=== PATIENT | female | born 1960 | race Caucasian/White ===

== ENCOUNTER 2016-10-08 14:13 | Outpatient (RCR) | payer OTHER ==
--- OUTSIDE RECORDS SUMMARY | 2016-07-23 13:25 | XMS REPORT | Continuity of Care Document ---
Author Author [facility] Organization [facility] Address Unknown Phone Unavailable Care Team Providers Care Product Safety Engineer Name Role Phone Fabienne Ray PCP [phone] Source Comments Some departments are not documenting in the electronic medical record. If you do not see the information that you expected, contact Release of Information in the Health Information Management department at [phone] for further assistance in locating additional records.[facility] Active Allergies and Adverse Reactions Allergen Noted Date Severity Reactions Comments Amoxicillin 03/05/2013 HIVES Sulfa (Sulfonamide 03/05/2013 SEE COMMENTS Swollen lips , numb face Antibiotics) Current Medications Prescription Sig. Disp. Refills Start End Date Status Date warfarin (COUMADIN) 4 mg Take 4 mg by mouth daily. Active tablet busPIRone (BUSPAR) 15 mg Take 15 mg by mouth three Active tablet times daily. METOPROLOL SUCCINATE Take 50 mg by mouth Active (TOPROL XL PO) daily. DOCOSAHEXANOIC ACID/EPA Take 1,200 mg by mouth Active (FISH OIL PO) daily. ergocalciferol (VITAMIN Take 50,000 Units by Active D-2) 50,000 unit capsule mouth every 7 days. cyanocobalamin(DIL) Inject 1,000 mg to Active (VITAMIN B-12) 100 mcg/mL area(s) as directed every 30 days. magnesium oxide (MAG-OX) Take 400 mg by mouth Active 400 mg tablet daily. CALCIUM PO Take 1,000 mg by mouth. Active Zinc 25 mg Tab Take by mouth. Active atorvastatin (LIPITOR) 40 Take 40 mg by mouth Active mg tablet daily. travoprost(+) (TRAVATAN) Insert or Apply 1 Drop to Active 0.004 % ophthalmic left eye as directed at solution bedtime daily. brimonidine(+) (ALPHAGAN) Apply 1 Drop to both Active 0.2 % ophthalmic solution eyes. doxycycline (VIBRAMYCIN) Take 100 mg by mouth Active 100 mg tablet twice daily. omeprazole DR(+) Take 20 mg by mouth Active (PRILOSEC) 20 mg capsule daily. ondansetron (ZOFRAN) 8 mg Take 8 mg by mouth every Active tablet 8 hours as needed. 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 The patient first noticed a mass in her right breast in October 2012 and consulted her REGISTERED NURSING PROFESSOR; at the time, the mass was small and was thought to be FCCs, but she was due for her annual screening mammograms which her physician encouraged her to get. Due to personal conflicts, the patient did not end up going back in for her mammograms until February. Bilateral diagnostic mammograms 02/23/13 showed a dense, poorly defined, 5.1 x 5.2 cm mass in the area of palpable concern in the upper outer right breast. Right breast ultrasound 02/23/13 showed a 3.6 x 3.6 x 3.4 cm mass corresponding to the mammographic finding. Sono-guided biopsy 02/25/13 revealed triple negative, IDC. An addendum to the pathology report noted that additional testing was run on the tumor because the histological appearance of the tumor did not match up with the tumor markers. 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 The patient saw Dr. Nam on 03/05/13 and he asked to have the pathology slides reviewed at . Regardless of the end results (triple negative breast cancer vs a neuroendocrine tumor) neoadjuvant chemotherapy was recommended. Patient was presented at Breast Conference on 03/10/13. 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 Confirmed plan for neoadjuvant therapy with regimen appropriate for small cell. Paper presented suggesting 120 month survival of at least 50%, ie more favorable than non-breast small cell. Consensus was in favor of surgical treatment for primary breast cancer (mastectomy, SLNB, possible ALND) following neoadjuvant therapy.) Genetic testing pending (history very suggestive of BRCA mutation). Bilateral mastectomy if BRCA +, consider even if negative due to FH. RT consult post op. Dr. Jaxon Kelley contacted. Neoadjuvant therapy in progress with last chemotherapy planned on May 10. Informed him of Breast Conference recommendations: Do not advise concurrent chemoradiation. Advised mastectomy/SLNB/possible ALND following chemotherapy with RT consult after surgery. Conference sheet to be faxed to Dr. Kelley at his request. 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 Fib, asymptomatic multinodular goiter, ovarian cysts, hyperlipidemia, diverticulosis, asthma. Family History: Maternal grandfather with breast cancer in his 30's- he had 4 sisters with breast cancer and 1 sister with ovarian cancer, and maternal first cousin with breast cancer at 55. REGISTERED NURSING PROFESSOR History: Menarche 10, , first live at 15, Left oophorectomy at 30 due to ovarian cysts, hysterectomy at age 38 due to abnormal bleeding. age at menopause unknown Medical Oncology: Dr. Nam Referred by: Dr. Loida Leon Social History Tobacco Use Types Packs/Day Years Used Date Never Smoker Alcohol Use Drinks/Week oz/Week Comments No Last Filed Vital Signs Vital Sign Reading Time Taken Blood Pressure 115/81 04/14/2013 9:10 PM CDT Pulse 83 04/14/2013 9:10 PM CDT Temperature 36.8 C (98.2 F) 03/08/2013 1:08 PM CDT Respiratory Rate - - Height 1.778 m (5' 10") 04/14/2013 9:10 PM CDT Weight 106.595 kg (235 lb) 04/14/2013 9:10 PM CDT Body Mass Index 33.72 04/14/2013 9:10 PM CDT Oxygen Saturation 97% 03/08/2013 1:08 PM CDT Plan of Care Health Maintenance Due Date Last Done Comments Physical (Comprehensive) 1965 Exam Pertussis Vaccine 1969 Tetanus Vaccine 1975 Cervical Cancer Screening 1979 Breast Cancer Screening 1998 Colorectal Cancer 2008 Screening Influenza Vaccine 06/20/2016 Results from Last 3 Months Not on file
[2016-07-23 13:56] LABS: BASOPHILS % (AUTO) 0 % (0-10); EOSINOPHILS # (AUTO) 0.2 10^3/uL (0.0-0.3); EOSINOPHILS % (AUTO) 3 % (0-10); LYMPHOCYTES # (AUTO) 1.5 X 10^3 (1.0-4.0); LYMPHOCYTES % (AUTO) 21 % (12-44); MEAN CORPUSCULAR HEMOGLOBIN 31 PG (25-34); MEAN CORPUSCULAR HGB CONC 35 G/DL (32-36); MEAN CORPUSCULAR VOLUME 88 FL (80-99); MEAN PLATELET VOLUME 9.7 FL (7.4-10.4); MONOCYTES # (AUTO) 0.7 X 10^3 (0.0-1.0); MONOCYTES % (AUTO) 9 % (0-12); NEUTROPHILS # (AUTO) 4.7 X 10^3 (1.8-7.8); NEUTROPHILS % (AUTO) 66 % (42-75); PLATELET COUNT 261 10^3/uL (130-400); RED BLOOD COUNT 4.45 10^6/uL (4.35-5.85); RED CELL DISTRIBUTION WIDTH 12.5 % (10.0-14.5); WHITE BLOOD COUNT 7.1 10^3/uL (4.3-11.0)
[2016-07-23 14:31] LABS: ALANINE AMINOTRANSFERASE 20 U/L (0-55); ALBUMIN 3.6 G/DL (3.2-4.5); ANION GAP 9 MMOL/L (5-14); ASPARTATE AMINO TRANSFERASE 17 U/L (5-34); BILIRUBIN,TOTAL 0.4 MG/DL (0.1-1.0); BLOOD UREA NITROGEN 15 MG/DL (7-18); BUN/CREATININE RATIO 18; CALCIUM 8.7 MG/DL (8.5-10.1); CARBON DIOXIDE 22 MMOL/L (21-32); CHLORIDE 107 MMOL/L (98-107); CREATININE SERUM 0.83 MG/DL (0.60-1.30); GFR ESTIMATED > 60; GLUCOSE 94 MG/DL (70-105); LACTATE DEHYDROGENASE 195 U/L (125-220); POTASSIUM 4.1 MMOL/L (3.6-5.0); SODIUM 138 MMOL/L (135-145); TOTAL PROTEIN 6.7 G/DL (6.4-8.2)
[2016-08-01 16:07] LABS: INR 2.6 (0.8-1.4); PROTHROMBIN TIME PATIENT 27.9 SEC (12.2-14.7)
[2016-09-16 11:50] LABS: INR 4.5 (0.8-1.4); PROTHROMBIN TIME PATIENT 43.1 SEC (12.2-14.7)
[~2016-10-08 14:13] MED LIST: ALPR0.5T PO; ATOR40TA PO; BRIM5DRO12 OD; BSP5T PO; BUSP15TA60 PO; CALCIUM PO; CHOL500044 PO; ERGO2000 PO; FAMO20TA5 PO; FISH1CAP15 PO; GABA300C PO; LORA10CA PO; MAGNESIUM PO; METO50TA7 PO; OMEP20TA33 PO; TRAV0.004S OS; VITAMIN B12 IM; WARF4TAB PO; [UNRECOGNIZED DRUG - OTHER] PO
[2016-10-08 15:53] LABS: BASOPHILS % (AUTO) 0 % (0-10); EOSINOPHILS # (AUTO) 0.2 10^3/uL (0.0-0.3); EOSINOPHILS % (AUTO) 3 % (0-10); LYMPHOCYTES % (AUTO) 27 % (12-44); MEAN CORPUSCULAR HEMOGLOBIN 30 PG (25-34); MEAN CORPUSCULAR HGB CONC 34 G/DL (32-36); MEAN CORPUSCULAR VOLUME 89 FL (80-99); MEAN PLATELET VOLUME 9.3 FL (7.4-10.4); MONOCYTES # (AUTO) 0.9 X 10^3 (0.0-1.0); MONOCYTES % (AUTO) 12 % (0-12); NEUTROPHILS # (AUTO) 4.3 X 10^3 (1.8-7.8); NEUTROPHILS % (AUTO) 58 % (42-75); PLATELET COUNT 267 10^3/uL (130-400); RED BLOOD COUNT 4.64 10^6/uL (4.35-5.85); RED CELL DISTRIBUTION WIDTH 12.4 % (10.0-14.5); WHITE BLOOD COUNT 7.4 10^3/uL (4.3-11.0)
[2016-10-08 16:40] LABS: BILIRUBIN,URINE NEGATIVE (NEGATIVE); KETONES,URINE NEGATIVE (NEGATIVE); LEUKOCYTE ESTERASE ,URINE NEGATIVE (NEGATIVE); NITRITE,URINE NEGATIVE (NEGATIVE); PH,URINE 6 (5-9); PROTEIN,URINE NEGATIVE (NEGATIVE); UROBILINOGEN,URINE NORMAL (NORMAL)
[2016-10-08 16:49] LABS: WBC,URINE RARE /HPF
[2016-10-08 16:49] LABS: INR 2.2 (0.8-1.4); PROTHROMBIN TIME PATIENT 24.4 SEC (12.2-14.7)
[2016-10-08 16:56] LABS: ANION GAP 8 MMOL/L (5-14); BLOOD UREA NITROGEN 17 MG/DL (7-18); BUN/CREATININE RATIO 23; CALCIUM 8.9 MG/DL (8.5-10.1); CARBON DIOXIDE 27 MMOL/L (21-32); CHLORIDE 104 MMOL/L (98-107); CREATININE SERUM 0.75 MG/DL (0.60-1.30); GFR ESTIMATED > 60; GLUCOSE 77 MG/DL (70-105); LACTATE DEHYDROGENASE 274 U/L (125-220); POTASSIUM 4.1 MMOL/L (3.6-5.0); SODIUM 139 MMOL/L (135-145)
[2016-11-14] MEDS ORDERED: TRAM50TA2 PO (10:41)
== END 2016-10-21 | disposition home or self-care (01) ==
LOC: ONC 14:13
PROVIDERS: ATTEND Internal Medicine Hematology & Oncology
DX: D68.59 Other primary thrombophilia (principal); Z79.01 Long term (current) use of anticoagulants
CPT/HCPCS: 36415; 36591; 80048; 80053; 81000; 83615; 85025; 85610; 99213

== ENCOUNTER 2016-11-12 05:39 | Outpatient (CLI) | payer OTHER ==
[~2016-11-12] VITALS: Ht 177.8 cm; Wt 104.8 kg
--- OUTSIDE RECORDS SUMMARY | 2016-11-12 05:44 | XMS REPORT | Continuity of Care Document ---
Author Author [facility] Organization [facility] Address Unknown Phone Unavailable Care Team Providers Care Wind Turbine Installer Name Role Phone Fabienne Ray PCP [phone] Source Comments Some departments are not documenting in the electronic medical record. If you do not see the information that you expected, contact Release of Information in the Health Information Management department at [phone] for further assistance in locating additional records.[facility] Active Allergies and Adverse Reactions [...] breast in October 2012 and consulted her ORTHOTIC AIDE; at the time, the mass was small [...] first cousin with breast cancer at 55. ORTHOTIC AIDE History: Menarche 10, , first live at [...]
[2016-11-12 11:55] VITALS: BP 123/69
== END 2016-11-12 12:10 | disposition home or self-care (01) ==
LOC: PREOP 05:39
PROVIDERS: ATTEND Surgery
DX: Z01.818 Encounter for other preprocedural examination (principal); Z11.2 Encounter for screening for other bacterial diseases; C44.722 Squamous cell carcinoma of skin of right lower limb, including hip; Z79.01 Long term (current) use of anticoagulants
CPT/HCPCS: 87081

== ENCOUNTER 2016-11-14 08:25 | Day surgery (SDC) | payer OTHER ==
[~2016-11-14] VITALS: Ht 177.8 cm; Wt 104.8 kg
--- OUTSIDE RECORDS SUMMARY | 2016-11-14 08:28 | XMS REPORT | Continuity of Care Document ---
Author Author [facility] Organization [facility] Address Unknown Phone Unavailable Care Team Providers Care Site Promotion Agent Name Role Phone Fabienne Ray PCP [phone] Source Comments Some departments are not documenting in the electronic medical record. If you do not see the information that you expected, contact Release of Information in the Health Information Management department at [phone] for further assistance in locating additional records.[facility] Active Allergies and Adverse Reactions Allergen Noted [...] breast in October 2012 and consulted her SECRETARY ADMINISTRATIVE ASSISTANT; at the time, the mass was small [...] first cousin with breast cancer at 55. SECRETARY ADMINISTRATIVE ASSISTANT History: Menarche 10, , first live at [...]
--- OUTSIDE RECORDS SUMMARY | 2016-11-14 08:29 | XMS REPORT | Continuity of Care Document ---
Author Author [facility] Organization [facility] Address Unknown Phone Unavailable Care Team Providers Care Plasterer Rough Name Role Phone Fabienne Ray PCP [phone] Source Comments Some departments are not documenting in the electronic medical record. If you do not see the information that you expected, contact Release of Information in the Health Information Management department at [phone] for further assistance in locating additional records.[facility] Active Allergies and Adverse Reactions Allergen [...] breast in October 2012 and consulted her DIRECTOR MEDICAL AFFAIRS; at the time, the mass was small [...] first cousin with breast cancer at 55. DIRECTOR MEDICAL AFFAIRS History: Menarche 10, , first live at [...]
[2016-11-14] MEDS ORDERED: VANCOMYCIN 1 GM ADD-VANTAGE VIAL IV ONE (08:31)
[2016-11-14] MEDS ORDERED: SODIUM CHLORIDE (ADD-VANTAGE) 250 ML ONE (08:31)
[2016-11-14] MEDS ORDERED: LACTATED RINGERS 1,000 ML IV PRN (09:06)
[2016-11-14] MEDS ORDERED: FAMOTIDINE 20MG/2ML IV (PEPCID) ONE (09:08)
[2016-11-14] MEDS ORDERED: ONDANSETRON 4 MG/2 ML (SDV) Z0FRAN ONE ×2 (09:08→09:19)
[2016-11-14 09:09] LABS: INR 1.3 (0.8-1.4); PROTHROMBIN TIME PATIENT 15.9 SEC (12.2-14.7)
[2016-11-14] MEDS ORDERED: ONDANSETRON 4 MG/2 ML (SDV) Z0FRAN IV ONE (09:15)
[2016-11-14] MEDS ORDERED: VANCOMYCIN 1 GM/NS 250 ML IVPB IV ONE ×2 (09:15)
[2016-11-14] MEDS ORDERED: SCOPOLAMINE 1.5 MG (TRANSDERM-SCOP) PATCH TOP ONE (09:15)
[2016-11-14] MEDS ORDERED: FAMOTIDINE 20MG/2ML IV (PEPCID) IV ONE (09:15)
[2016-11-14] MEDS ORDERED: LACTATED RINGERS 1,000 ML IV ONE (09:19)
[2016-11-14] MEDS ORDERED: fentaNYL INJECTION 100 MCG/2 ML AMP ONE (09:19)
[2016-11-14] MEDS ORDERED: proPOfol 200 MG/20 ML (DIPRIVAN) VIAL IV ONE (09:19)
[2016-11-14] MEDS ORDERED: LIDOCAINE PF 2% 10 ML (XYLOCAINE) AMP ONE (09:19)
[2016-11-14] MEDS ORDERED: MIDAZOLAM 2 MG/2 ML (VERSED) VIAL ONE (09:20)
[2016-11-14] MEDS ORDERED: BUP/EPI 0.25% 1:200,000 (MARCAINE) 30 ML VIAL ONE (09:32)
--- NOTE | 2016-11-14 09:55 | Progress Note-Pre Operative ---
Pre-Operative Progress Note H&P Reviewed The H&P was reviewed, patient examined and no changes noted. 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
[2016-11-14 10:04] VITALS: BP 115/80
[2016-11-14] MEDS ORDERED: TRAM50TA2 PO (10:41)
--- NOTE | 2016-11-14 10:41 | Progress Note-Post Operative ---
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 Estimated blood loss (mL): minimal Specimen(s) collected , cell carcinoma NGOZI OLIVEROS MD Nov 14, 2016 10:41 am
--- NOTE | 2016-11-14 10:42 | Discharge Inst-Simple/Standard ---
Discharge Inst-Standard Discharge Medications New, Converted or Re-Newed RX: RX on Chart Patient Instructions/Follow Up Plan of Care/Instructions/FU: Band-Aid off in 48 hours. Follow-up with my nurse in 10 days for suture removal Activity as Tolerated: Yes Discharge Diet: No Restrictions NGOZI OLIVEROS MD Nov 14, 2016 10:42 am
[2016-11-14] MEDS ORDERED: SEVOFLURANE (ULTANE) 15 ML INHAL SOLN ONE (10:56)
[2016-11-14] MEDS ORDERED: ONDANSETRON 4 MG/2 ML (SDV) Z0FRAN IVP PRN (11:15)
[2016-11-14] MEDS ORDERED: MEPERIDINE (DEMEROL) INJ 50 MG/ML IVP PRN (11:15)
[2016-11-14] MEDS ORDERED: morphine INJ 10 MG/ML 1ML (SYR OR VIAL) IVP PRN (11:15)
[2016-11-14] MEDS ORDERED: BUP/EPI 0.25% 1:200,000 (MARCAINE) 30 ML VIAL INJ ONE (11:15)
[2016-11-14 12:05] VITALS: BP 100/80
[2016-11-14 12:35] VITALS: BP 109/76
[2016-11-14 13:05] VITALS: BP 143/78
[2016-11-14 13:15] VITALS: BP 143/78
--- NOTE | 2016-11-15 10:27 | OPERATIVE REPORT ---
PROCEDURE PHYSICIAN: NGOZI OLIVEROS DATE OF PROCEDURE: 11/14/2016 PREOPERATIVE DIAGNOSIS: Squamous call carcinoma right posterior thigh (1 cm) POSTOPERATIVE DIAGNOSIS: Squamous cell carcinoma right posterior thigh (1 cm) OPERATION: Wide excision with frozen section. SURGEON: Kalyan. ANESTHESIA: General anesthesia. BLOOD LOSS: Minimal. FLUIDS: 300 mL of crystalloids. TYPE OF WOUND: Type I (clean wound). INDICATION FOR THE PROCEDURE: This lady was found to have a squamous cell carcinoma over the right posterior thigh on a shave biopsy performed by one of the primary physicians. She returned for formal excision with frozen section to ensure negative margins. Informed consent was obtained after reviewing the operative details and complications of wound infection and hematoma. DESCRIPTION OF PROCEDURE: She was initially placed supine on the operative table and general anesthesia induced using a laryngeal mask airway. A gram of vancomycin was administered intravenously as prophylaxis against wound infection. Sequential compression devices were placed around her legs, to minimize the risk of venous thrombosis. Subsequently, she was placed in the left lateral decubitus position and her pressure areas were padded and protected. After adequate antiseptic preparation, preemptive analgesia was established using 0.25% Marcaine and epinephrine. An elliptical incision about 3 cm long x 2 cm wide was made and the lesion excised down to the subcutaneous tissue. It was oriented with silk sutures and sent for frozen section analysis. Dr. Morales, our pathologist confirmed negative margins. The defect was then closed using a continuous suture of 5-0 nylon. A nonadherent dressing was then applied. She tolerated the procedure well, was turned supine before being extubated and taken to the recovery room in a stable condition. Job ID: [id number] Dictated Date: 11/14/2016 11:09:04 Loom Changeover Operator Date: 11/15/2016 10:20:21 / ariana
== END 2016-11-14 13:15 | disposition home or self-care (01) ==
LOC: SDC 08:25
PROVIDERS: ATTEND Surgery
DX: C44.722 Squamous cell carcinoma of skin of right lower limb, including hip (principal); Z79.01 Long term (current) use of anticoagulants
CPT/HCPCS: 36415; 85610

== ENCOUNTER 2017-01-21 10:07 | Outpatient (RCR) | payer OTHER ==
--- OUTSIDE RECORDS SUMMARY | 2016-11-04 10:38 | XMS REPORT | Continuity of Care Document ---
Author Author [facility] Organization [facility] Address Unknown Phone Unavailable Care Team Providers Care Framing Specialist Name Role Phone Fabienne Ray PCP [phone] Source Comments Some departments are not documenting in the electronic medical record. If you do not see the information that you expected, contact Release of Information in the Health Information Management department at [phone] for further assistance in locating additional records.[facility] Active Allergies and Adverse Reactions Allergen Noted [...] breast in October 2012 and consulted her CRITICAL CARE UNIT MANAGER; at the time, the mass was small [...] first cousin with breast cancer at 55. CRITICAL CARE UNIT MANAGER History: Menarche 10, , first live at [...]
[2016-11-04 11:14] LABS: BASOPHILS % (AUTO) 0 % (0-10); EOSINOPHILS # (AUTO) 0.2 10^3/uL (0.0-0.3); EOSINOPHILS % (AUTO) 4 % (0-10); LYMPHOCYTES # (AUTO) 1.7 X 10^3 (1.0-4.0); LYMPHOCYTES % (AUTO) 30 % (12-44); MEAN CORPUSCULAR HEMOGLOBIN 30 PG (25-34); MEAN CORPUSCULAR HGB CONC 34 G/DL (32-36); MEAN CORPUSCULAR VOLUME 88 FL (80-99); MEAN PLATELET VOLUME 9.3 FL (7.4-10.4); MONOCYTES # (AUTO) 0.6 X 10^3 (0.0-1.0); MONOCYTES % (AUTO) 10 % (0-12); NEUTROPHILS # (AUTO) 3.3 X 10^3 (1.8-7.8); NEUTROPHILS % (AUTO) 57 % (42-75); PLATELET COUNT 248 10^3/uL (130-400); RED BLOOD COUNT 4.67 10^6/uL (4.35-5.85); RED CELL DISTRIBUTION WIDTH 12.6 % (10.0-14.5); WHITE BLOOD COUNT 5.7 10^3/uL (4.3-11.0)
[2016-11-04 11:31] LABS: INR 3.2 (0.8-1.4); PROTHROMBIN TIME PATIENT 32.4 SEC (12.2-14.7)
[2016-11-04 11:44] LABS: ALANINE AMINOTRANSFERASE 22 U/L (0-55); ALBUMIN 3.6 G/DL (3.2-4.5); ANION GAP 8 MMOL/L (5-14); ASPARTATE AMINO TRANSFERASE 19 U/L (5-34); BILIRUBIN,TOTAL 0.6 MG/DL (0.1-1.0); BLOOD UREA NITROGEN 15 MG/DL (7-18); BUN/CREATININE RATIO 21; CALCIUM 8.9 MG/DL (8.5-10.1); CARBON DIOXIDE 24 MMOL/L (21-32); CHLORIDE 106 MMOL/L (98-107); CREATININE SERUM 0.73 MG/DL (0.60-1.30); GFR ESTIMATED > 60; GLUCOSE 99 MG/DL (70-105); LACTATE DEHYDROGENASE 187 U/L (125-220); POTASSIUM 4.4 MMOL/L (3.6-5.0); SODIUM 138 MMOL/L (135-145); TOTAL PROTEIN 6.7 G/DL (6.4-8.2)
[2016-11-17 10:29] LABS: INR 1.4 (0.8-1.4); PROTHROMBIN TIME PATIENT 17.1 SEC (12.2-14.7)
[2016-11-18 14:34] LABS: INR 1.7 (0.8-1.4)
[2016-11-20 16:30] LABS: INR 1.6 (0.8-1.4); PROTHROMBIN TIME PATIENT 18.8 SEC (12.2-14.7)
[2016-11-24 11:24] LABS: INR 3.2 (0.8-1.4)
[2016-12-02 15:01] LABS: INR 2.7 (0.8-1.4); PROTHROMBIN TIME PATIENT 28.1 SEC (12.2-14.7)
[2016-12-17 11:59] LABS: INR 2.5 (0.8-1.4); PROTHROMBIN TIME PATIENT 26.8 SEC (12.2-14.7)
[2017-01-02 15:28] LABS: INR 2.4 (0.8-1.4); PROTHROMBIN TIME PATIENT 26.1 SEC (12.2-14.7)
[~2017-01-21 10:07] MED LIST changes: +TRAM50TA2 PO
[2017-01-21 10:26] LABS: INR 1.9 (0.8-1.4); PROTHROMBIN TIME PATIENT 21.7 SEC (12.2-14.7)
== END 2017-02-02 | disposition home or self-care (01) ==
LOC: ONC 10:07
PROVIDERS: ATTEND Internal Medicine Hematology & Oncology
DX: D68.59 Other primary thrombophilia (principal); Z79.01 Long term (current) use of anticoagulants
CPT/HCPCS: 36415; 36591; 80053; 83615; 85025; 85610; 99213

== ENCOUNTER → 2017-03-03 | Outpatient (CLI) | payer OTHER ==
[~2017-03-03] MED LIST changes: +CATHETER FLUSH 10 ML SYR IV PRN; +IOHEXOL 350 MG/ML 100 ML (OMNIPAQUE 350) VIAL IV ONE; +NS 100 ML (IVPB) BAG IV ONE
--- NOTE | 2017-03-03 13:32 | Diagnostic Imaging Report ---
EXAMINATION: CT scan of the neck and chest performed with intravenous contrast. INDICATION: History of small cell cancer in the breast. COMPARISON: 10/16/2016 exam of the chest and 03/14/2015 exam of the neck. 100 mL of Omnipaque 350 is administered intravenously. FINDINGS: CT NECK: There is no lymphadenopathy seen. The submandibular, and the parotid glands appear unremarkable. The thyroid glands demonstrate hypodensities in the posterior aspect of the right and left lobes similar to the prior studies up to 1.1 cm on the right and 1 cm on the left without change. The mucosal pharyngeal space appear fairly symmetric. Vascular contrast enhancement is grossly unremarkable. There is no soft tissue mass seen. The right maxillary sinus demonstrates minimal mucosal thickening. There is also mild mucosal thickening in the right ethmoidal air cells. The osseous structures demonstrate degenerative changes in the uncovertebral and facet joints. A sclerotic lesion measuring 1 cm in C7 vertebral body is similar to 2015 exam and has been stable from multiple prior studies in favor of a bony island. CT CHEST: The lungs demonstrate no significant consolidation or mass. The heart size is normal. The mediastinum demonstrate no mass, or lymphadenopathy. No hilar or axillary lymphadenopathy seen. Stable skin thickening in the right breast is seen. No pleural or pericardial effusion. The thoracic aorta is normal in caliber. There is an infusion port with the tip at SVC level. Osseous structures appear grossly unremarkable. Sections of the upper abdomen demonstrate cholecystectomy clips. IMPRESSION: CT NECK: 1. No soft tissue mass or lymphadenopathy seen. 2. Unchanged thyroid nodules. 3. Unchanged 1 cm sclerotic focus in C7 vertebral body, presumably a bony island. CT CHEST: Stable post-therapeutic changes in the right breast. No evidence of tumor recurrence or metastasis. Dictated by: Dictated on workstation # [id number]
== END ==
LOC: RAD 09:53
PROVIDERS: ATTEND Internal Medicine Hematology & Oncology
DX: R22.1 Localized swelling, mass and lump, neck (principal); Z85.3 Personal history of malignant neoplasm of breast
CPT/HCPCS: 70491; 71260

== ENCOUNTER 2017-03-21 22:42 | Emergency (ER) | payer OTHER ==
[~2017-03-21] VITALS: Ht 177.8 cm; Wt 102.1 kg
[~2017-03-21 22:42] MED LIST changes: -CATHETER FLUSH 10 ML SYR IV PRN; -IOHEXOL 350 MG/ML 100 ML (OMNIPAQUE 350) VIAL IV ONE; -NS 100 ML (IVPB) BAG IV ONE
--- NOTE | 2017-03-21 22:59 | ED Chest Pain ---
General Chief Complaint: Chest Pain Stated Complaint: CHEST PAIN Nursing Triage Note: PT TO ED 7 W/ C/O INTERMITTENT CHEST PAIN ONSET 1700 TONIGHT ACCOMPANIED BY SOB. ALSO C/O COUGH X5 MOS Nursing Sepsis Screen: No Definite Risk Source: patient, RN notes reviewed Exam Limitations: no limitations History of Present Illness Time seen by provider: 22:54 Initial Comments Patient presents c/ c/o intermittent chest pain since 17:00. (+) dyspnea when having the pain. Also had some diaphoresis this evening as well. States she has been battling a cough for the last 5 months and is scheduled to see her PCP on Friday in follow up regarding her cough. No known fever. No N/V. Timing/Duration: 4-6 hours, intermittent Severity/Quality: moderate, pressure Location: substernal Radiation: no radiation Activities at Onset: none Modifying Factors: improves with other (none) ASA po CORPORATE RELATIONS MANAGER: No NTG SL CORPORATE RELATIONS MANAGER: No Associated Symptoms: diaphoresis, shortness of breath Allergies and Home Medications Allergies Coded Allergies: NSAIDS (Non-Steroidal Anti-Inflamma (Verified Allergy, Severe, ANAPHYLAXIS , 03/03/17) Sulfa (Sulfonamide Antibiotics) (Unverified Allergy, Intermediate, SWELLING, 03/03/17) amoxicillin (Unverified Allergy, Intermediate, HIVES, 03/03/17) Iodinated Contrast Media - Oral and (Unverified Allergy, Unknown, 05/30/14) atorvastatin (Unverified Allergy, Unknown, 12/19/14) Uncoded Allergies: DIFINITY DYE (Allergy, Unknown, 05/30/14) Home Medications Alprazolam 0.5 Mg Tablet, 0.5 MG PO HS, (Reported) Buspirone HCl 15 Mg Tablet, 15 MG PO HS, (Reported) Cholecalciferol (Vitamin D3) 5,000 Unit Tablet, 5,000 UNIT PO DAILY, (Reported) Famotidine 20 Mg Tablet, 20 MG PO BID, (Reported) Gabapentin 300 Mg Capsule, 300 MG PO HS, (Reported) Loratadine 10 Mg Capsule, 10 MG PO HS, (Reported) Metoprolol Succinate 50 Mg Tab.sr.24h, 50 MG PO HS, (Reported) Omeprazole Magnesium 20 Mg Tablet.dr, 20 MG PO DAILY PRN for HEARTBURN, ( Reported) Warfarin Sodium 4 Mg Tablet, 4 MG PO HS, (Reported) [Magnesium/Calcium/Zi] , 1 TAB PO HS, (Reported) [Vitamin B12] , 1,000 MCG IM MONTHLY, (Reported) Review of Systems Constitutional: see HPI, diaphoresis Respiratory: See HPI, Cough, Shortness of Air, SOA at Rest Cardiovascular: See HPI, Chest Pain All Other Systems Reviewed Negative Unless Noted: Yes (Negative excepted noted.) Past [id number]-Itikpt-[id number] Hx Patient Social History Alcohol Use: Denies Use Recreational Drug Use: No Smoking Status: Never a Smoker Recent Foreign Travel: No Contact w/Someone Who Travel: No Recent Infectious Disease Expo: No Recent Hopitalizations: No Immunizations Up To Date Date of Influenza Vaccine: Jul 20, 2016 Seasonal Allergies Seasonal Allergies: Yes Surgeries HX Surgeries: Yes (PORT VENA CAVA FILTER, SIMOID colectomy, port) Surgeries: Abdominal, Adenoidectomy, Appendectomy, Section, Gallbladder, Hysterectomy, Tonsillectomy Respiratory Hx Respiratory Disorders: Yes Respiratory Disorders: Asthma Cardiovascular Hx Cardiac Disorders: Yes Cardiac Disorders: Deep Vein Thrombosis, Irregular Heartbeat Neurological Hx Neurological Disorders: No Reproductive System Hx Reproductive Disorders: No SUPERVISOR PAINTING History: Hysterectomy Genitourinary Hx Genitourinary Disorders: No Gastrointestinal Hx Gastrointestinal Disorders: Yes Gastrointestinal Disorders: Diverticulosis Musculoskeletal Hx Musculoskeletal Disorders: No Endocrine Hx Endocrine Disorders: Yes (nodules on thyroid) HEENT HX ENT Disorders: No Cancer Hx Cancer: Yes Cancer: Breast Psychosocial Hx Psychiatric Problems: No Integumentary HX Skin/Integumentary Disorder: Yes (SCC) Blood Transfusions Hx Blood Disorders: Yes (ANTI THROMBIN 3 DEFICENCY) Physical Exam Vital Signs Vital Sign - Last 12Hours 03/21/17 22:42 Temp 98.3 Pulse 73 Resp 14 B/P (MAP) 135/97 Pulse Ox 95 O2 Delivery Room Air Capillary Refill : Less Than 3 Seconds General Appearance: No Apparent Distress, WD/WN, Obese Respiratory: Lungs Clear, No Respiratory Distress Cardiovascular: Regular Rate, Rhythm Rectal: Deferred Neurologic/Psychiatric: Alert, Oriented x3, No Motor/Sensory Deficits, Other ( seems somewhat anxious; sighing a lot) Skin: Warm/Dry Progress/Results/Core Measures Results/Orders Lab Results Laboratory Tests Test 03/21/17 22:50 03/21/17 23:22 Range/Units White Blood Count 7.6 4.3-11.0 10^3/uL Red Blood Count 4.52 4.35-5.85 10^6/uL Hemoglobin 13.8 11.5-16.0 G/DL Hematocrit 40 35-52 % Mean Corpuscular Volume 88 80-99 FL Mean Corpuscular Hemoglobin 31 25-34 PG Mean Corpuscular Hemoglobin Concent 35 32-36 G/DL Red Cell Distribution Width 12.1 10.0-14.5 % Platelet Count 240 130-400 10^3/uL Mean Platelet Volume 10.0 7.4-10.4 FL Neutrophils (%) (Auto) 62 42-75 % Lymphocytes (%) (Auto) 26 12-44 % Monocytes (%) (Auto) 9 0-12 % Eosinophils (%) (Auto) 3 0-10 % Basophils (%) (Auto) 0 0-10 % Neutrophils # (Auto) 4.7 1.8-7.8 X 10^3 Lymphocytes # (Auto) 2.0 1.0-4.0 X 10^3 Monocytes # (Auto) 0.7 0.0-1.0 X 10^3 Eosinophils # (Auto) 0.3 0.0-0.3 10^3/uL Basophils # (Auto) 0.0 0.0-0.1 10^3/uL Prothrombin Time 43.7 H 12.2-14.7 SEC INR Comment 4.6 H 0.8-1.4 Sodium Level 141 135-145 MMOL/L Potassium Level 3.6 3.6-5.0 MMOL/L Chloride Level 106 98-107 MMOL/L Carbon Dioxide Level 22 21-32 MMOL/L Anion Gap 13 5-14 MMOL/L Blood Urea Nitrogen 19 H 7-18 MG/DL Creatinine 0.84 0.60-1.30 MG/DL Estimat Glomerular Filtration Rate > 60 BUN/Creatinine Ratio 23 Glucose Level 136 H 70-105 MG/DL Calcium Level 9.3 8.5-10.1 MG/DL Magnesium Level 1.9 1.8-2.4 MG/DL Total Bilirubin 0.4 0.1-1.0 MG/DL Aspartate Amino Transf (AST/SGOT) 16 5-34 U/L Alanine Aminotransferase (ALT/SGPT) 19 0-55 U/L Alkaline Phosphatase 68 40-136 U/L Troponin I < 0.30 <0.30 NG/ML B-Type Natriuretic Peptide 45.6 <100.0 PG/ML Total Protein 7.1 6.4-8.2 G/DL Albumin 3.8 3.2-4.5 G/DL Lipase 32 8-78 U/L Thyroid Stimulating Hormone (TSH) 1.76 0.35-4.94 UIU/ML Urine Color YELLOW Urine Clarity CLEAR Urine pH 6 5-9 Urine Specific [place] 1.020 1.016-1.022 Urine Protein NEGATIVE NEGATIVE Urine Glucose (UA) NEGATIVE NEGATIVE Urine Ketones NEGATIVE NEGATIVE Urine Nitrite NEGATIVE NEGATIVE Urine Bilirubin NEGATIVE NEGATIVE Urine Urobilinogen NORMAL NORMAL MG/DL Urine Leukocyte Esterase 1+ H NEGATIVE Urine RBC (Auto) NEGATIVE NEGATIVE Urine RBC RARE /HPF Urine WBC NONE /HPF Urine Crystals NONE /LPF Urine Bacteria NEGATIVE /HPF Urine Casts NONE /LPF Urine Mucus NEGATIVE /LPF Urine Culture Indicated NO My Orders Orders - SALVATORE SOTO DO Implanted Port: Access (03/21/17 22:59) Ekg Tracing (03/21/17 22:59) BNP (03/21/17 22:59) Cbc With Automated Diff (03/21/17 22:59) Comprehensive Metabolic Panel (03/21/17 22:59) Lipase (03/21/17 22:59) Magnesium (03/21/17 22:59) Protime With Inr (03/21/17 22:59) Thyroid Stimulating Hormone (03/21/17 22:59) Troponin I (03/21/17 22:59) Ua Culture If Indicated (03/21/17 22:59) Chest 1 View, Ap/Pa Only (03/21/17 22:59) Vital Signs/I&O Vital Sign - Last 12Hours 03/21/17 03/21/17 03/22/17 22:42 22:57 00:27 Temp 98.3 Pulse 73 80 Resp 14 20 B/P (MAP) 135/97 Pulse Ox 95 98 O2 Delivery Room Air Room Air Blood Pressure Mean: 110 Progress Note : Progress Note Really feel there is an anxiety component to the patient's symptoms this evening. ECG Initial ECG Impression Date: Mar 21, 2017 Initial ECG Impression Time: 22:49 Initial ECG Rate: 72 Initial ECG Rhythm: Normal Sinus Initial ECG Intervals: Normal Initial ECG Impression: Normal Initial ECG Comparisson: Unchanged Diagnostic Imaging Diagonstic Imaging: Xray Plain Films/CT/US/NM/MRI: chest Reviewed: Reviewed by Me (NAD) Departure Impression Impression: Primary Impression: Non-cardiac chest pain Additional Impressions: Chronic cough Elevated INR (international normalized ratio) due to prior anticoagulant medication ingestion Disposition: 01 HOME, SELF-CARE Condition: Stable Departure-Patient Inst. Decision time for Depature: 00:14 Referrals: LAINEY HIGGINBOTHAM MD (PCP/Family) Primary Care Physician Patient Instructions: Chest Pain That Is Not Caused by the Heart (DC) Add. Discharge Instructions: All discharge instructions reviewed with patient and/or family. Voiced understanding. HOLD YOUR COUMADIN UNTIL FRIDAY. KEEP YOUR APPOINTMENT WITH DR. HIGGINBOTHAM ON FRIDAY, SCHEDULED. RETURN IF YOUR SYMPTOMS WORSEN. SALVATORE SOTO DO Mar 21, 2017 22:59
[2017-03-21 23:06] LABS: BASOPHILS % (AUTO) 0 % (0-10); EOSINOPHILS # (AUTO) 0.3 10^3/uL (0.0-0.3); EOSINOPHILS % (AUTO) 3 % (0-10); LYMPHOCYTES % (AUTO) 26 % (12-44); MEAN CORPUSCULAR HEMOGLOBIN 31 PG (25-34); MEAN CORPUSCULAR HGB CONC 35 G/DL (32-36); MEAN CORPUSCULAR VOLUME 88 FL (80-99); MONOCYTES # (AUTO) 0.7 X 10^3 (0.0-1.0); MONOCYTES % (AUTO) 9 % (0-12); NEUTROPHILS # (AUTO) 4.7 X 10^3 (1.8-7.8); NEUTROPHILS % (AUTO) 62 % (42-75); PLATELET COUNT 240 10^3/uL (130-400); RED BLOOD COUNT 4.52 10^6/uL (4.35-5.85); RED CELL DISTRIBUTION WIDTH 12.1 % (10.0-14.5); WHITE BLOOD COUNT 7.6 10^3/uL (4.3-11.0)
[2017-03-21 23:10] LABS: INR 4.6 (0.8-1.4); PROTHROMBIN TIME PATIENT 43.7 SEC (12.2-14.7)
[2017-03-21 23:20] LABS: ALANINE AMINOTRANSFERASE 19 U/L (0-55); ALBUMIN 3.8 G/DL (3.2-4.5); ANION GAP 13 MMOL/L (5-14); ASPARTATE AMINO TRANSFERASE 16 U/L (5-34); BILIRUBIN,TOTAL 0.4 MG/DL (0.1-1.0); BLOOD UREA NITROGEN 19 MG/DL (7-18); BUN/CREATININE RATIO 23; CALCIUM 9.3 MG/DL (8.5-10.1); CARBON DIOXIDE 22 MMOL/L (21-32); CHLORIDE 106 MMOL/L (98-107); CREATININE SERUM 0.84 MG/DL (0.60-1.30); GFR ESTIMATED > 60; GLUCOSE 136 MG/DL (70-105); LIPASE 32 U/L (8-78); MAGNESIUM 1.9 MG/DL (1.8-2.4); POTASSIUM 3.6 MMOL/L (3.6-5.0); SODIUM 141 MMOL/L (135-145); TOTAL PROTEIN 7.1 G/DL (6.4-8.2)
[2017-03-21 23:29] LABS: BILIRUBIN,URINE NEGATIVE (NEGATIVE); KETONES,URINE NEGATIVE (NEGATIVE); LEUKOCYTE ESTERASE ,URINE 1+ (NEGATIVE); NITRITE,URINE NEGATIVE (NEGATIVE); PH,URINE 6 (5-9); PROTEIN,URINE NEGATIVE (NEGATIVE); UROBILINOGEN,URINE NORMAL (NORMAL)
[2017-03-21 23:40] LABS: THYROID STIMULATING HORMONE 1.76 UIU/ML (0.35-4.94); TROPONIN I < 0.30 NG/ML (<0.30)
[2017-03-22 00:27] VITALS: BP 119/80
--- NOTE | 2017-03-22 09:09 | Diagnostic Imaging Report ---
EXAMINATION: Portable chest. INDICATION: Chest pain. Correlation made with a CT of the chest from March 03, 2017. FINDINGS: A left subclavian port is present. There is no focal pulmonary consolidation. There is no effusion or evidence of pneumothorax. Heart size and mediastinal contours appear stable without evidence of failure. No suspicious osseous abnormality is demonstrated. IMPRESSION: No radiographic evidence of an acute cardiopulmonary process. Dictated by: Dictated on workstation # [id number]
== END 2017-03-22 00:27 | disposition home or self-care (01) ==
LOC: EDUNIT# 22:42 → ER 22:43
DX: R07.89 Other chest pain (principal); R05 Cough; R79.1 Abnormal coagulation profile; Z79.01 Long term (current) use of anticoagulants; Z90.49 Acquired absence of other specified parts of digestive tract; Z86.718 Personal history of other venous thrombosis and embolism
CPT/HCPCS: 36415; 71010; 80053; 81000; 83690; 83735; 83880; 84443; 84484; 85025; 85610

== ENCOUNTER 2017-05-05 09:54 | Outpatient (RCR) | payer OTHER ==
[2017-02-14 16:03] LABS: INR 2.9 (0.8-1.4); PROTHROMBIN TIME PATIENT 30.2 SEC (12.2-14.7)
[2017-03-03 09:56] LABS: BASOPHILS % (AUTO) 0 % (0-10); EOSINOPHILS # (AUTO) 0.4 10^3/uL (0.0-0.3); EOSINOPHILS % (AUTO) 6 % (0-10); LYMPHOCYTES # (AUTO) 1.6 X 10^3 (1.0-4.0); LYMPHOCYTES % (AUTO) 25 % (12-44); MEAN CORPUSCULAR HEMOGLOBIN 31 PG (25-34); MEAN CORPUSCULAR HGB CONC 35 G/DL (32-36); MEAN CORPUSCULAR VOLUME 88 FL (80-99); MEAN PLATELET VOLUME 9.6 FL (7.4-10.4); MONOCYTES # (AUTO) 0.6 X 10^3 (0.0-1.0); MONOCYTES % (AUTO) 9 % (0-12); NEUTROPHILS # (AUTO) 3.8 X 10^3 (1.8-7.8); NEUTROPHILS % (AUTO) 60 % (42-75); PLATELET COUNT 252 10^3/uL (130-400); RED BLOOD COUNT 4.65 10^6/uL (4.35-5.85); RED CELL DISTRIBUTION WIDTH 12.6 % (10.0-14.5); WHITE BLOOD COUNT 6.3 10^3/uL (4.3-11.0)
[2017-03-03 10:30] LABS: ALANINE AMINOTRANSFERASE 20 U/L (0-55); ALBUMIN 3.6 G/DL (3.2-4.5); ANION GAP 6 MMOL/L (5-14); ASPARTATE AMINO TRANSFERASE 17 U/L (5-34); BILIRUBIN,TOTAL 0.6 MG/DL (0.1-1.0); BLOOD UREA NITROGEN 22 MG/DL (7-18); BUN/CREATININE RATIO 29; CALCIUM 8.9 MG/DL (8.5-10.1); CARBON DIOXIDE 27 MMOL/L (21-32); CHLORIDE 107 MMOL/L (98-107); CREATININE SERUM 0.77 MG/DL (0.60-1.30); GFR ESTIMATED > 60; GLUCOSE 98 MG/DL (70-105); LACTATE DEHYDROGENASE 174 U/L (125-220); POTASSIUM 4.1 MMOL/L (3.6-5.0); SODIUM 140 MMOL/L (135-145); TOTAL PROTEIN 6.7 G/DL (6.4-8.2)
[2017-05-05 10:37] LABS: BASOPHILS % (AUTO) 0 % (0-10); EOSINOPHILS # (AUTO) 0.3 10^3/uL (0.0-0.3); EOSINOPHILS % (AUTO) 4 % (0-10); LYMPHOCYTES # (AUTO) 1.8 X 10^3 (1.0-4.0); LYMPHOCYTES % (AUTO) 24 % (12-44); MEAN CORPUSCULAR HEMOGLOBIN 30 PG (25-34); MEAN CORPUSCULAR HGB CONC 34 G/DL (32-36); MEAN CORPUSCULAR VOLUME 89 FL (80-99); MEAN PLATELET VOLUME 9.7 FL (7.4-10.4); MONOCYTES # (AUTO) 0.7 X 10^3 (0.0-1.0); MONOCYTES % (AUTO) 10 % (0-12); NEUTROPHILS # (AUTO) 4.5 X 10^3 (1.8-7.8); NEUTROPHILS % (AUTO) 62 % (42-75); PLATELET COUNT 273 10^3/uL (130-400); RED BLOOD COUNT 4.73 10^6/uL (4.35-5.85); RED CELL DISTRIBUTION WIDTH 12.4 % (10.0-14.5); WHITE BLOOD COUNT 7.3 10^3/uL (4.3-11.0)
[2017-05-05 11:07] LABS: INR 2.6 (0.8-1.4)
[2017-05-05 11:15] LABS: ALANINE AMINOTRANSFERASE 26 U/L (0-55); ALBUMIN 3.8 GM/DL (3.2-4.5); ANION GAP 9 MMOL/L (5-14); ASPARTATE AMINO TRANSFERASE 20 U/L (5-34); BILIRUBIN,TOTAL 0.6 MG/DL (0.1-1.0); BLOOD UREA NITROGEN 21 MG/DL (7-18); BUN/CREATININE RATIO 27; CARBON DIOXIDE 26 MMOL/L (21-32); CHLORIDE 104 MMOL/L (98-107); CREATININE SERUM 0.79 MG/DL (0.60-1.30); GFR ESTIMATED > 60; GLUCOSE 100 MG/DL (70-105); POTASSIUM 4.5 MMOL/L (3.6-5.0); SODIUM 139 MMOL/L (135-145); TOTAL PROTEIN 6.8 GM/DL (6.4-8.2)
== END 2017-05-15 | disposition home or self-care (01) ==
LOC: ONC 09:54
PROVIDERS: ATTEND Internal Medicine Hematology & Oncology
DX: D68.59 Other primary thrombophilia (principal); Z79.01 Long term (current) use of anticoagulants
CPT/HCPCS: 36415; 36591; 80053; 83615; 85025; 85610

== ENCOUNTER 2017-05-29 15:30 | Outpatient (RCR) | payer OTHER ==
[2017-03-24 10:53] LABS: MEAN PLATELET VOLUME 9.9 FL (7.4-10.4); RED BLOOD COUNT 4.96 10^6/uL (4.35-5.85); RED CELL DISTRIBUTION WIDTH 12.3 % (10.0-14.5); WHITE BLOOD COUNT 7.5 10^3/uL (4.3-11.0)
[2017-03-24 11:07] LABS: INR 1.3 (0.8-1.4)
[2017-03-24 11:16] LABS: ALANINE AMINOTRANSFERASE 21 U/L (0-55); ANION GAP 8 MMOL/L (5-14); ASPARTATE AMINO TRANSFERASE 21 U/L (5-34); BILIRUBIN,TOTAL 0.5 MG/DL (0.1-1.0); BLOOD UREA NITROGEN 24 MG/DL (7-18); BUN/CREATININE RATIO 29; CALCIUM 9.3 MG/DL (8.5-10.1); CARBON DIOXIDE 27 MMOL/L (21-32); CHLORIDE 105 MMOL/L (98-107); CREATININE SERUM 0.82 MG/DL (0.60-1.30); GFR ESTIMATED > 60; GLUCOSE 87 MG/DL (70-105); POTASSIUM 4.7 MMOL/L (3.6-5.0); SODIUM 140 MMOL/L (135-145); TOTAL PROTEIN 7.6 G/DL (6.4-8.2)
[2017-03-24 11:40] LABS: THYROID STIMULATING HORMONE 1.69 UIU/ML (0.35-4.94)
[2017-04-08 16:53] LABS: INR 2.5 (0.8-1.4)
[2017-05-29 16:11] LABS: INR 2.7 (0.8-1.4); PROTHROMBIN TIME PATIENT 28.8 SEC (12.2-14.7)
== END 2017-06-22 | disposition home or self-care (01) ==
LOC: LAB 15:30
PROVIDERS: ATTEND Nurse Practitioner Family
DX: R05 Cough (principal); R22.1 Localized swelling, mass and lump, neck; Z79.01 Long term (current) use of anticoagulants
CPT/HCPCS: 36415; 80053; 84439; 84443; 85027; 85610; 87070; 87205

== ENCOUNTER → 2017-05-29 | Outpatient (CLI) | payer OTHER ==
[2017-05-29 16:18] LABS: ALANINE AMINOTRANSFERASE 21 U/L (0-55); ALBUMIN 3.7 GM/DL (3.2-4.5); ANION GAP 8 MMOL/L (5-14); ASPARTATE AMINO TRANSFERASE 19 U/L (5-34); BILIRUBIN,TOTAL 0.5 MG/DL (0.1-1.0); BLOOD UREA NITROGEN 16 MG/DL (7-18); BUN/CREATININE RATIO 21; CARBON DIOXIDE 25 MMOL/L (21-32); CHLORIDE 107 MMOL/L (98-107); CREATININE SERUM 0.77 MG/DL (0.60-1.30); GFR ESTIMATED > 60; GLUCOSE 116 MG/DL (70-105); MAGNESIUM 1.8 MG/DL (1.8-2.4); SODIUM 140 MMOL/L (135-145)
[2017-05-30 08:07] LABS: FOLIC ACID 12.1 ng/mL (1.5-24.0)
== END ==
LOC: LAB 15:29
PROVIDERS: ATTEND Family Medicine
DX: R91.8 Other nonspecific abnormal finding of lung field (principal); G90.09 Other idiopathic peripheral autonomic neuropathy; G62.2 Polyneuropathy due to other toxic agents; E53.8 Deficiency of other specified B group vitamins
CPT/HCPCS: 36415; 80053; 82607; 82746; 83036; 83735

== ENCOUNTER 2017-06-16 15:18 | Outpatient (RCR) | payer OTHER | END 2017-07-19 | disposition home or self-care (01) | LOC: ONC 15:18 | PROVIDERS: ATTEND Internal Medicine Hematology & Oncology | DX: D68.59 Other primary thrombophilia (principal); Z79.01 Long term (current) use of anticoagulants; Z45.2 Encounter for adjustment and management of vascular access device | CPT/HCPCS: 96523 ==

== ENCOUNTER 2017-09-15 08:00 | Outpatient (RCR) | payer OTHER | END 2017-10-16 14:33 | disposition home or self-care (01) | DX: M54.5 Low back pain (principal) ==

== ENCOUNTER → 2017-10-06 | Outpatient (CLI) | payer OTHER ==
--- NOTE | 2017-10-06 12:53 | Diagnostic Imaging Report ---
EXAMINATION: Bilateral diagnostic mammogram with tomography evaluation. The current study was also evaluated with a Computer Aided Detection (CAD) system. 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 The patient also has palpable lumps bilaterally. FINDINGS: The right breast demonstrates skin thickening and a biopsy clip in the outer aspect. The overall appearance has not changed from the previous study. The left breast demonstrates a retroareolar circumscribed lesion which appears more prominent compared to the prior studies but without change, suggestive of a cyst, less than 1 cm in size. There are also retroareolar calcifications without change from multiple prior exams, suggestive of benign etiology. IMPRESSION: Stable mammographic findings. An ultrasound evaluation is pending. ACR BI-RADS Category 0: Incomplete. (Needs additional imaging evaluation). Result letter will be mailed to the patient. Note: At least 10% of breast cancer is not imaged by mammography. Dictated by: Dictated on workstation # [id number]
--- NOTE | 2017-10-06 13:36 | Diagnostic Imaging Report ---
EXAMINATION: Bilateral breast ultrasound. INDICATION: History of small cell cancer in the breast. The patient also has a palpable lump. TECHNIQUE: The four quadrants and retroareolar region of the breasts were scanned bilaterally. FINDINGS: The left breast lump laterally demonstrates no underlying lesion with the other quadrants appearing unremarkable. In the right breast, there is a stable cystic lesion measuring 1 cm in size at the 9 o'clock zone 4 cm from the nipple with thin septations and no internal vascularity, similar to multiple prior exams including 01/22/2016 with no adverse development. It is also stable from July 2015. No other lesion is identified. IMPRESSION: No suspicious mass. Clinical followup of the palpable areas is recommended. ACR BI-RADS Category 2: Benign findings. Dictated by: Dictated on workstation # [id number]
== END ==
LOC: RAD 12:19
PROVIDERS: ATTEND Internal Medicine Hematology & Oncology
DX: N64.59 Other signs and symptoms in breast (principal); Z85.3 Personal history of malignant neoplasm of breast
CPT/HCPCS: 77066

== ENCOUNTER → 2017-10-08 | Outpatient (CLI) | payer OTHER | LOC: CARD 10:13 | PROVIDERS: ATTEND Internal Medicine Interventional Cardiology | DX: I49.3 Ventricular premature depolarization (principal); D68.59 Other primary thrombophilia | CPT/HCPCS: 93306 ==

== ENCOUNTER 2017-10-27 16:59 | Outpatient (RCR) | payer OTHER ==
[2017-07-30 13:33] LABS: INR 3.1 (0.8-1.4); PROTHROMBIN TIME PATIENT 31.9 SEC (12.2-14.7)
[2017-09-04 11:21] LABS: INR 2.7 (0.8-1.4); PROTHROMBIN TIME PATIENT 28.9 SEC (12.2-14.7)
[2017-09-30 12:13] LABS: BASOPHILS % (AUTO) 0 % (0-10); EOSINOPHILS # (AUTO) 0.4 10^3/uL (0.0-0.3); EOSINOPHILS % (AUTO) 4 % (0-10); HEMATOCRIT 40 % (35-52); HEMOGLOBIN 13.8 G/DL (11.5-16.0); LYMPHOCYTES # (AUTO) 1.5 X 10^3 (1.0-4.0); LYMPHOCYTES % (AUTO) 17 % (12-44); MEAN CORPUSCULAR HEMOGLOBIN 31 PG (25-34); MEAN CORPUSCULAR HGB CONC 35 G/DL (32-36); MEAN CORPUSCULAR VOLUME 89 FL (80-99); MEAN PLATELET VOLUME 9.9 FL (7.4-10.4); MONOCYTES # (AUTO) 0.8 X 10^3 (0.0-1.0); MONOCYTES % (AUTO) 9 % (0-12); NEUTROPHILS # (AUTO) 6.2 X 10^3 (1.8-7.8); NEUTROPHILS % (AUTO) 70 % (42-75); PLATELET COUNT 254 10^3/uL (130-400); RED BLOOD COUNT 4.48 10^6/uL (4.35-5.85); RED CELL DISTRIBUTION WIDTH 12.3 % (10.0-14.5); WHITE BLOOD COUNT 8.8 10^3/uL (4.3-11.0)
[2017-09-30 12:30] LABS: INR 2.7 (0.8-1.4); PROTHROMBIN TIME PATIENT 28.8 SEC (12.2-14.7)
[2017-09-30 12:39] LABS: ALANINE AMINOTRANSFERASE 27 U/L (0-55); ALBUMIN 3.7 GM/DL (3.2-4.5); ALKALINE PHOSPHATASE 71 U/L (40-136); BILIRUBIN,TOTAL 0.4 MG/DL (0.1-1.0); BUN/CREATININE RATIO 19; CALCIUM 8.7 MG/DL (8.5-10.1); CARBON DIOXIDE 25 MMOL/L (21-32); CHLORIDE 103 MMOL/L (98-107); CREATININE SERUM 0.69 MG/DL (0.60-1.30); GFR ESTIMATED > 60; GLUCOSE 91 MG/DL (70-105); POTASSIUM 4.3 MMOL/L (3.6-5.0); SODIUM 137 MMOL/L (135-145); TOTAL PROTEIN 7.1 GM/DL (6.4-8.2)
[2017-10-27 17:27] LABS: INR 1.8 (0.8-1.4); PROTHROMBIN TIME PATIENT 21.3 SEC (12.2-14.7)
== END 2017-10-28 | disposition home or self-care (01) ==
LOC: ONC 16:59
PROVIDERS: ATTEND Internal Medicine Hematology & Oncology
DX: D68.59 Other primary thrombophilia (principal); Z79.01 Long term (current) use of anticoagulants
CPT/HCPCS: 36591; 80053; 83615; 85025; 85610; 99213

== ENCOUNTER → 2017-12-17 | Outpatient (REF) ==
--- NOTE | 2017-12-17 16:25 | Diagnostic Imaging Report ---
PROCEDURE: CT head and CT cervical spine without contrast. TECHNIQUE: Multiple contiguous axial images were obtained through the brain and cervical spine without the use of intravenous contrast. Sagittal and coronal reformations through the cervical spine were then performed. INDICATION: Fall. Headache and neck stiffness. COMPARISON: None. FINDINGS: Head CT: No acute intracranial hemorrhage, mass effect, or edema is seen. There is mild atrophy. The ventricles appear normal. There are a few focal areas of hypodensity in periventricular white matter which are nonspecific but likely related to chronic microvascular ischemic change. Paranasal sinuses and mastoids are clear, as visualized. Cervical spine CT: No acute fracture, malalignment, or osseous destructive process is seen. Vertebral body heights are maintained. There is mild disc space narrowing throughout the cervical spine, most pronounced at C5/C6 and C6/C7. Uncovertebral joint spurring and disc osteophyte complex result in foraminal and central narrowing at C5/C6. Prevertebral soft tissues appear unremarkable. IMPRESSION: 1. No evidence of acute intracranial abnormality. 2. No evidence of an acute cervical spine abnormality. Degenerative changes in cervical spine, as described. Dictated by: Dictated on workstation # [id number]
== END | disposition home or self-care (01) ==
LOC: OCC 15:25
PROVIDERS: ATTEND Nurse Practitioner Family
CPT/HCPCS: 70450; 72125

== ENCOUNTER → 2018-02-23 | Outpatient (CLI) | payer OTHER ==
[2018-02-23 12:30] LABS: BASOPHILS % (AUTO) 0 % (0-10); EOSINOPHILS # (AUTO) 0.2 10^3/uL (0.0-0.3); EOSINOPHILS % (AUTO) 2 % (0-10); HEMATOCRIT 41 % (35-52); HEMOGLOBIN 14.5 G/DL (11.5-16.0); LYMPHOCYTES # (AUTO) 1.4 X 10^3 (1.0-4.0); LYMPHOCYTES % (AUTO) 13 % (12-44); MEAN CORPUSCULAR HEMOGLOBIN 32 PG (25-34); MEAN CORPUSCULAR HGB CONC 35 G/DL (32-36); MEAN CORPUSCULAR VOLUME 90 FL (80-99); MEAN PLATELET VOLUME 9.9 FL (7.4-10.4); MONOCYTES # (AUTO) 0.8 X 10^3 (0.0-1.0); MONOCYTES % (AUTO) 7 % (0-12); NEUTROPHILS # (AUTO) 8.3 X 10^3 (1.8-7.8); NEUTROPHILS % (AUTO) 78 % (42-75); PLATELET COUNT 230 10^3/uL (130-400); RED CELL DISTRIBUTION WIDTH 12.4 % (10.0-14.5); WHITE BLOOD COUNT 10.7 10^3/uL (4.3-11.0)
[2018-02-23 12:46] LABS: ALANINE AMINOTRANSFERASE 25 U/L (0-55); ALBUMIN 3.9 GM/DL (3.2-4.5); ALKALINE PHOSPHATASE 62 U/L (40-136); BILIRUBIN,TOTAL 0.8 MG/DL (0.1-1.0); BUN/CREATININE RATIO 21; CALCIUM 9.3 MG/DL (8.5-10.1); CARBON DIOXIDE 28 MMOL/L (21-32); CHLORIDE 103 MMOL/L (98-107); CHOLESTEROL 211 MG/DL (< 200); CREATININE SERUM 0.76 MG/DL (0.60-1.30); GFR ESTIMATED > 60; GLUCOSE 98 MG/DL (70-105); HDL CHOLESTEROL 47 MG/DL (40-60); POTASSIUM 4.6 MMOL/L (3.6-5.0); SODIUM 138 MMOL/L (135-145); TOTAL PROTEIN 7.1 GM/DL (6.4-8.2); TRIGLYCERIDES 128 MG/DL (<150); VLDL CHOLESTEROL 26 MG/DL (5-40)
== END ==
LOC: LAB 12:03
PROVIDERS: ATTEND Nurse Practitioner Family
DX: R30.0 Dysuria (principal); I10 Essential (primary) hypertension; E78.5 Hyperlipidemia, unspecified; R73.09 Other abnormal glucose
CPT/HCPCS: 36415; 80053; 80061; 83036; 84443; 85025; 87088; 87186

== ENCOUNTER → 2018-03-13 | Outpatient (CLI) | payer OTHER ==
[2018-03-13] MEDS: CATHETER FLUSH 10 ML SYR IV PRN (11:29)
[2018-03-13] MEDS: NS 250 ML (IVPB) BAG IV ONE (12:06)
[2018-03-13] MEDS: IOHEXOL 350 MG/ML 100 ML (OMNIPAQUE 350) VIAL IV ONE (12:06)
[2018-03-13] MEDS: BARIUM SUSPENSION 2.1% (VANILLA SILQ) 450 ML PO ONE (12:07)
--- NOTE | 2018-03-13 13:03 | Diagnostic Imaging Report ---
PROCEDURE: CT chest and abdomen with contrast. TECHNIQUE: Multiple contiguous axial images were obtained through the chest and abdomen after the administration of intravenous contrast. INDICATION: Small cell carcinoma, lower thoracic pain. FINDINGS: The previous CT chest and abdomen exam of 10/02/2015 noted stable 6 mm left lower lobe pulmonary nodule. That finding is again evident on this study and does not appear to have changed significantly (image 39/92). The lungs are otherwise generally clear. There is no other nodule identified, and there is no sign of failure, pneumonia, or pleural effusion. The heart size is within normal limits and stable when compared to the prior study. The aorta is not abnormally dilated, and there is no sign of a dissection. There is no defect within the pulmonary arteries to indicate a pulmonary embolus. There is no mediastinal or hilar adenopathy. The low-density nodules within the thyroid gland seen on the previous study are again visualized and seem similar in appearance. There is no obvious breast mass. As noted on the prior exam, there does appear to be thickening of the skin over the right breast, however. This finding seems similar to the previous study. The liver is homogeneous and not enlarged. As noted on the prior study, the gallbladder is surgically absent. The vena cava filter seen on the prior study is also again visualized and seems stable in position. The spleen, pancreas, adrenals, kidneys, aorta, and inferior vena cava show no sign of an acute abnormality. The stomach is filled with oral contrast and consequently difficult to assess. The small retro-umbilical hernia seen previously is again evident and essentially no different. There is no incarceration or obstruction of the bowel by the hernia. The bone windows show no sign of a fracture or of a destructive lesion. The prior study did note a 9 mm sclerotic focus in the posterior elements of L3. That finding is no different on this exam. The left-sided Port-A-Cath seen previously does not appear to have changed significantly. IMPRESSION: The overall appearance of the chest and abdomen is stable when compared to the prior exam. There is still no evidence for metastatic disease related to the patient's diagnosis of small cell carcinoma. There is no acute abnormality identified either. Dictated by: Dictated on workstation # [id number]
--- NOTE | 2018-03-13 17:45 | Diagnostic Imaging Report ---
INDICATION: History of right breast cancer. TECHNIQUE: Patient received 27.0 mCi technetium 99m MDP intravenously and whole body planar imaging was then performed 3 hours following injection. FINDINGS: Activity is accumulating within the left neck port. There is an arthritic pattern of uptake involving the knees and the shoulders. There is no foci of abnormal accumulation in the axial or appendicular skeleton felt to be suggestive of the scintigraphic evidence for bony metastasis. IMPRESSION: No findings suggestive of bone scan evidence for osseous metastasis. Dictated by: Dictated on workstation # [id number]
== END ==
LOC: RAD 11:14
PROVIDERS: ATTEND Internal Medicine Hematology & Oncology
DX: C7A.8 Other malignant neuroendocrine tumors (principal); C80.1 Malignant (primary) neoplasm, unspecified; D68.59 Other primary thrombophilia; M54.6 Pain in thoracic spine; Z85.3 Personal history of malignant neoplasm of breast
CPT/HCPCS: 71260; 74160; 78306

== ENCOUNTER 2018-04-23 12:12 | Outpatient (RCR) | payer OTHER ==
[2018-02-19 16:06] LABS: INR 3.3 (0.8-1.4); PROTHROMBIN TIME PATIENT 33.5 SEC (12.2-14.7)
[2018-03-12 14:08] LABS: BASOPHILS % (AUTO) 0 % (0-10); EOSINOPHILS # (AUTO) 0.2 10^3/uL (0.0-0.3); EOSINOPHILS % (AUTO) 3 % (0-10); HEMATOCRIT 41 % (35-52); HEMOGLOBIN 14.3 G/DL (11.5-16.0); LYMPHOCYTES # (AUTO) 1.8 X 10^3 (1.0-4.0); LYMPHOCYTES % (AUTO) 26 % (12-44); MEAN CORPUSCULAR HEMOGLOBIN 31 PG (25-34); MEAN CORPUSCULAR HGB CONC 35 G/DL (32-36); MEAN CORPUSCULAR VOLUME 89 FL (80-99); MEAN PLATELET VOLUME 9.9 FL (7.4-10.4); MONOCYTES # (AUTO) 0.5 X 10^3 (0.0-1.0); MONOCYTES % (AUTO) 7 % (0-12); NEUTROPHILS # (AUTO) 4.4 X 10^3 (1.8-7.8); NEUTROPHILS % (AUTO) 65 % (42-75); PLATELET COUNT 268 10^3/uL (130-400); RED BLOOD COUNT 4.57 10^6/uL (4.35-5.85); RED CELL DISTRIBUTION WIDTH 12.6 % (10.0-14.5); WHITE BLOOD COUNT 6.9 10^3/uL (4.3-11.0)
[2018-03-12 14:28] LABS: INR 3.9 (0.8-1.4); PROTHROMBIN TIME PATIENT 37.5 SEC (12.2-14.7)
[2018-03-12 14:37] LABS: ALANINE AMINOTRANSFERASE 26 U/L (0-55); ALBUMIN 3.8 GM/DL (3.2-4.5); ALKALINE PHOSPHATASE 59 U/L (40-136); BILIRUBIN,TOTAL 0.5 MG/DL (0.1-1.0); BUN/CREATININE RATIO 21; CARBON DIOXIDE 25 MMOL/L (21-32); CHLORIDE 106 MMOL/L (98-107); CREATININE SERUM 0.77 MG/DL (0.60-1.30); GFR ESTIMATED > 60; GLUCOSE 122 MG/DL (70-105); POTASSIUM 3.9 MMOL/L (3.6-5.0); SODIUM 141 MMOL/L (135-145); TOTAL PROTEIN 7.1 GM/DL (6.4-8.2)
[2018-04-02 13:55] LABS: INR 2.5 (0.8-1.4); PROTHROMBIN TIME PATIENT 27.3 SEC (12.2-14.7)
[2018-04-23 12:50] LABS: INR 2.4 (0.8-1.4); PROTHROMBIN TIME PATIENT 26.5 SEC (12.2-14.7)
== END 2018-05-20 | disposition home or self-care (01) ==
LOC: ONC 12:12
PROVIDERS: ATTEND Internal Medicine Hematology & Oncology
DX: D68.59 Other primary thrombophilia (principal); Z79.01 Long term (current) use of anticoagulants; Z45.2 Encounter for adjustment and management of vascular access device
CPT/HCPCS: 36415; 36591; 80053; 85025; 85610; 96523; 99213

== ENCOUNTER → 2018-06-16 | Outpatient (CLI) | payer OTHER ==
[2018-06-16 14:37] LABS: BUN/CREATININE RATIO 23; CALCIUM 9.4 MG/DL (8.5-10.1); CARBON DIOXIDE 22 MMOL/L (21-32); CHLORIDE 105 MMOL/L (98-107); GFR ESTIMATED > 60; GLUCOSE 119 MG/DL (70-105); SODIUM 138 MMOL/L (135-145)
--- NOTE | 2018-06-17 21:43 | Physician Query-Final Dx ---
LISSET VALERO 06/17/18 2143: Clinic Account Progress/Dx Physician Query: Please give diagnosis Please provide diagnosis, sign or symptom for pre-procedure lab (BMP) Date of Service Jun 16, 2018 at 13:27 ESTEFANY ADKINS DO 07/01/18 1727: Clinic Account Progress/Dx DIAGNOSIS: Diagnosis Can I ask why I have to provide a diagnosis for an outpatient lab that was sent down with a diagnosis? LISSET VALERO Jun 17, 2018 21:43 ESTEFANY ADKINS DO Jul 01, 2018 17:27
== END ==
LOC: LAB 13:27
PROVIDERS: ATTEND Obstetrics & Gynecology
DX: Z01.812 Encounter for preprocedural laboratory examination (principal)
CPT/HCPCS: 36415; 80048

== ENCOUNTER 2018-07-17 13:23 | Outpatient (RCR) | payer OTHER ==
[2018-05-27 13:41] LABS: INR 2.3 (0.8-1.4); PROTHROMBIN TIME PATIENT 25.7 SEC (12.2-14.7)
[2018-06-16 14:31] LABS: INR 2.5 (0.8-1.4); PROTHROMBIN TIME PATIENT 26.8 SEC (12.2-14.7)
[2018-07-17 14:02] LABS: INR 3.4 (0.8-1.4); PROTHROMBIN TIME PATIENT 34.8 SEC (12.2-14.7)
== END 2018-08-24 14:07 | disposition home or self-care (01) ==
LOC: ONC 13:23
PROVIDERS: ATTEND Internal Medicine Hematology & Oncology
DX: D68.59 Other primary thrombophilia (principal); Z79.01 Long term (current) use of anticoagulants
CPT/HCPCS: 36591; 85610

== ENCOUNTER → 2018-08-24 | Outpatient (CLI) | payer OTHER ==
[2018-08-24 14:59] LABS: ALANINE AMINOTRANSFERASE 21 U/L (0-55); ALBUMIN 3.8 GM/DL (3.2-4.5); ALKALINE PHOSPHATASE 61 U/L (40-136); BILIRUBIN,TOTAL 0.4 MG/DL (0.1-1.0); BUN/CREATININE RATIO 22; CALCIUM 8.9 MG/DL (8.5-10.1); CARBON DIOXIDE 23 MMOL/L (21-32); CHLORIDE 106 MMOL/L (98-107); CREATININE SERUM 0.79 MG/DL (0.60-1.30); GFR ESTIMATED > 60; GLUCOSE 155 MG/DL (70-105); POTASSIUM 4.1 MMOL/L (3.6-5.0); SODIUM 138 MMOL/L (135-145); TOTAL PROTEIN 7.2 GM/DL (6.4-8.2)
--- NOTE | 2018-08-26 12:16 | Physician Query-Final Dx ---
VENUS CLEMENTE 08/26/18 1216: Clinic Account Progress/Dx Physician Query: Please specify the location of the pts abd pain thank you Date of Service Aug 24, 2018 at 14:12 LAINEY HIGGINBOTHAM MD 09/02/18 1146: Clinic Account Progress/Dx DIAGNOSIS: Diagnosis RIGHT AND LEFT LOWER QUADRANT VENUS CLEMENTE Aug 26, 2018 12:16 LAINEY HIGGINBOTHAM MD Sep 02, 2018 11:46
== END ==
LOC: LAB 14:12
PROVIDERS: ATTEND Family Medicine
DX: R10.31 Right lower quadrant pain (principal); R10.32 Left lower quadrant pain; Z79.899 Other long term (current) drug therapy
CPT/HCPCS: 36415; 80053

== ENCOUNTER → 2018-08-27 | Outpatient (CLI) | payer OTHER ==
--- NOTE | 2018-08-27 16:44 | Diagnostic Imaging Report ---
INDICATION: Back pain, hematuria. Supine and upright abdominal films are obtained. Comparison made with 07/05/2016. FINDINGS: Upright view shows no evidence of free air. The abdominal bowel gas pattern is unremarkable. There is moderate stool throughout the colon. There are surgical clips in the right upper quadrant. There is an IVC filter in place which appears unchanged compared to the previous study. IMPRESSION: No sign of free air or bowel obstruction. Postoperative findings as described above. Dictated by: Dictated on workstation # [id number]
== END ==
LOC: RAD 14:59
PROVIDERS: ATTEND Nurse Practitioner Family
DX: N39.0 Urinary tract infection, site not specified (principal); Z98.890 Other specified postprocedural states
CPT/HCPCS: 74019

== ENCOUNTER → 2018-09-17 | Outpatient (CLI) | payer OTHER ==
--- NOTE | 2018-09-17 09:41 | Diagnostic Imaging Report ---
PROCEDURE: CT abdomen and pelvis without contrast. TECHNIQUE: Multiple contiguous axial images were obtained through the abdomen and pelvis without the use of intravenous contrast. INDICATION: Hematuria and mid and upper back pain. COMPARISON: Comparison is made with CT abdomen from 03/13/[address] pelvis from 06/17/2018. FINDINGS: The lung bases are clear. No discrete liver mass is identified. The gallbladder is surgically absent. No biliary duct dilatation is seen. The pancreas and spleen are unremarkable. No adrenal mass is detected. No renal calculi or hydronephrosis is seen. There is a filter within the IVC. Aorta is nonaneurysmal. Patient previously had a duodenal diverticulum at the junction of the second and third portion of the duodenum. Small and large bowel loops are normal caliber. No obstruction is seen. There is no ascites. No central retroperitoneal or mesenteric lymphadenopathy is seen. No definite iliac or inguinal lymphadenopathy is detected. IMPRESSION: Essentially unremarkable noncontrast CT of the abdomen and pelvis. No acute abnormality is detected. No urinary tract calculi or obstruction is identified. Dictated by: Dictated on workstation # [id number]
== END ==
LOC: RAD 08:44
PROVIDERS: ATTEND Urology
DX: R31.9 Hematuria, unspecified (principal)
CPT/HCPCS: 74176

== ENCOUNTER → 2018-09-28 | Outpatient (CLI) | payer OTHER ==
--- NOTE | 2018-09-28 20:51 | Diagnostic Imaging Report ---
EXAM: Ultrasound of the right breast. INDICATION: Breast cancer FINDINGS: The diagnostic mammogram performed prior to this study failed to show any sign of recurrent malignancy. On the previous bilateral breast ultrasound exam of 10/06/2017, there was a stable cystic lesion in the 9 o'clock position of the right breast. This measured approximately 0.5 x 1.0 CM. That finding is again evident on this study and essentially no different in size or appearance. This lesion is now estimated to be approximately 0.8 x 0.7 CM. There were no solid masses identified. IMPRESSION: The cystic lesion in the 9 o'clock position of the right breast, seen previously, appears stable. Most likely this is a benign process. There is no solid mass to suggest malignancy. ACR BI-RADS Category 1: Negative. Dictated by: Dictated on workstation # [id number]
--- NOTE | 2018-09-28 21:37 | Diagnostic Imaging Report ---
EXAM: Bilateral diagnostic mammogram with 3-D tomosynthesis and CAD. INDICATION: Carcinoma of the right breast. COMPARISON: 10/06/2017, 10/17/2016 and 01/22/2016. At this time, there are no complaints. FINDINGS: And there are scattered fibroglandular densities in both breasts which could obscure a lesion. Overall, there does not appear to have been any significant change since the prior exam. There is no primary or secondary sign of malignancy noted. There is thickening of the skin over the right breast. This would be consistent with the patient's history of prior radiation therapy. The stereotactic clip in the midportion of the right breast seen previously is again evident and no different. IMPRESSION: 1. There is no evidence for malignancy. 2. Reportedly, ultrasound of the right breast is pending for further evaluation. ACR BI-RADS Category 0: Incomplete. (Needs additional imaging evaluation). Result letter will be mailed to the patient. Note: At least 10% of breast cancer is not imaged by mammography. Dictated by: Dictated on workstation # [id number]
== END ==
LOC: RAD 12:39
PROVIDERS: ATTEND Nurse Practitioner Adult Health
DX: C50.111 Malignant neoplasm of central portion of right female breast (principal)
CPT/HCPCS: 76641; 77066

== ENCOUNTER → 2018-10-30 | Outpatient (CLI) | payer OTHER ==
[2018-10-30 11:07] LABS: ALANINE AMINOTRANSFERASE 19 U/L (0-55); ALBUMIN 3.7 GM/DL (3.2-4.5); ALKALINE PHOSPHATASE 66 U/L (40-136); BILIRUBIN,TOTAL 0.6 MG/DL (0.1-1.0); BUN/CREATININE RATIO 19; CALCIUM 9.3 MG/DL (8.5-10.1); CARBON DIOXIDE 23 MMOL/L (21-32); CHLORIDE 107 MMOL/L (98-107); CHOLESTEROL 234 MG/DL (< 200); CREATININE SERUM 0.81 MG/DL (0.60-1.30); GFR ESTIMATED > 60; GLUCOSE 100 MG/DL (70-105); HDL CHOLESTEROL 46 MG/DL (40-60); POTASSIUM 4.4 MMOL/L (3.6-5.0); SODIUM 138 MMOL/L (135-145); TOTAL PROTEIN 7.2 GM/DL (6.4-8.2); TRIGLYCERIDES 104 MG/DL (<150); VLDL CHOLESTEROL 21 MG/DL (5-40)
== END ==
LOC: LAB 10:30
PROVIDERS: ATTEND Internal Medicine Interventional Cardiology
DX: E78.5 Hyperlipidemia, unspecified (principal); Z78.9 Other specified health status
CPT/HCPCS: 36415; 80053; 80061

== ENCOUNTER 2018-11-11 13:16 | Outpatient (RCR) | payer OTHER ==
[2018-08-24 14:50] LABS: INR 2.2 (0.8-1.4); PROTHROMBIN TIME PATIENT 24.8 SEC (12.2-14.7)
[2018-09-30 09:15] LABS: BASOPHILS % (AUTO) 0 % (0-10); EOSINOPHILS # (AUTO) 0.2 10^3/uL (0.0-0.3); EOSINOPHILS % (AUTO) 2 % (0-10); HEMATOCRIT 41 % (35-52); HEMOGLOBIN 13.9 G/DL (11.5-16.0); LYMPHOCYTES # (AUTO) 1.4 X 10^3 (1.0-4.0); LYMPHOCYTES % (AUTO) 20 % (12-44); MEAN CORPUSCULAR HEMOGLOBIN 31 PG (25-34); MEAN CORPUSCULAR HGB CONC 34 G/DL (32-36); MEAN CORPUSCULAR VOLUME 89 FL (80-99); MEAN PLATELET VOLUME 9.5 FL (7.4-10.4); MONOCYTES # (AUTO) 0.8 X 10^3 (0.0-1.0); MONOCYTES % (AUTO) 11 % (0-12); NEUTROPHILS # (AUTO) 4.7 X 10^3 (1.8-7.8); NEUTROPHILS % (AUTO) 67 % (42-75); PLATELET COUNT 276 10^3/uL (130-400); RED CELL DISTRIBUTION WIDTH 12.6 % (10.0-14.5)
[2018-09-30 09:29] LABS: INR 2.8 (0.8-1.4); PROTHROMBIN TIME PATIENT 29.8 SEC (12.2-14.7)
[2018-09-30 09:39] LABS: ALANINE AMINOTRANSFERASE 25 U/L (0-55); ALBUMIN 3.7 GM/DL (3.2-4.5); ALKALINE PHOSPHATASE 59 U/L (40-136); BILIRUBIN,TOTAL 0.6 MG/DL (0.1-1.0); BUN/CREATININE RATIO 18; CALCIUM 9.1 MG/DL (8.5-10.1); CARBON DIOXIDE 24 MMOL/L (21-32); CHLORIDE 105 MMOL/L (98-107); CREATININE SERUM 0.78 MG/DL (0.60-1.30); GFR ESTIMATED > 60; GLUCOSE 101 MG/DL (70-105); POTASSIUM 4.1 MMOL/L (3.6-5.0); SODIUM 139 MMOL/L (135-145)
[2018-10-30 11:19] LABS: INR 2.4 (0.8-1.4)
== END 2018-11-22 | disposition home or self-care (01) ==
LOC: ONC 13:16
PROVIDERS: ATTEND Internal Medicine Hematology & Oncology
DX: D68.59 Other primary thrombophilia (principal); Z79.01 Long term (current) use of anticoagulants
CPT/HCPCS: 36591; 80053; 83615; 85025; 85610

== ENCOUNTER → 2019-02-11 | Outpatient (CLI) | payer OTHER ==
--- NOTE | 2019-02-11 15:48 | Diagnostic Imaging Report ---
PROCEDURE: US Thyroid. TECHNIQUE: Multiple real-time grayscale images were obtained of the thyroid in various projections. INDICATION: Goiter. COMPARISON: Comparison is made with prior thyroid ultrasound from 10/28/2013. FINDINGS: Right lobe of the thyroid measures 3.9 x 1.6 x 1.4 cm and the left lobe measures 4.5 x 2.8 x 2.0 cm. Isthmus is 5 mm in thickness. Several nodules are identified in the left lobe of the thyroid. The largest is in the lower pole measuring 1.4 x 1.5 x 2.1 cm. This appears to be similar to prior exam. This nodule appeared fairly vague on prior study. There is also nodule in the lower pole of right lobe measuring approximately 0.9 x 0.6 x 1.3 cm. This was approximately 2 cm on prior exam. Additional subcentimeter nodules are seen. IMPRESSION: Bilateral thyroid nodules overall similar to perhaps slightly improved when compared with prior thyroid ultrasound from 10/28/2013. Dictated by: Dictated on workstation # [id number]
== END ==
LOC: RAD 12:31
PROVIDERS: ATTEND Family Medicine
DX: E04.2 Nontoxic multinodular goiter (principal)
CPT/HCPCS: 76536

== ENCOUNTER 2019-03-12 09:45 | Outpatient (RCR) | payer OTHER ==
[2019-01-01 11:38] LABS: INR 2.8 (0.8-1.4)
[2019-02-01 14:53] LABS: INR 2.4 (0.8-1.4); PROTHROMBIN TIME PATIENT 27.5 SEC (12.2-14.7)
[2019-03-12 10:53] LABS: INR 1.8 (0.8-1.4)
== END 2019-04-01 | disposition home or self-care (01) ==
LOC: ONC 09:45
PROVIDERS: ATTEND Internal Medicine Hematology & Oncology
DX: D68.59 Other primary thrombophilia (principal); Z79.01 Long term (current) use of anticoagulants; Z45.2 Encounter for adjustment and management of vascular access device
CPT/HCPCS: 36415; 36591; 85610; 96523

== ENCOUNTER → 2019-04-23 | Outpatient (CLI) | payer OTHER ==
--- NOTE | 2019-04-23 13:32 | Diagnostic Imaging Report ---
PROCEDURE: CT chest and abdomen with contrast. TECHNIQUE: Multiple contiguous axial images were obtained through the chest and abdomen after the administration of intravenous contrast. Auto Exposure Controls were utilized during the CT exam to meet ALARA standards for radiation dose reduction. INDICATION: Breast cancer and back pain. CT THORAX: Comparison is made to study of 03/13/2018. FINDINGS: There is prominence of the left lobe of the thyroid gland with subcentimeter nodular foci without significant change from previous examination. 0.6 cm subpleural nodule in the left lower lobe is again noted without significant change. This is likely related to scarring. There is no evidence of new mass or infiltrate in the lungs. There is no significant pleural or pericardial fluid. No pathologic adenopathy is identified. IMPRESSION: Stable CT imaging of the chest. Mildly nodular left lobe thyroid gland is stable and likely benign. There is probable minimal nodular scarring in the left lower lobe. CT ABDOMEN AND PELVIS: FINDINGS: No focal hepatic or splenic lesion is identified. There does appear to be a small hiatal hernia. Gallbladder is surgically absent. There is probable diverticulum at the level of the second portion of the duodenum. No pancreatic, adrenal gland, renal, or splenic abnormality is seen. There is an inferior vena caval filter in place without evidence of free fluid in the abdomen. No pathologic abdominal calcification is seen. IMPRESSION: Stable CT scan of the abdomen and pelvis without evidence of acute abnormality or metastatic disease. Dictated by: Dictated on workstation # [id number]
== END ==
LOC: RAD 12:30
PROVIDERS: ATTEND Nurse Practitioner Adult Health
DX: M54.9 Dorsalgia, unspecified (principal); E04.1 Nontoxic single thyroid nodule; Z85.3 Personal history of malignant neoplasm of breast
CPT/HCPCS: 71260; 74160

== ENCOUNTER → 2019-04-23 | Outpatient (CLI) | payer OTHER ==
[~2019-04-23] MED LIST changes: +CATHETER FLUSH 10 ML SYR IV PRN
--- NOTE | 2019-04-23 15:48 | Diagnostic Imaging Report ---
Indication: Breast cancer Whole body bone scan 25.1 mCi of technetium 99m MDP was given intravenously. Whole body bone scan was obtained after a three-hour delay. Comparison with bone scan dated 03/13/2018. There is activity in both kidneys. There is normal uptake in the skeletal system with no areas suspicious for metastatic disease. Impression: Stable negative whole body bone scan Dictated by: Dictated on workstation # [id number]
== END ==
LOC: CARD 11:50
PROVIDERS: ATTEND Nurse Practitioner Adult Health
DX: M54.9 Dorsalgia, unspecified (principal); Z85.3 Personal history of malignant neoplasm of breast
CPT/HCPCS: 78306

== ENCOUNTER 2019-05-28 11:35 | Outpatient (RCR) | payer OTHER ==
[2019-04-07 14:41] LABS: BASOPHILS % (AUTO) 0 % (0-10); EOSINOPHILS # (AUTO) 0.2 10^3/uL (0.0-0.3); EOSINOPHILS % (AUTO) 3 % (0-10); HEMATOCRIT 42 % (35-52); HEMOGLOBIN 13.9 G/DL (11.5-16.0); LYMPHOCYTES # (AUTO) 1.8 X 10^3 (1.0-4.0); LYMPHOCYTES % (AUTO) 22 % (12-44); MEAN CORPUSCULAR HEMOGLOBIN 30 PG (25-34); MEAN CORPUSCULAR HGB CONC 33 G/DL (32-36); MEAN CORPUSCULAR VOLUME 90 FL (80-99); MEAN PLATELET VOLUME 10.3 FL (7.4-10.4); MONOCYTES # (AUTO) 0.7 X 10^3 (0.0-1.0); MONOCYTES % (AUTO) 8 % (0-12); NEUTROPHILS # (AUTO) 5.3 X 10^3 (1.8-7.8); NEUTROPHILS % (AUTO) 67 % (42-75); PLATELET COUNT 247 10^3/uL (130-400); RED CELL DISTRIBUTION WIDTH 12.5 % (10.0-14.5)
[2019-04-07 14:53] LABS: PROTHROMBIN TIME PATIENT 32.1 SEC (12.2-14.7)
[2019-04-07 15:01] LABS: ALANINE AMINOTRANSFERASE 20 U/L (0-55); ALBUMIN 3.7 GM/DL (3.2-4.5); ALKALINE PHOSPHATASE 74 U/L (40-136); BILIRUBIN,TOTAL 0.3 MG/DL (0.1-1.0); BUN/CREATININE RATIO 20; CALCIUM 9.2 MG/DL (8.5-10.1); CARBON DIOXIDE 24 MMOL/L (21-32); CHLORIDE 107 MMOL/L (98-107); CREATININE SERUM 0.81 MG/DL (0.60-1.30); GFR ESTIMATED > 60; GLUCOSE 99 MG/DL (70-105); POTASSIUM 4.1 MMOL/L (3.6-5.0); SODIUM 140 MMOL/L (135-145); TOTAL PROTEIN 7.2 GM/DL (6.4-8.2)
[~2019-05-28 11:35] MED LIST changes: -CATHETER FLUSH 10 ML SYR IV PRN
[2019-05-28 12:06] LABS: INR 3.1 (0.8-1.4); PROTHROMBIN TIME PATIENT 33.6 SEC (12.2-14.7)
== END 2019-07-06 | disposition home or self-care (01) ==
LOC: ONC 11:35
PROVIDERS: ATTEND Internal Medicine Hematology & Oncology
DX: D68.59 Other primary thrombophilia (principal); Z79.01 Long term (current) use of anticoagulants
CPT/HCPCS: 36591; 80053; 83615; 85025; 85610; 99213

== ENCOUNTER → 2019-07-21 | Outpatient (CLI) | payer OTHER ==
[2019-07-21 15:51] LABS: BASOPHILS % (AUTO) 0 % (0-10); EOSINOPHILS # (AUTO) 0.3 10^3/uL (0.0-0.3); EOSINOPHILS % (AUTO) 3 % (0-10); HEMATOCRIT 42 % (35-52); HEMOGLOBIN 14.3 G/DL (11.5-16.0); LYMPHOCYTES # (AUTO) 1.7 X 10^3 (1.0-4.0); LYMPHOCYTES % (AUTO) 23 % (12-44); MEAN CORPUSCULAR HEMOGLOBIN 30 PG (25-34); MEAN CORPUSCULAR HGB CONC 34 G/DL (32-36); MEAN CORPUSCULAR VOLUME 89 FL (80-99); MONOCYTES # (AUTO) 0.8 X 10^3 (0.0-1.0); MONOCYTES % (AUTO) 11 % (0-12); NEUTROPHILS # (AUTO) 4.9 X 10^3 (1.8-7.8); NEUTROPHILS % (AUTO) 64 % (42-75); PLATELET COUNT 254 10^3/uL (130-400); RED CELL DISTRIBUTION WIDTH 12.5 % (10.0-14.5); WHITE BLOOD COUNT 7.7 10^3/uL (4.3-11.0)
[2019-07-21 16:11] LABS: ALANINE AMINOTRANSFERASE 22 U/L (0-55); ALBUMIN 3.7 GM/DL (3.2-4.5); ALKALINE PHOSPHATASE 74 U/L (40-136); BILIRUBIN,TOTAL 0.3 MG/DL (0.1-1.0); BUN/CREATININE RATIO 24; CALCIUM 9.2 MG/DL (8.5-10.1); CARBON DIOXIDE 27 MMOL/L (21-32); CHLORIDE 104 MMOL/L (98-107); CREATININE SERUM 0.84 MG/DL (0.60-1.30); GFR ESTIMATED > 60; GLUCOSE 93 MG/DL (70-105); POTASSIUM 4.4 MMOL/L (3.6-5.0); SODIUM 139 MMOL/L (135-145); TOTAL PROTEIN 7.4 GM/DL (6.4-8.2)
[2019-07-21 16:16] LABS: ERYTHROCYTE SEDIMENTATION RATE 18 MM/HR (0-30)
== END ==
LOC: LAB 15:34
PROVIDERS: ATTEND Family Medicine
DX: R53.83 Other fatigue (principal); R53.81 Other malaise; R21 Rash and other nonspecific skin eruption; R00.2 Palpitations; M25.50 Pain in unspecified joint
CPT/HCPCS: 36415; 80053; 85025; 85652; 86141

== ENCOUNTER → 2019-07-29 | Outpatient (CLI) | payer OTHER | LOC: LAB 13:12 | PROVIDERS: ATTEND Family Medicine | DX: M25.50 Pain in unspecified joint (principal); R53.83 Other fatigue; R21 Rash and other nonspecific skin eruption; R53.81 Other malaise; Z86.2 Personal history of diseases of the blood and blood-forming organs and certain disorders involving the immune mechanism | CPT/HCPCS: 36415; 86038; 86039; 86431 ==

== ENCOUNTER → 2019-09-15 | Outpatient (CLI) | payer OTHER ==
[2019-09-15 14:49] LABS: BILIRUBIN,URINE NEGATIVE (NEGATIVE); CLARITY,URINE SL CLOUDY; COLOR,URINE YELLOW; GLUCOSE, URINE (UA) NEGATIVE (NEGATIVE); KETONES,URINE NEGATIVE (NEGATIVE); LEUKOCYTE ESTERASE ,URINE TRACE (NEGATIVE); NITRITE,URINE NEGATIVE (NEGATIVE); PROTEIN,URINE NEGATIVE (NEGATIVE)
[2019-09-15 14:58] LABS: BACTERIA,URINE FEW /HPF; SQUAMOUS EPITHELIAL CELL,UR 0-2 /HPF; WBC,URINE >100 /HPF
== END ==
LOC: LAB 14:39
PROVIDERS: ATTEND Urology
DX: R32 Unspecified urinary incontinence (principal); R35.0 Frequency of micturition
CPT/HCPCS: 81000; 87077; 87088; 87186

== ENCOUNTER → 2019-09-29 | Outpatient (CLI) | payer OTHER ==
--- NOTE | 2019-09-29 10:37 | Diagnostic Imaging Report ---
INDICATION: Palpable abnormality. TECHNIQUE: Targeted ultrasound of the right breast was performed in the 8 o'clock position. This is the reported area of palpable abnormality. FINDINGS: At the 9 o'clock position of the right breast 5 cm from the nipple, there is a tiny cyst measuring 0.6 x 0.7 x 0.7 cm. No other discrete solid or cystic masses are appreciated. This is unchanged when compared to the prior examination. IMPRESSION: Stable benign-appearing cyst in the 9 o'clock position of the right breast. ACR BI-RADS Category 2: Benign findings. Dictated by: Dictated on workstation # [id number]
--- NOTE | 2019-09-29 11:16 | Diagnostic Imaging Report ---
INDICATION: Palpable abnormality in the right breast. COMPARISON: 09/28/2018, 10/06/2017, and 10/17/2016. TECHNIQUE: The current study was also evaluated with a Computer Aided Detection (CAD) system. 3D Tomographic imaging was also performed. FINDINGS: There are scattered fibroglandular densities bilaterally. There are a few benign type calcifications which are unchanged. There is no new dominant mass, spiculated lesion, or suspicious calcification identified. There is unchanged skin thickening on the right. The nipples and axillae are unremarkable. Ultrasound in the region of the palpable abnormality in the 9 o'clock position of the right breast was performed. This demonstrated a benign-appearing cyst. IMPRESSION: Benign findings. ACR BI-RADS Category 2: Benign findings. Result letter will be mailed to the patient. Note: At least 10% of breast cancer is not imaged by mammography. Dictated by: Dictated on workstation # [id number]
== END ==
LOC: RAD 09:13
PROVIDERS: ATTEND Nurse Practitioner Adult Health
DX: Z12.31 Encounter for screening mammogram for malignant neoplasm of breast (principal); N63.10 Unspecified lump in the right breast, unspecified quadrant; Z85.3 Personal history of malignant neoplasm of breast
CPT/HCPCS: 77066

== ENCOUNTER 2019-10-01 09:52 | Outpatient (RCR) | payer OTHER ==
[2019-07-09 10:52] LABS: PROTHROMBIN TIME PATIENT 32.9 SEC (12.2-14.7)
[2019-08-27 14:30] LABS: INR 2.9 (0.8-1.4); PROTHROMBIN TIME PATIENT 31.4 SEC (12.2-14.7)
[2019-09-24 13:46] LABS: BASOPHILS % (AUTO) 0 % (0-10); EOSINOPHILS # (AUTO) 0.2 10^3/uL (0.0-0.3); EOSINOPHILS % (AUTO) 2 % (0-10); HEMATOCRIT 41 % (35-52); LYMPHOCYTES # (AUTO) 2.1 X 10^3 (1.0-4.0); LYMPHOCYTES % (AUTO) 26 % (12-44); MEAN CORPUSCULAR HEMOGLOBIN 31 PG (25-34); MEAN CORPUSCULAR HGB CONC 34 G/DL (32-36); MEAN CORPUSCULAR VOLUME 90 FL (80-99); MEAN PLATELET VOLUME 10.1 FL (7.4-10.4); MONOCYTES # (AUTO) 0.8 X 10^3 (0.0-1.0); MONOCYTES % (AUTO) 10 % (0-12); NEUTROPHILS # (AUTO) 5.1 X 10^3 (1.8-7.8); NEUTROPHILS % (AUTO) 62 % (42-75); PLATELET COUNT 253 10^3/uL (130-400); RED CELL DISTRIBUTION WIDTH 12.8 % (10.0-14.5); WHITE BLOOD COUNT 8.2 10^3/uL (4.3-11.0)
[2019-09-24 13:57] LABS: INR 3.2 (0.8-1.4)
[2019-09-24 14:13] LABS: ALANINE AMINOTRANSFERASE 31 U/L (0-55); ALBUMIN 3.9 GM/DL (3.2-4.5); ALKALINE PHOSPHATASE 64 U/L (40-136); BILIRUBIN,TOTAL 0.4 MG/DL (0.1-1.0); BUN/CREATININE RATIO 26; CALCIUM 8.8 MG/DL (8.5-10.1); CARBON DIOXIDE 23 MMOL/L (21-32); CHLORIDE 103 MMOL/L (98-107); CREATININE SERUM 0.92 MG/DL (0.60-1.30); GFR ESTIMATED > 60; GLUCOSE 107 MG/DL (70-105); POTASSIUM 4.1 MMOL/L (3.6-5.0); SODIUM 137 MMOL/L (135-145)
[~2019-10-01 09:52] MED LIST changes: -GADOBUTROL 10 MMOL/10 ML (GADAVIST) VIAL IV ONE
== END 2019-10-07 | disposition home or self-care (01) ==
LOC: ONC 09:52
PROVIDERS: ATTEND Internal Medicine Hematology & Oncology
DX: D68.59 Other primary thrombophilia (principal); Z79.01 Long term (current) use of anticoagulants
CPT/HCPCS: 36591; 80053; 83615; 85025; 85610; 99213

== ENCOUNTER → 2019-10-01 | Outpatient (CLI) | payer OTHER ==
[~2019-10-01] MED LIST changes: +GADOBUTROL 10 MMOL/10 ML (GADAVIST) VIAL IV ONE
--- NOTE | 2019-10-01 09:37 | Diagnostic Imaging Report ---
PROCEDURE: MR angiography of the brain without the use of contrast. TECHNIQUE: 3D [id number]-[id number] non contrast enhanced MR angiography of the head was performed. A source data was reformatted into rotating MIP projections. INDICATION: Glaucoma, retinal vein occlusion of both right and left eyes. TECHNIQUE: Routine images of the intracranial venous circulation were obtained. 3-D reconstructed images were also performed. FINDINGS: The previous MRI brain exam of 06/15/2013 failed to show any sign of an acute intracranial abnormality. There is no mass lesion identified either. On this exam, there is no evidence for venous thrombosis. The sagittal sinus, straight sinus, and the transverse sinuses are widely patent. Because of their small size, the retinal veins could not be visualized, however. No other abnormalities identified. IMPRESSION: There is no evidence for thrombosis of the intracranial venous system. Dictated by: Dictated on workstation # [id number]
--- NOTE | 2019-10-01 09:44 | Diagnostic Imaging Report ---
EXAMINATION: MRI of the brain and orbits with and without contrast. INDICATION: Breast cancer. Retinal vein occlusion. TECHNIQUE: Multiple images utilizing both T1 and T2 weighted sequences were obtained. Additional images for administration of intravenous contrast were also obtained. Magnified images of the orbits in the axial, sagittal and coronal planes were also obtained both before and after the administration of intravenous contrast. FINDINGS: The previous MRI brain exam of 06/15/2013 failed to show any sign of an acute intracranial abnormality. There is no evidence for a mass lesion either. On the diffusion series of this exam there is no abnormal signal arising from the brain to indicate an area of acute ischemia. The images of the orbits show that the orbits are symmetrical. The globes, optic nerves and extraocular muscles are unremarkable for an acute abnormality. There is no abnormal enhancement of the orbital contents on the post contrast series. The optic chiasm is undisturbed. There is no other enhancement within the brain to indicate a neoplastic or infectious process. The ventricles are not abnormally dilated and similar in size to the prior exam. There is no abnormal signal arising from the brain on the FLAIR series to suggest demyelinating disease. The sella is not enlarged an expected carotid flow voids are evident bilaterally. The sinuses are generally clear. The seventh and eighth nerve complexes are unremarkable. IMPRESSION: 1. There is no evidence for an acute intracranial abnormality. There is no abnormal enhancement to indicate a neoplastic or infectious process either. 2. The orbits are symmetrical and appear to be within normal limits. Dictated by: Dictated on workstation # [id number]
== END ==
LOC: RAD 08:02
PROVIDERS: ATTEND Ophthalmology
DX: H34.8132 Central retinal vein occlusion, bilateral, stable (principal); C50.919 Malignant neoplasm of unspecified site of unspecified female breast; H40.9 Unspecified glaucoma; I67.1 Cerebral aneurysm, nonruptured; I77.0 Arteriovenous fistula, acquired; Z87.828 Personal history of other (healed) physical injury and trauma
CPT/HCPCS: 70544; 70553

== ENCOUNTER → 2019-10-04 | Outpatient (CLI) | payer OTHER ==
--- NOTE | 2019-10-04 12:00 | Diagnostic Imaging Report ---
CLINICAL INDICATION: Patient with bilateral carotid stenosis. COMPARISON: Ultrasound of the carotid arteries dated 02/13/2016. Exam: Real-time carotid Doppler duplex imaging is performed bilaterally. Peak systolic velocity, ICA/CCA peak systolic ratio, spectral analysis, and vascular morphology are studied. FINDINGS: ARTERY VELOCITY Right Left CCA 0.94 m/s 0.91 m/s ICA 0.71 m/s 0.65 m/s ECA 0.58 m/s 0.87 m/s ICA/CCA 0.76 0.71 VERT.ART Antegrade Antegrade There is mild bilateral carotid artery atherosclerotic disease. IMPRESSION: There is no grayscale or Doppler evidence of significant vascular stenosis. Dictated by: Dictated on workstation # [id number]
== END ==
LOC: RAD 11:01
PROVIDERS: ATTEND Internal Medicine Interventional Cardiology
DX: I65.23 Occlusion and stenosis of bilateral carotid arteries (principal)
CPT/HCPCS: 93880

== ENCOUNTER 2020-01-03 14:27 | Outpatient (RCR) | payer OTHER ==
[2019-11-10 13:42] LABS: INR 2.6 (0.8-1.4); PROTHROMBIN TIME PATIENT 29.3 SEC (12.2-14.7)
[2019-12-23 14:57] LABS: INR 4.8 (0.8-1.4)
[2019-12-23 14:59] LABS: PROTHROMBIN TIME PATIENT 47.3 SEC (12.2-14.7)
[2020-01-03 14:50] LABS: INR 3.1 (0.8-1.4); PROTHROMBIN TIME PATIENT 33.2 SEC (12.2-14.7)
[2020-01-03 16:07] LABS: BASOPHILS % (AUTO) 0 % (0-10); EOSINOPHILS # (AUTO) 0.2 10^3/uL (0.0-0.3); EOSINOPHILS % (AUTO) 2 % (0-10); HEMATOCRIT 41 % (35-52); HEMOGLOBIN 14.2 G/DL (11.5-16.0); LYMPHOCYTES # (AUTO) 1.8 X 10^3 (1.0-4.0); LYMPHOCYTES % (AUTO) 21 % (12-44); MEAN CORPUSCULAR HEMOGLOBIN 31 PG (25-34); MEAN CORPUSCULAR HGB CONC 35 G/DL (32-36); MEAN CORPUSCULAR VOLUME 89 FL (80-99); MEAN PLATELET VOLUME 9.9 FL (7.4-10.4); MONOCYTES # (AUTO) 0.9 X 10^3 (0.0-1.0); MONOCYTES % (AUTO) 10 % (0-12); NEUTROPHILS % (AUTO) 67 % (42-75); PLATELET COUNT 255 10^3/uL (130-400); WHITE BLOOD COUNT 8.8 10^3/uL (4.3-11.0)
== END 2020-02-08 | disposition home or self-care (01) ==
LOC: ONC 14:27
PROVIDERS: ATTEND Internal Medicine Hematology & Oncology
DX: D68.59 Other primary thrombophilia (principal); Z79.01 Long term (current) use of anticoagulants
CPT/HCPCS: 36591; 85025; 85610; 99213

== ENCOUNTER → 2020-01-03 | Outpatient (CLI) | payer OTHER ==
[~2020-01-03] MED LIST changes: -TRAM50TA2 PO; +TRM50T PO
[2020-01-03 14:38] LABS: BILIRUBIN,URINE NEGATIVE (NEGATIVE); CLARITY,URINE CLEAR; COLOR,URINE YELLOW; GLUCOSE, URINE (UA) NEGATIVE (NEGATIVE); KETONES,URINE NEGATIVE (NEGATIVE); LEUKOCYTE ESTERASE ,URINE NEGATIVE (NEGATIVE); NITRITE,URINE NEGATIVE (NEGATIVE); PROTEIN,URINE NEGATIVE (NEGATIVE)
[2020-01-03 14:58] LABS: BACTERIA,URINE TRACE /HPF; RBC,URINE 0-2 /HPF; SQUAMOUS EPITHELIAL CELL,UR 0-2 /HPF; WBC,URINE 0-2 /HPF
[2020-01-03 15:20] LABS: FREE T4 (FREE THYROXINE) 1.04 NG/DL (0.70-1.48)
== END ==
LOC: LAB 14:07
PROVIDERS: ATTEND Internal Medicine Rheumatology
DX: M79.10 Myalgia, unspecified site (principal); E04.9 Nontoxic goiter, unspecified; R31.9 Hematuria, unspecified
CPT/HCPCS: 36415; 81000; 82085; 82550; 82570; 84156; 84439; 84443

== ENCOUNTER → 2020-01-05 | Outpatient (CLI) | payer OTHER ==
--- NOTE | 2020-01-05 11:13 | Diagnostic Imaging Report ---
INDICATION: Cellulitis of the right breast for 2 weeks. Correlation is made with prior right breast ultrasound from 09/29/2019. Previously noted cyst at the 9:00 location, 5 cm from the nipple is again noted measuring approximate 9 mm x 8 mm x 5 mm compared with 8 mm x 6 mm x 8 mm. No other sonographic bodies are seen. No solid mass is identified. Right axilla is unremarkable. IMPRESSION: BI-RADS 3. Stable right breast cyst. No suspicious mammographic finding is seen. If patient's symptoms do not resolve, consideration could be given to performance of a diagnostic mammogram. Continued sonography followup right breast cyst recommended. ACR BI-RADS Category 3: Probably benign findings. Result letter will be mailed to the patient. Note: At least 10% of breast cancer is not imaged by mammography. Dictated by: Dictated on workstation # [id number]
== END ==
LOC: RAD 09:02
PROVIDERS: ATTEND Nurse Practitioner Adult Health
DX: N60.01 Solitary cyst of right breast (principal); Z85.3 Personal history of malignant neoplasm of breast

== ENCOUNTER → 2020-01-12 | Outpatient (CLI) | payer OTHER ==
[~2020-01-12] VITALS: Ht 177.8 cm; Wt 104.5 kg
[~2020-01-12] MED LIST changes: +LIDOCAINE 1% INJ 20 ML 20 ML VIAL INJ ONE
--- NOTE | 2020-01-12 10:47 | Diagnostic Imaging Report ---
INDICATION: Right breast cystic lesion. Patient presents for ultrasound guided biopsy. TECHNIQUE: The patient was brought to the procedure room and placed on the table in the supine position. Ultrasound imaging of the right breast was performed to evaluate for an appropriate entry site. The right breast was then prepped and draped in the usual sterile fashion. A total of 4 passes were made into the cystic appearing lesion at the 9 o'clock location of the right breast 5 cm from the nipple utilizing a 14-gauge Achieve needle. Core biopsies were obtained. A marker clip was then deployed. The lesion was barely visible by the end of the procedure, likely owing to the cystic nature. Hemostasis was obtained using manual compression. The patient tolerated the procedure well and was sent for a post procedure mammogram in satisfactory condition. IMPRESSION: Successful ultrasound-guided core biopsy of the cystic lesion at the 9 o'clock location of the right breast 5 cm from the nipple. The Pathology results are currently pending. Dictated by: Dictated on workstation # [id number]
--- NOTE | 2020-01-12 10:59 | Diagnostic Imaging Report ---
INDICATION: Right breast cystic lesion. Patient status post ultrasound-guided biopsy. Unilateral right 2-D cc and ML mammography was performed. There is scattered fibroglandular tissue right breast. There are postbiopsy changes in the right breast. There is a marker clip in the outer aspect of the right breast at mid depth, status post biopsy. IMPRESSION: Post biopsy changes right breast with marker clip in place in the outer right breast. Dictated by: Dictated on workstation # [id number]
== END ==
LOC: RAD 08:53
PROVIDERS: ATTEND Nurse Practitioner Adult Health
DX: N60.01 Solitary cyst of right breast (principal); N60.31 Fibrosclerosis of right breast
CPT/HCPCS: 19083

== ENCOUNTER 2020-02-13 13:38 | Emergency (ER) | payer OTHER ==
[~2020-02-13] VITALS: Ht 177.8 cm; Wt 106.8 kg
[~2020-02-13 13:38] MED LIST changes: -LIDOCAINE 1% INJ 20 ML 20 ML VIAL INJ ONE
[2020-02-13 14:23] LABS: BASOPHILS % (AUTO) 0 % (0-10); EOSINOPHILS % (AUTO) 0 % (0-10); HEMATOCRIT 41 % (35-52); HEMOGLOBIN 13.9 G/DL (11.5-16.0); LYMPHOCYTES # (AUTO) 1.2 X 10^3 (1.0-4.0); LYMPHOCYTES % (AUTO) 13 % (12-44); MEAN CORPUSCULAR HEMOGLOBIN 31 PG (25-34); MEAN CORPUSCULAR HGB CONC 34 G/DL (32-36); MEAN CORPUSCULAR VOLUME 90 FL (80-99); MEAN PLATELET VOLUME 9.8 FL (7.4-10.4); MONOCYTES # (AUTO) 0.4 X 10^3 (0.0-1.0); MONOCYTES % (AUTO) 5 % (0-12); NEUTROPHILS % (AUTO) 83 % (42-75); PLATELET COUNT 270 10^3/uL (130-400); RED CELL DISTRIBUTION WIDTH 13.1 % (10.0-14.5); WHITE BLOOD COUNT 9.7 10^3/uL (4.3-11.0)
[2020-02-13 14:39] LABS: INR 3.3 (0.8-1.4); PROTHROMBIN TIME PATIENT 34.8 SEC (12.2-14.7)
[2020-02-13 14:42] LABS: ALBUMIN 3.8 GM/DL (3.2-4.5)
[2020-02-13 14:43] LABS: CHLORIDE 106 MMOL/L (98-107); POTASSIUM 4.4 MMOL/L (3.6-5.0); SODIUM 138 MMOL/L (135-145)
[2020-02-13 14:45] LABS: GLUCOSE 128 MG/DL (70-105); TOTAL PROTEIN 7.4 GM/DL (6.4-8.2)
[2020-02-13 14:46] LABS: CARBON DIOXIDE 22 MMOL/L (21-32)
[2020-02-13 14:47] LABS: BILIRUBIN,TOTAL 0.4 MG/DL (0.1-1.0)
[2020-02-13 14:48] LABS: ALKALINE PHOSPHATASE 61 U/L (40-136)
[2020-02-13 14:49] LABS: GFR ESTIMATED > 60
[2020-02-13 14:50] LABS: BUN/CREATININE RATIO 20
[2020-02-13 14:51] LABS: MAGNESIUM 2.1 MG/DL (1.6-2.4)
[2020-02-13 14:52] LABS: ALANINE AMINOTRANSFERASE 25 U/L (0-55)
--- NOTE | 2020-02-13 15:15 | Diagnostic Imaging Report ---
INDICATION: Asthma. Shortness of breath. Breast CA. FINDINGS: Portable chest. Port-A-Cath on the left appears in good position. Tip overlies the superior venocaval shadow. The lungs are well aerated. No infiltrates are demonstrated. Heart is not enlarged. No pneumothorax or pleural effusion. No bony abnormalities. IMPRESSION: Port-A-Cath is present with no acute abnormalities demonstrated. Dictated by: Dictated on workstation # [id number]
--- NOTE | 2020-02-13 15:24 | ED Respiratory ---
General Chief Complaint: Respiratory Problems Stated Complaint: HX ASTHMA/SOB Nursing Triage Note: Pt amb to room #10 with c/o SOA. Pt reports increase in severity of symptoms for approx 3-4wks. Pt reports she began prednisone prescription on 02/10/20 et has been utilizing rescue IH. Pt denies fever. Pt reports hx asthma. Initial SPO2 98% via RA with no resp. distress noted. When asked if pt has been experiencing cough, pt states, "when I wheeze." A&OX4. Source: patient, old records Exam Limitations: no limitations History of Present Illness Date Seen by Provider: Feb 13, 2020 Time Seen by Provider: 14:00 Initial Comments This 59-year-old woman presents to the emergency room with primary complaint of shortness of breath for the past 3-4 weeks. She does have a history of asthma and reports her inhaler is less effective presently. She was placed on a prednisone taper by Dr. Perez's office. Today was day 4 of treatment on the steroid. Vital signs are unremarkable during evaluation. She has been afebrile. She reports some persistent chest pain seems atypical in nature. It is not worse with exertion. She had cardiac catheterization performed about 10 years ago in [place] which reportedly was negative. She notes some increase in cough when she is wheezing. Cough is occasionally productive. She has history of breast cancer and has been in remission for 6 years. She recently had some breast cellulitis which prompted breast imaging and biopsy. Pathology was negative for malignancy. She has history of DVT and takes warfarin. She is due for an INR check. Patient notes she got extremely winded today when walking briskly. She works as a hospital nurse. Allergies and Home Medications Allergies Coded Allergies: NSAIDS (Non-Steroidal Anti-Inflamma (Verified Allergy, Severe, ANAPHYLAXIS, 03/03/17) Sulfa (Sulfonamide Antibiotics) (Unverified Allergy, Intermediate, SWELLING, 03/03/17) amoxicillin (Unverified Allergy, Intermediate, HIVES, 03/03/17) Iodinated Contrast- Oral and IV Dye (Unverified Allergy, Unknown, 05/30/14) atorvastatin (Unverified Allergy, Unknown, 12/19/14) Uncoded Allergies: DIFINITY DYE (Allergy, Unknown, 05/30/14) Home Medications Alprazolam 0.5 Mg Tablet, 0.5 MG PO HS, (Reported) Azithromycin 250 Mg Tablet, 250 MG PO DAILY Prescribed by: SRUTHI LEWIS on 02/13/201734 Buspirone HCl 15 Mg Tablet, 15 MG PO HS, (Reported) Cholecalciferol (Vitamin D3) 5,000 Unit Tablet, 5,000 UNIT PO DAILY, (Reported) Famotidine 20 Mg Tablet, 20 MG PO BID, (Reported) Gabapentin 300 Mg Capsule, 300 MG PO HS, (Reported) Loratadine 10 Mg Capsule, 10 MG PO HS, (Reported) Metoprolol Succinate 50 Mg Tab.sr.24h, 50 MG PO HS, (Reported) Omeprazole Magnesium 20 Mg Tablet.dr, 20 MG PO DAILY PRN for HEARTBURN, (Reported) Prednisone 10 Mg Tab.ds.pk, 10 MG PO DAILY Take 6 tabs(60mg)daily,decrease by 1 tab(10mg)every other day. Prescribed by: SRUTHI LEWIS on 02/13/201734 Warfarin Sodium 4 Mg Tablet, 4 MG PO HS, (Reported) [Magnesium/Calcium/Zi] , 1 TAB PO HS, (Reported) [Vitamin B12] , 1,000 MCG IM MONTHLY, (Reported) Patient Home Medication List Home Medication List Reviewed: Yes Review of Systems Review of Systems Constitutional: no symptoms reported EENTM: no symptoms reported Respiratory: see HPI Cardiovascular: see HPI Gastrointestinal: no symptoms reported Genitourinary: no symptoms reported : No Musculoskeletal: no symptoms reported Skin: no symptoms reported Psychiatric/Neurological: No Symptoms Reported Hematologic/Lymphatic: No Symptoms Reported Immunological/Allergic: no symptoms reported Past Mhjwgun-Eloujt-Vdvcmp Hx Patient Social History Alcohol Use: Denies Use Recreational Drug Use: No Smoking Status: Never a Smoker 2nd Hand Smoke Exposure: No Recent Foreign Travel: No Contact w/Someone Who Travel: No Recent Infectious Disease Expo: No Recent Hopitalizations: No Immunizations Up To Date Date of Influenza Vaccine: Jul 20, 2016 Seasonal Allergies Seasonal Allergies: Yes Past Medical History Surgeries: Yes (PORT VENA CAVA FILTER, SIMOID colectomy, port) Abdominal, Adenoidectomy, Appendectomy, Section, Gallbladder, Hysterectomy, Tonsillectomy Respiratory: Yes Asthma Cardiac: Yes Deep Vein Thrombosis, Irregular Heartbeat Neurological: No Reproductive Disorders: No CAREER INFORMATION SPECIALIST History: Hysterectomy Gastrointestinal: Yes Diverticulosis Musculoskeletal: No Endocrine: Yes (nodules on thyroid) Cancer: Yes Breast Psychosocial: No Integumentary: Yes (SCC) 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 0.0oz. 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, no motor/sensory deficits, alert, normal mood/affect, oriented x 3 Skin: normal color, warm/dry Progress/Results/Core Measures Suspected Sepsis Recent Fever Within 48 Hours: No Infection Criteria Present: Suspected New Infection New/Unexplained Altered Menta: No Sepsis Screen: No Definite Risk SIRS Temperature: Pulse: 85 Respiratory Rate: 22 Laboratory Tests 02/13/20 14:15: White Blood Count 9.7 Blood Pressure 144 /76 Mean: 98 Laboratory Tests 02/13/20 14:15: Creatinine 0.90, INR Comment 3.3H, Platelet Count 270, Total Bilirubin 0.4 Results/Orders Lab Results Laboratory Tests Test 02/13/20 14:15 Range/Units White Blood Count 9.7 4.3-11.0 10^3/uL Red Blood Count 4.55 4.35-5.85 10^6/uL Hemoglobin 13.9 11.5-16.0 G/DL Hematocrit 41 35-52 % Mean Corpuscular Volume 90 80-99 FL Mean Corpuscular Hemoglobin 31 25-34 PG Mean Corpuscular Hemoglobin Concent 34 32-36 G/DL Red Cell Distribution Width 13.1 10.0-14.5 % Platelet Count 270 130-400 10^3/uL Mean Platelet Volume 9.8 7.4-10.4 FL Neutrophils (%) (Auto) 83 H 42-75 % Lymphocytes (%) (Auto) 13 12-44 % Monocytes (%) (Auto) 5 0-12 % Eosinophils (%) (Auto) 0 0-10 % Basophils (%) (Auto) 0 0-10 % Neutrophils # (Auto) 8.0 H 1.8-7.8 X 10^3 Lymphocytes # (Auto) 1.2 1.0-4.0 X 10^3 Monocytes # (Auto) 0.4 0.0-1.0 X 10^3 Eosinophils # (Auto) 0.0 0.0-0.3 10^3/uL Basophils # (Auto) 0.0 0.0-0.1 10^3/uL Prothrombin Time 34.8 H 12.2-14.7 SEC INR Comment 3.3 H 0.8-1.4 Activated Partial Thromboplast Time 60 H 24-35 SEC D-Dimer < 0.27 0.00-0.49 UG/ML Sodium Level 138 135-145 MMOL/L Potassium Level 4.4 3.6-5.0 MMOL/L Chloride Level 106 98-107 MMOL/L Carbon Dioxide Level 22 21-32 MMOL/L Anion Gap 10 5-14 MMOL/L Blood Urea Nitrogen 18 7-18 MG/DL Creatinine 0.90 0.60-1.30 MG/DL Estimat Glomerular Filtration Rate > 60 BUN/Creatinine Ratio 20 Glucose Level 128 H 70-105 MG/DL Calcium Level 9.0 8.5-10.1 MG/DL Corrected Calcium 9.2 8.5-10.1 MG/DL Magnesium Level 2.1 1.6-2.4 MG/DL Total Bilirubin 0.4 0.1-1.0 MG/DL Aspartate Amino Transf (AST/SGOT) 20 5-34 U/L Alanine Aminotransferase (ALT/SGPT) 25 0-55 U/L Alkaline Phosphatase 61 40-136 U/L Lactate Dehydrogenase 205 125-220 U/L Myoglobin 61.2 10.0-92.0 NG/ML Troponin I < 0.028 <0.028 NG/ML C-Reactive Protein High Sensitivity 0.11 0.00-0.50 MG/DL B-Type Natriuretic Peptide 40.1 <100.0 PG/ML Total Protein 7.4 6.4-8.2 GM/DL Albumin 3.8 3.2-4.5 GM/DL Procalcitonin 0.02 <0.10 NG/ML My Orders Orders - SRUTHI HOUSTON MD Cbc With Automated Diff (02/13/20 14:09) Magnesium (02/13/20 14:09) Chest 1 View, Ap/Pa Only (02/13/20 14:09) Ekg Tracing (02/13/20 14:09) Comprehensive Metabolic Panel (02/13/20 14:09) Myoglobin Serum (02/13/20 14:09) Protime With Inr (02/13/20 14:09) Partial Thromboplastin Time (02/13/20 14:09) O2 (02/13/20 14:09) Monitor-Rhythm Ecg Trace Only (02/13/20 14:09) Lipid Panel (02/14/20 06:00) Ed Iv/Invasive Line Start (02/13/20 14:09) BNP (02/13/20 14:09) Fibrin Degradation Products (02/13/20 14:09) Troponin I (02/13/20 14:09) Hs C Reactive Protein (02/13/20 14:09) Procalcitonin (Pct) (02/13/20 14:20) LDH (02/13/20 14:20) Albuterol/Ipra Inhalation Soln (Duoneb I (02/13/20 15:45) Svn Small Volume Nebulizer (02/13/20 15:39) Albuterol/Ipra Inhalation Soln (Duoneb I (02/13/20 15:45) Svn Small Volume Nebulizer (02/13/20 15:39) Ct Chest W (02/13/20 15:39) Iohexol Injection (Omnipaque 350 Mg/Ml 1 (02/13/20 16:00) Received Contrast (Hold Metformin- Contr (02/13/20 16:00) Sodium Chloride Flush (Catheter Flush Sy (02/13/20 16:00) Ns (Ivpb) (Sodium Chloride 0.9% Ivpb Bag (02/13/20 16:00) Lidocaine 2% Viscous 15 Ml (Xylocaine Vi (02/13/20 17:00) Antacid Suspension (Mylanta Suspension (02/13/20 17:00) Azithromycin Tablet (Zithromax Tablet) (02/13/20 17:15) Coronavirus Sars-Cov-2 So 2018 (02/13/20 17:33) Medications Given in ED Current Medications Medications Dose Ordered Sig/Ted Route Start Time Stop Time Status Last Admin Dose Admin Al Hydrox/Mg Hydrox/Simethicone 30 ml ONCE ONCE PO 02/13/20 17:00 02/13/20 17:01 DC 02/13/20 17:10 30 ML Albuterol/ Ipratropium 3 ml ONCE ONCE INH 02/13/20 15:45 02/13/20 15:46 DC 02/13/20 16:26 3 ML Albuterol/ Ipratropium 3 ml ONCE ONCE INH 02/13/20 15:45 02/13/20 15:46 DC 02/13/20 16:26 3 ML Azithromycin 500 mg ONCE ONCE PO 02/13/20 17:15 02/13/20 17:16 DC 02/13/20 17:14 500 MG Iohexol 100 ml ONCE ONCE IV 02/13/20 16:00 02/13/20 16:01 DC 02/13/20 16:02 75 ML Lidocaine HCl 15 ml ONCE ONCE PO 02/13/20 17:00 02/13/20 17:01 DC 02/13/20 17:10 15 ML Sodium Chloride 10 ml NEEDED PRN IV 02/13/20 16:00 02/13/20 16:03 10 ML Sodium Chloride 100 ml ONCE ONCE IV 02/13/20 16:00 02/13/20 16:01 DC 02/13/20 16:02 80 ML Vital Signs/I&O 02/13/20 13:46 Temp 37.0 Pulse 85 Resp 22 B/P (MAP) 144/76 (98) Pulse Ox 98 O2 Delivery Room Air Capillary Refill : Less Than 3 Seconds Blood Pressure Mean: 98 Progress Note #1: Time: 16:08 Progress Note Initial workup has been absolutely unremarkable. Case was reviewed with Dr. Perez. He recommended doing CT scan to rule out any atypical pathology or rec urrence of neoplasm. He also agrees with trial of DuoNeb therapy. If no alternative pathology is identified, he advocates for starting azithromycin and restarting a high-dose prednisone taper that tapers down every other day rather than every day. Progress Note #2: Time: 17:[address] was negative for acute pathology. Hiatal hernia was noted. Patient received 2 DuoNeb treatments which did help her breathing some better also made her very jittery. GI cocktail reduced her chest discomfort some. Although her imaging and lab profile do not fit the typical pattern of a COVID-19 patient, she was tested due to the implications of her exposures as a hospital worker. The first dose of azithromycin was given to her in the emergency room. Per Dr. Perez's recommendations her prednisone taper was restarted with a longer course and azithromycin was prescribed. The infectious disease officer was notified of this PUI. ECG Initial ECG Impression Date: Feb 13, 2020 Initial ECG Impression Time: 14:20 Initial ECG Rate: 79 Initial ECG Rhythm: Normal Sinus Initial ECG Intervals: Normal Initial ECG Impression: Normal Comment Normal sinus rhythm with no ST elevation or depression. No abnormal intervals or axis deviation. Diagnostic Imaging Diagonstic Imaging: Xray Plain Films/CT/US/NM/MRI: chest Comments Chest x-ray viewed by me and report reviewed. See report below: NAME: PARISHMIKHAIL DIAZ [employer] REC#: [id number] PT STATUS: REG ER : 1960 PHYSICIAN: SRUTHI HOUSTON MD ADMIT DATE: 02/13/20/ER Draft Date of Exam:02/13/20 CHEST 1 VIEW, AP/PA ONLY INDICATION: Asthma. Shortness of breath. Breast CA. FINDINGS: Portable chest. Port-A-Cath on the left appears in good position. Tip overlies the superior venocaval shadow. The lungs are well aerated. No infiltrates are demonstrated. Heart is not enlarged. No pneumothorax or pleural effusion. No bony abnormalities. IMPRESSION: Port-A-Cath is present with no acute abnormalities demonstrated. Dictated on workstation # [id number] Dict: 02/13/20 1456 Trans: 02/13/20 1515 [id number] Interpreted by: JACQUIE GILLIAM MD Diagonstic Imaging: CT Plain Films/CT/US/NM/MRI: chest Comments CT chest viewed by me and report reviewed. See report below: NAME: MIKHAIL PARISH [facility] REC#: [id number] PT STATUS: REG ER : 1960 PHYSICIAN: SRUTHI HOUSTON MD ADMIT DATE: 02/13/20/ER Draft Date of Exam:02/13/20 CT CHEST W PROCEDURE: CT chest with contrast only. TECHNIQUE: Multiple contiguous axial images were obtained through the chest after administration of intravenous contrast. Auto Exposure Controls were utilized during the CT exam to meet ALARA standards for radiation dose reduction. INDICATION: Breast cancer, right chest wall cellulitis. COMPARISON: 04/23/2019. FINDINGS: The breasts bilaterally extend ventral and lateral and outside the field of view of this exam. The partially visualized right breast shows medial skin thickening which can be on a postradiation basis in the appropriate scenario as well as reflect a process such as cellulitis. No identifiable gas/fluid collection or foreign body. No abscess visualized. The muscular and bony chest wall is intact. No pulmonary consolidation. No suspicious pulmonary nodule. No thoracic lymphadenopathy. Vascular catheter is in the lower SVC. No evidence for failure. This patient has a chronic tiny hiatal hernia. The upper abdomen demonstrates a previous cholecystectomy with intact adrenal glands and no acute appearing pathology. IMPRESSION: The partially visualized right breast shows some medial skin thickening but no parenchymal inflammatory changes in the visualized mass or fluid collection. The chest wall, itself, appears intact and there is no acute cardiopulmonary abnormality in this patient with small hiatal hernia. No evidence for metastatic disease in the chest. Dictated on workstation # [id number] Dict: 02/13/20 1611 Trans: 02/13/20 1616 [facility] [id number] Interpreted by: MARYCHUY CAZARES Departure Impression Primary Impression: Asthma exacerbation Qualified Codes: J45.901 - Unspecified asthma with (acute) exacerbation Additional Impressions: Shortness of breath Atypical chest pain Hiatal hernia Disposition: HOME, SELF-CARE Condition: Improved Departure-Patient Inst. Decision time for Depature: 17:32 Referrals: LAINEY HIGGINBOTHAM MD (PCP/Family) Primary Care Physician Patient Instructions: Asthma, Adult (DC), COVID19 Add. Discharge Instructions: Continue your inhaler as prescribed. Complete your prednisone steroid taper as prescribed as well as your azithromycin. Do not return to work and isolate at home until the results of your jimenes virus testing are known. Increase your omeprazole to twice daily dosing while you are on prednisone. Follow-up with Dr. Perez and your primary care provider later this week. Call or return to care if you have worsening symptoms. All discharge instructions reviewed with patient and/or family. Voiced understanding. Scripts Azithromycin (Azithromycin) 250 Mg Tablet 250 MG PO DAILY, #4 TAB 0 Refills Prov: SRUTHI HOUSTON MD 02/13/20 Prednisone (Prednisone) 10 Mg Tab.ds.pk 10 MG PO DAILY, #42 EA Take 6 tabs(60mg)daily,decrease by 1 tab(10mg)every other day. Prov: SRUTHI HOUSTON MD 02/13/20 Copy Copies To 1: LISA PEREZ DO Copies To 2: LAINEY HIGGINBOTHAM MD, JOSHUA T MD Feb 13, 2020 15:24
[2020-02-13] MEDS ORDERED: RT-ALBUTEROL/IPRATROPIUM 3 ML (DUONEB) VIAL INH ONE ×2 (15:45)
[2020-02-13] MEDS ORDERED: CATHETER FLUSH 10 ML SYR IV PRN (16:00)
[2020-02-13] MEDS ORDERED: HOLD METFORMIN - RECEIVED CONTRAST 20 ML VIAL IV SCH (16:00)
[2020-02-13] MEDS ORDERED: NS 100 ML (IVPB) BAG IV ONE (16:00)
[2020-02-13] MEDS ORDERED: IOHEXOL 350 MG/ML 100 ML (OMNIPAQUE 350) VIAL IV ONE (16:00)
--- NOTE | 2020-02-13 16:18 | Diagnostic Imaging Report ---
PROCEDURE: CT chest with contrast only. TECHNIQUE: Multiple contiguous axial images were obtained through the chest after administration of intravenous contrast. Auto Exposure Controls were utilized during the CT exam to meet ALARA standards for radiation dose reduction. INDICATION: Breast cancer, right chest wall cellulitis. COMPARISON: 04/23/2019. FINDINGS: The breasts bilaterally extend ventral and lateral and outside the field of view of this exam. The partially visualized right breast shows medial skin thickening which can be on a postradiation basis in the appropriate scenario as well as reflect a process such as cellulitis. No identifiable gas/fluid collection or foreign body. No abscess visualized. The muscular and bony chest wall is intact. No pulmonary consolidation. No suspicious pulmonary nodule. No thoracic lymphadenopathy. Vascular catheter is in the lower SVC. No evidence for failure. This patient has a chronic tiny hiatal hernia. The upper abdomen demonstrates a previous cholecystectomy with intact adrenal glands and no acute appearing pathology. IMPRESSION: The partially visualized right breast shows some medial skin thickening but no parenchymal inflammatory changes in the visualized mass or fluid collection. The chest wall, itself, appears intact and there is no acute cardiopulmonary abnormality in this patient with small hiatal hernia. No evidence for metastatic disease in the chest. Dictated by: Dictated on workstation # [id number]
[2020-02-13] MEDS ORDERED: LIDOCAINE 2% VISCOUS 15 ML UDC PO ONE (17:00)
[2020-02-13] MEDS ORDERED: ANTACID SUSP 30 ML UDC (MYLANTA) PO ONE (17:00)
[2020-02-13] MEDS ORDERED: AZITHROMYCIN 250 MG TAB (ZITHROMAX) PO ONE (17:15)
--- NOTE | 2020-02-13 17:30 | NUR ---
PCCT walked COVID-19 swab to lab. COVID-19 testing form faxed to [facility] ([phone]).
[2020-02-13] MEDS ORDERED: PRED10TA22 PO (17:35)
[2020-02-13] MEDS ORDERED: AZIT250T12 PO (17:35)
[2020-02-13 17:44] VITALS: BP 108/82
== END 2020-02-13 17:44 | disposition home or self-care (01) ==
LOC: EDUNIT# 13:38 → ER 13:41
DX: J45.901 Unspecified asthma with (acute) exacerbation (principal); R07.89 Other chest pain; K44.9 Diaphragmatic hernia without obstruction or gangrene; Z86.711 Personal history of pulmonary embolism; Z79.01 Long term (current) use of anticoagulants; Z85.3 Personal history of malignant neoplasm of breast; Z88.6 Allergy status to analgesic agent; Z88.2 Allergy status to sulfonamides; Z88.1 Allergy status to other antibiotic agents; Z91.041 Radiographic dye allergy status; Z88.8 Allergy status to other drugs, medicaments and biological substances
CPT/HCPCS: 36415; 71045; 71260; 80053; 83615; 83735; 83874; 83880; 84145; 84484; 85025; 85379; 85610; 85730; 86141; 87635; 93005; 93041

== ENCOUNTER 2020-05-16 11:33 | Outpatient (RCR) | payer OTHER ==
[2020-03-08 15:41] LABS: BASOPHILS % (AUTO) 0 % (0-10); EOSINOPHILS # (AUTO) 0.2 10^3/uL (0.0-0.3); EOSINOPHILS % (AUTO) 3 % (0-10); HEMATOCRIT 41 % (35-52); HEMOGLOBIN 14.1 G/DL (11.5-16.0); LYMPHOCYTES # (AUTO) 1.7 X 10^3 (1.0-4.0); LYMPHOCYTES % (AUTO) 25 % (12-44); MEAN CORPUSCULAR HEMOGLOBIN 31 PG (25-34); MEAN CORPUSCULAR HGB CONC 34 G/DL (32-36); MEAN CORPUSCULAR VOLUME 90 FL (80-99); MEAN PLATELET VOLUME 9.5 FL (7.4-10.4); MONOCYTES # (AUTO) 1.1 X 10^3 (0.0-1.0); MONOCYTES % (AUTO) 15 % (0-12); NEUTROPHILS # (AUTO) 3.9 X 10^3 (1.8-7.8); NEUTROPHILS % (AUTO) 57 % (42-75); PLATELET COUNT 247 10^3/uL (130-400); RED CELL DISTRIBUTION WIDTH 12.9 % (10.0-14.5); WHITE BLOOD COUNT 6.9 10^3/uL (4.3-11.0)
[2020-03-08 16:04] LABS: ALANINE AMINOTRANSFERASE 28 U/L (0-55); ALBUMIN 3.7 GM/DL (3.2-4.5); ALKALINE PHOSPHATASE 66 U/L (40-136); BILIRUBIN,TOTAL 0.4 MG/DL (0.1-1.0); BUN/CREATININE RATIO 20; CARBON DIOXIDE 25 MMOL/L (21-32); CHLORIDE 105 MMOL/L (98-107); CREATININE SERUM 0.79 MG/DL (0.60-1.30); GFR ESTIMATED > 60; GLUCOSE 90 MG/DL (70-105); POTASSIUM 4.2 MMOL/L (3.6-5.0); SODIUM 138 MMOL/L (135-145); TOTAL PROTEIN 7.1 GM/DL (6.4-8.2)
[2020-03-21 15:28] LABS: INR 2.2 (0.8-1.4); PROTHROMBIN TIME PATIENT 25.3 SEC (12.2-14.7)
[~2020-05-16 11:33] MED LIST changes: +AZIT250T12 PO; +PRED10TA22 PO
[2020-05-16 12:00] LABS: INR 2.5 (0.8-1.4); PROTHROMBIN TIME PATIENT 27.7 SEC (12.2-14.7)
== END 2020-06-06 | disposition home or self-care (01) ==
LOC: ONC 11:33
PROVIDERS: ATTEND Internal Medicine Hematology & Oncology
DX: D68.59 Other primary thrombophilia (principal); G47.33 Obstructive sleep apnea (adult) (pediatric); E78.00 Pure hypercholesterolemia, unspecified; Z85.3 Personal history of malignant neoplasm of breast; Z85.89 Personal history of malignant neoplasm of other organs and systems; Z79.01 Long term (current) use of anticoagulants; Z92.21 Personal history of antineoplastic chemotherapy; Z92.3 Personal history of irradiation
CPT/HCPCS: 80053; 83615; 85025; G0463; 36591; 85610

== ENCOUNTER → 2020-05-25 | Outpatient (CLI) | payer OTHER ==
[~2020-05-25] MED LIST changes: +GADOBUTROL 10 MMOL/10 ML (GADAVIST) VIAL IV ONE
[2020-05-25 09:35] LABS: BUN/CREATININE RATIO 23; CREATININE SERUM 0.84 MG/DL (0.60-1.30); GFR ESTIMATED > 60
--- NOTE | 2020-05-25 12:13 | Diagnostic Imaging Report ---
PROCEDURE: MR imaging of the brain with and without contrast. Dedicated sequences are performed of the orbits. TECHNIQUE: Multiplanar, multisequence MR imaging of the brain was performed with and without contrast. INDICATION: Vision loss. COMPARISON: 10/01/2019. FINDINGS: No acute ischemia, mass, or hemorrhage. No abnormal enhancement is seen. The ventricles, cortical sulci, and basilar cisterns are symmetric and unremarkable. The sellar and suprasellar regions have a normal appearance. The major intracranial flow voids are intact. Lens implant is noted on the left. The globes are intact bilaterally. The extraocular muscles are symmetric and unremarkable. The post septal fat is preserved without evidence of inflammation or mass. No masses are seen at the orbital apex. The bilateral cavernous sinuses have a normal MR appearance. No abnormal enhancement is seen within the globes and orbits. The bilateral optic nerves have an unremarkable appearance. The optic chiasm is normal. The brainstem and posterior fossa are unremarkable. The paranasal sinuses and mastoid air cells demonstrate normal signal characteristics. The scalp and calvarium have a normal appearance. IMPRESSION: 1. No acute ischemia, mass, or hemorrhage. No abnormal enhancement. 2. No acute abnormalities in the globes and orbits. No abnormal enhancement or inflammatory changes. Dictated by: Dictated on workstation # [id number]
== END ==
LOC: RAD 09:10
PROVIDERS: ATTEND Ophthalmology
DX: H53.483 Generalized contraction of visual field, bilateral (principal); R51 Headache; H47.212 Primary optic atrophy, left eye
CPT/HCPCS: 36415; 70553; 82565; 84520

== ENCOUNTER → 2020-08-31 | Outpatient (CLI) | payer OTHER ==
[~2020-08-31] MED LIST changes: -GADOBUTROL 10 MMOL/10 ML (GADAVIST) VIAL IV ONE
--- NOTE | 2020-08-31 11:24 | Diagnostic Imaging Report ---
CLINICAL INDICATION: Patient with neck pain and spinal stenosis. EXAM: MRI of the cervical spine performed without IV contrast. Sequences include sagittal T2, sagittal T1, sagittal T2 fat-sat, and axial T2. COMPARISON: CT scan of the cervical spine without contrast dated 12/17/2017. CT scan the neck soft tissue dated 10/22/2013. FINDINGS: There is a stable roughly 9 mm low T2/low T1 signal rounded area involving the right posterior aspect of the C7 vertebra. This correlates to a nonspecific sclerotic area on the comparison CT scan of the neck soft tissue dated 10/22/2013 and does not represent an active aggressive lesion. There is no acute cervical spine fracture or dislocation. There are hypertrophic spurs seen throughout the cervical spine and facet arthropathy. Limited visualization of the posterior fossa shows no significant abnormality. Cervical cord has normal cord caliber with no abnormal signal. There is no significant neck soft tissue abnormality. C1-C2: There are degenerative spurs involving the atlantoodontoid interval anteriorly. There is no significant central canal narrowing. C2-C3: Again seen diffuse disc bulge with small posterior disc spurs and right uncinate spur. There is mild right neural foramen narrowing. There is no significant left neural foramen narrowing. There is mild central canal narrowing. There is minimal ligamentum flavum buckling. C3-C4: There is diffuse disc bulge with small bilateral uncinate spurs. There is mild loss of disc space height. There is mild ligamentum flavum buckling and [id number]-[id number] bilateral facet arthropathy. There is no significant left neural foramen narrowing. There is mild right neural foramen narrowing. There is mild central canal stenosis. C4-C5: There is a diffuse disc bulge and mild left facet arthropathy and moderate right facet arthropathy/hypertrophy. There is wiyk-rk-vmjqthyj right neural foramen narrowing and no significant left neural foramen narrowing. There is no significant central canal stenosis. C5-C6: There is a diffuse disc bulge and moderate loss of disc space height. There are hypertrophic disc spurs seen posteriorly and bilateral uncinate spurs. There is severe left neural foramen narrowing and moderate right neural foramen narrowing. There is severe central canal stenosis. Patient was noted to have significant posterior disc spurs at this level on the comparison cervical CT scan. C6-C7: There is mild diffuse disc bulge, mrwi-sj-goimubez left facet arthropathy and mild right facet arthropathy. There are right-sided uncinate spurs. There is severe right neural foramen narrowing due to disc spurs which has progressed. There is no significant left neural foramen narrowing. There is [id number] central canal stenosis. C7-T1: There is no significant central spinal canal or neural foramen narrowing. There is a partially visualized 14 mm increased T2 signal nodule involving the left thyroid lobe which is best seen on the sagittal T2 fat-sat sequence. IMPRESSION: 1: There is multilevel cervical spine degenerative disc disease which is worse at C5-C6 level. 2: There is a C5-C6 diffuse disc bulge with hypertrophic posterior disc spurs and bilateral uncinate spurs. There is bilateral facet arthropathy. There is severe central canal stenosis and severe left neural foramen narrowing and moderate right neural foramen narrowing. 3: The remainder of the cervical spine degenerative disease as described above. 4: There is a partially visualized 14 mm increased T2 signal nodule involving the left thyroid lobe. Nonemergent thyroid ultrasound would better evaluate. Dictated by: Dictated on workstation # [id number]
== END ==
LOC: RAD 09:54
PROVIDERS: ATTEND Family Medicine
DX: M47.812 Spondylosis without myelopathy or radiculopathy, cervical region (principal); M50.222 Other cervical disc displacement at C5-C6 level; M50.322 Other cervical disc degeneration at C5-C6 level; M48.02 Spinal stenosis, cervical region; E04.1 Nontoxic single thyroid nodule
CPT/HCPCS: 72141

== ENCOUNTER → 2020-09-12 | Outpatient (CLI) | payer OTHER ==
--- NOTE | 2020-09-12 15:31 | Diagnostic Imaging Report ---
INDICATION: Spinal stenosis. Neck pain. COMPARISON: None FINDINGS: Frontal and lateral radiographic views of the cervical spine were obtained. Lateral views with flexion and extension are also provided. Evaluation and alignment of the cervical spine shows slight grade 1 retrolisthesis at the C5-C6 level. This shows no significant change with flexion or extension. There is no evidence of jumped facets. Vertebral body heights are maintained. There is no acute fracture. Mild multilevel degenerative changes are identified and consistent with intervertebral disc height loss with anterior and posterior osteophyte formations. Surrounding soft tissue structures are unremarkable. Included portions of the lung apices are clear. Left-sided subclavian Port-A-Cath is noted. IMPRESSION: 1. Slight retrolisthesis at C5-C6 with mild multilevel degenerative changes. 2. No acute fracture or dislocation of the cervical spine. Dictated by: Dictated on workstation # [id number]
== END ==
LOC: RAD 14:40
PROVIDERS: ATTEND Neurological Surgery
DX: M48.02 Spinal stenosis, cervical region (principal); M47.812 Spondylosis without myelopathy or radiculopathy, cervical region; Z95.828 Presence of other vascular implants and grafts
CPT/HCPCS: 72050

== ENCOUNTER 2020-09-25 10:10 | Outpatient (RCR) | payer OTHER ==
[2020-07-06 10:32] LABS: INR 2.8 (0.8-1.4); PROTHROMBIN TIME PATIENT 29.7 SEC (12.2-14.7)
[2020-08-03 10:55] LABS: INR 3.4 (0.8-1.4); PROTHROMBIN TIME PATIENT 34.3 SEC (12.2-14.7)
[2020-08-18 10:10] LABS: BASOPHILS % (AUTO) 0 % (0-10); EOSINOPHILS # (AUTO) 0.2 10^3/uL (0.0-0.3); EOSINOPHILS % (AUTO) 3 % (0-10); HEMATOCRIT 41 % (35-52); HEMOGLOBIN 13.6 g/dL (11.5-16.0); LYMPHOCYTES # (AUTO) 2.1 10^3/uL (1.0-4.0); LYMPHOCYTES % (AUTO) 30 % (12-44); MEAN CORPUSCULAR HEMOGLOBIN 30 pg (25-34); MEAN CORPUSCULAR HGB CONC 34 g/dL (32-36); MEAN CORPUSCULAR VOLUME 91 fL (80-99); MEAN PLATELET VOLUME 10.4 fL (9.0-12.2); MONOCYTES # (AUTO) 0.7 10^3/uL (0.0-1.0); MONOCYTES % (AUTO) 11 % (0-12); NEUTROPHILS # (AUTO) 3.8 10^3/uL (1.8-7.8); NEUTROPHILS % (AUTO) 56 % (42-75); PLATELET COUNT 220 10^3/uL (130-400); WHITE BLOOD COUNT 6.7 10^3/uL (4.3-11.0)
[2020-08-18 10:15] LABS: INR 2.6 (0.8-1.4); PROTHROMBIN TIME PATIENT 28.6 SEC (12.2-14.7)
[2020-08-18 10:21] LABS: ALANINE AMINOTRANSFERASE 25 U/L (0-55); ALBUMIN 3.7 GM/DL (3.2-4.5); ALKALINE PHOSPHATASE 65 U/L (40-136); BILIRUBIN,TOTAL 0.5 MG/DL (0.1-1.0); BUN/CREATININE RATIO 20; CALCIUM 8.9 MG/DL (8.5-10.1); CARBON DIOXIDE 23 MMOL/L (21-32); CHLORIDE 107 MMOL/L (98-107); CREATININE SERUM 0.85 MG/DL (0.60-1.30); GFR ESTIMATED > 60; GLUCOSE 111 MG/DL (70-105); POTASSIUM 4.4 MMOL/L (3.6-5.0); SODIUM 139 MMOL/L (135-145)
[2020-09-25 10:47] LABS: INR 2.5 (0.8-1.4); PROTHROMBIN TIME PATIENT 27.3 SEC (12.2-14.7)
== END 2020-10-04 | disposition home or self-care (01) ==
LOC: ONC 10:10
PROVIDERS: ATTEND Internal Medicine Hematology & Oncology
DX: F41.1 Generalized anxiety disorder (principal); G47.33 Obstructive sleep apnea (adult) (pediatric); E78.00 Pure hypercholesterolemia, unspecified; D68.59 Other primary thrombophilia; Z85.89 Personal history of malignant neoplasm of other organs and systems; Z79.01 Long term (current) use of anticoagulants; Z92.21 Personal history of antineoplastic chemotherapy; Z92.3 Personal history of irradiation; Z85.3 Personal history of malignant neoplasm of breast
CPT/HCPCS: 36591; 80053; 83615; 85025; 85610; 99213

== ENCOUNTER → 2020-10-04 | Outpatient (CLI) | payer OTHER ==
--- NOTE | 2020-10-04 10:17 | Diagnostic Imaging Report ---
Bilateral diagnostic mammogram This study was compared to the prior exams of 01/12/2020, 09/29/2019, 09/28/2018 and 10/06/2017. 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 The previous right breast ultrasound exam of 01/05/2020 suggested a small cyst in the 9 o'clock position of the right breast at mid depth. This area was subsequently biopsied using ultrasound guidance on 01/12/2020. The results of the biopsy noted a benign apical consistent stromal fibrosis but failed to show any evidence for malignancy. On this exam the asymmetry in the lateral aspect of the right breast seen previously is much less conspicuous on this exam. There is now a surgical clip in this area. The overall appearance of the right breast itself has not changed significantly. There are scattered fibroglandular densities which could vascular lesion. There is also some residual skin thickening from the patient's prior radiation therapy. There are also scattered fibroglandular densities in the left breast. In the upper outer quadrant of the left breast at mid posterior depth there is a suggestion of an area of architectural distortion. This finding is not as conspicuous on the compression views. Even so, I would recommend ultrasound of this area be performed for further study. Impression: 1. There are post biopsy changes involving the right breast. There is no evidence for malignancy involving the right breast. 2. There is a questionable area of architectural distortion of the upper outer aspect of the left breast. Ultrasound would be recommended for further study. ACR BI-RADS Category 0: Incomplete. (Needs additional imaging evaluation). Result letter will be mailed to the patient. Note: At least 10% of breast cancer is not imaged by mammography. Dictated by: Dictated on workstation # [id number]
--- NOTE | 2020-10-04 10:32 | Diagnostic Imaging Report ---
Limited ultrasound of the left breast. INDICATION: Abnormal mammogram The diagnostic mammogram performed earlier today raised the question of an area of architectural distortion the upper quadrant of the left breast. On this exam there is no discrete solid or cystic mass identified in this area. There is no shadowing to indicate an underlying neoplastic process either. I suspect that the finding of the mammogram was related to fibroglandular tissue alone. Even so, it may prove worthwhile to have a short-term (6 month) follow-up mammogram of the left breast for continued evaluation. IMPRESSION: There is no evidence for malignancy. Recommendations as above. ACR BI-RADS Category 3: Probably benign findings. Dictated by: Dictated on workstation # [id number]
== END ==
LOC: RAD 08:59
PROVIDERS: ATTEND Internal Medicine Hematology & Oncology
DX: C50.411 Malignant neoplasm of upper-outer quadrant of right female breast (principal)
CPT/HCPCS: 76642; 77066; G0279; 77062

== ENCOUNTER → 2020-10-04 | Outpatient (CLI) | payer OTHER ==
[~2020-10-04] MED LIST changes: +RT-ALBUTEROL SULF 2.5 MG/3 ML PRE-MIX VIAL INH ONE
== END ==
LOC: RT 09:00
PROVIDERS: ATTEND Nurse Practitioner Family
DX: J45.30 Mild persistent asthma, uncomplicated (principal)
CPT/HCPCS: 94060; 94726; 94729

== ENCOUNTER → 2020-11-24 | Outpatient (CLI) | payer OTHER ==
[~2020-11-24] MED LIST changes: -RT-ALBUTEROL SULF 2.5 MG/3 ML PRE-MIX VIAL INH ONE
== END ==
LOC: CARD 11:27
PROVIDERS: ATTEND Internal Medicine Interventional Cardiology
DX: I51.7 Cardiomegaly (principal); I49.3 Ventricular premature depolarization; Z86.16 Personal history of COVID-19
CPT/HCPCS: 93306

== ENCOUNTER 2020-12-01 10:34 | Outpatient (RCR) | payer OTHER | END 2020-12-07 | disposition home or self-care (01) | PROVIDERS: ATTEND Family Medicine | DX: M48.02 Spinal stenosis, cervical region (principal) ==

== ENCOUNTER → 2020-12-13 | Outpatient (CLI) | payer OTHER ==
[2020-12-13 11:32] LABS: INR 2.4 (0.8-1.4); PROTHROMBIN TIME PATIENT 26.5 SEC (12.2-14.7)
[2020-12-13 11:44] LABS: CREATINE KINASE MB 1.1 NG/ML (<6.6)
== END ==
LOC: LAB 10:57
PROVIDERS: ATTEND Family Medicine
DX: R07.9 Chest pain, unspecified (principal)
CPT/HCPCS: 36415; 82553; 83874; 84484; 85610

== ENCOUNTER → 2020-12-29 | Outpatient (CLI) | payer OTHER ==
[~2020-12-29] VITALS: Ht 177.8 cm; Wt 108.2 kg
== END | disposition home or self-care (01) ==
LOC: PREOP 05:32 → EDSTATUS 09:30
PROVIDERS: ATTEND Internal Medicine
DX: Z01.818 Encounter for other preprocedural examination (principal)

== ENCOUNTER 2021-01-05 07:04 | Day surgery (SDC) | payer OTHER ==
[~2021-01-05] VITALS: Ht 177.8 cm; Wt 108.2 kg
[~2021-01-05 07:04] MED LIST changes: +BIMA2.5D4 OU; +CALC-250 PO; +DORZ10DR22 OU; +FLUT16SP22 NS; +FLUT1BLS IH; +MONT10TA32 PO; +NITR100C PO; +RT-ALBUINH IH; +TOLT4CAP13 PO; +WARF4TAB3 PO
[2021-01-05] MEDS ORDERED: LACTATED RINGERS 1,000 ML IV STA (07:05)
[2021-01-05] MEDS ORDERED: HURRICAINE EXT TUBE (BENZOCAINE) XX PRN (07:15)
[2021-01-05] MEDS ORDERED: LIDOCAINE JELLY 2% 6 ML SYRINGE MM PRN (07:15)
[2021-01-05] MEDS ORDERED: PROPOFOL INJECTION 50 ML IV ONE (07:20)
[2021-01-05] MEDS ORDERED: LACTATED RINGERS 1,000 ML IV ONE (07:21)
[2021-01-05] MEDS ORDERED: MIDAZOLAM 2 MG/2 ML (VERSED) VIAL ONE (07:21)
[2021-01-05 07:43] VITALS: BP 110/77
[2021-01-05] MEDS ORDERED: HURRICAINE EXT TUBE (BENZOCAINE) ONE (08:02)
[2021-01-05] MEDS ORDERED: LIDOCAINE JELLY 2% 6 ML SYRINGE ONE (08:02)
--- NOTE | 2021-01-05 08:04 | Pre-Op Note & Conscious Sedat ---
Pre-Operative Progress Note H&P Reviewed The H&P was reviewed, patient examined and no changes noted. Date H&P Reviewed: Jan 05, 2021 Time H&P Reviewed: 07:45 Conscious Sedation Pre-Proced ASA Score 2 For ASA 3 and 4: Consider anesthesia and medical clearance. Also, for patients with a history of failed moderate sedation consider anesthesia. Airway Lungs Heart ASA score ASA 1: a normal healthy patient ASA 2: a patient with a mild systemic disease (mid diabetes, controlled hypertension, obesity ASA 3: a patient with a severe systemic disease that limits activity (angina, COPD, prior Myocardial infarction) ASA 4: a patient with an incapacitating disease that is a constant threat to life (CHF, renal failure) ASA 5: a moribund patient not expected to survive 24 hrs. (ruptured aneurysm) ASA 6: a declared brain- patient whose organs are being harvested. For emergent operations, add the letter E after the classification Mallampati Classification Grade 2 Sedation Plan Analgesia, Amnesia, Plan communicated to team members, Discussed options with patient/fam, Discussed risks with patient/fam The patient is an appropriate candidate to undergo the planned procedure, sedation, and anesthesia. The patient immediately re-assessed prior to indication. MARYLU HARRIS MD Jan 05, 2021 08:04
[2021-01-05 08:40] VITALS: BP 95/59
[2021-01-05 08:45] VITALS: BP 96/60
[2021-01-05 08:50] VITALS: BP_SYST 101; BP_SYST 110; BP_DIAS 58; BP_DIAS 68
[2021-01-05 09:20] VITALS: BP 108/71
[2021-01-05 10:00] VITALS: BP 108/71
--- NOTE | 2021-01-05 12:23 | Anesthesia-General Post-Op ---
MAC Patient Condition Mental Status/LOC: Same as Preop Cardiovascular: Satisfactory Nausea/Vomiting: Absent Respiratory: Satisfactory Pain: Controlled Complications: Absent Post Op Complications Complications None Follow Up Care/Instructions Patient Instructions None needed. Anesthesiology Discharge Order Discharge Order Patient is doing well, no complaints, stable vital signs, no apparent adverse anesthesia problems. No complications reported per nursing. MAU KIRK CRNA Jan 05, 2021 12:23
--- NOTE | 2021-01-05 19:32 | OPERATIVE REPORT ---
DATE OF SERVICE: PANENDOSCOPY SUMMARY INDICATION FOR PROCEDURE: Colonoscopy was done for screening purposes and EGD was done for evaluation of epigastric pain and intermittent dysphagia. DESCRIPTION OF PROCEDURE: The patient was placed in the left lateral decubitus position. Prior to undergoing colonoscopy, digital rectal evaluation was performed. Anal sphincter tone was normal and the perianal reflexes intact. No abnormalities were noted on digital inspection of anal canal or distal rectal vault. The colonoscope was then inserted into the rectum and under direct visualization advanced to cecum. The cecum was identified by identification of ileocecal valve and cecal strap. Photographic documentation was obtained. The patient was under Diprivan based anesthesia and tolerated the procedure well. FINDINGS: Two grade 1 -- small areas of internal hemorrhoids were noted. No evidence for external hemorrhoid formation. The rectum was unremarkable. Present in the distal sigmoid colon was a sessile roughly 6 mm x 8 mm adenomatous appearing polyp. It was biopsied and ablated. The patient is on Coumadin and had a little more than normal blood loss. One Resolute clip was deployed with cessation of blood loss estimated to be less than 5 mL. The previous sigmoid resection margin was unremarkable. Two small to medium size diverticulum were noted and what I suspect is descending colon or proximal sigmoid colon without evidence for diverticulitis. Otherwise, the descending colon and splenic flexure were unremarkable. The transverse colon was unremarkable. There were 2 adjacent sessile polyps noted at the hepatic flexure. Both were biopsied and ablated with no blood loss. The remainder of the ascending colon and cecum were unremarkable. ASSESSMENT: Three polyps were removed via hot forceps as noted above. The larger polyp in the distal sigmoid colon was clipped with resolution clip as well. We will await histopathology report before making a surveillance colonoscopy recommendation, which is not likely to be more than 3 years. We then proceeded with EGD evaluation. The endoscope was inserted into the oral cavity and under direct visualization, esophagus was intubated. The endoscope was passed down the esophagus through the stomach and second portion of the duodenum. Careful inspection was made as the endoscope was withdrawn. The patient tolerated the procedure well. FINDINGS: The posterior pharynx, arytenoid aperture, true and false vocal folds and epiglottis were unremarkable to visual inspection. Proximal and mid esophagus were unremarkable. The Z line was proximally placed at 36 cm from the incisor orifice due to small to medium size hiatal hernia. There was some mild erythema noted at the Z line. No gross evidence to suggest Loyola's esophagus or erosive esophagitis. The cardia and fundus of the stomach were unremarkable. There is some mild antral erythema present. A biopsy was obtained and submitted for Helicobacter. No evidence for peptic ulcer disease was noted. The pylorus, the pyloric channel, duodenal bulb and second portion of duodenum were unremarkable to visual inspection. ASSESSMENT: Small to moderate size hiatal hernia was present without evidence for erosive esophagitis or stricture formation. There was some mild antral erythema noted as well. Biopsies from the Z line as well as antrum were obtained for evaluation of histopathology and Helicobacter evaluation. The patient was reassured by today's findings and advised to continue proton pump inhibitor therapy and discussed the importance of chewing her food more carefully and drinking more fluids with meals as well as trying to slow down her eating, which is admittedly fast. I thank you for the referral of this pleasant lady. Job ID: [id number] DocumentID: [id number] Dictated Date: 01/05/2021 12:29:32 Flask Cleaner Date: 01/05/2021 19:31:56 Dictated By: MARYLU HARRIS MD MTDD
--- NOTE | 2021-01-22 13:54 | HISTORY AND PHYSICAL ---
NAME: MIKHAIL [facility] REC#: [id number] : 1960 ADMIT DATE: 12/15/20 DATE OF SERVICE: 12/15/2020 PANENDOSCOPY HISTORY AND PHYSICAL HISTORY OF PRESENT ILLNESS: The patient is a 60-year-old white female referred for panendoscopy by Dr. Ray. She has noted ever since diagnosis of COVID. She has been having increased problems with dysphagia predominantly to solids. She denies any heartburn type symptoms. She does report a history of gastroparesis with no known history of diabetes. She was diagnosed with COVID on 10/20/2020 of this year, has mostly recovered. Still has a little more fatigue, especially following nursing shifts. She has been back to work for the past 2 weeks, had not been able to work secondary to fatigue prior to this. She was due for screening colonoscopy. She has a past history of sigmoid resection for severe diverticulitis in 2003. Electronic medical record was reviewed and her last colonoscopy was performed by Dr. Guerra in 2008, at which time she still had some mild residual diverticular disease, has been unremarkable anastomosis and no evidence for neoplasia at that time. She is not aware of any family history for GI tract malignancy. The patient does have chronic constipation. She has been taking Linzess 72 mg daily. It has been rather unpredictable and for her higher doses led to some incontinence problems and diarrhea. PAST MEDICAL HISTORY: Significant for small cell carcinoma of the breast. She underwent radiation therapy to the breast and prophylactic radiation therapy to the brain as well as chemotherapy in 2012, there has been no evidence for recurrence since. 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 Biggs in 2017. She has had distant past history of appendectomy at the time of and cholecystectomy. 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 There is history of paroxysmal atrial fibrillation. MEDICATIONS ON ADMISSION: Include: 1. Omeprazole 20 mg daily. 2. Flonase nasal spray at bedtime daily. 3. Breo Ellipta, she takes for asthma, 1 puff daily. 4. Coumadin 4 mg daily. 5. Combivent inhaler p.r.n. 6. Macrodantin 100 mg daily, maintenance for recurrent urinary tract infection. 7. Buspirone 15 mg b.i.d. 8. Toviaz 8 mg daily. 9. Neurontin 300 mg at bedtime. SOCIAL HISTORY: The patient has no past smoking history. No significant alcohol intake. 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 REVIEW OF SYSTEMS: CONSTITUTIONAL: She denies night sweats, chills, fever, work change in weight. PULMONARY: She denies cough, chest congestion, still notes a little more dyspnea on exertion and baseline since COVID diagnosis. She has had no hemoptysis. Denies chest pain. CARDIOVASCULAR: She has had no syncope, presyncope. Recent echo post-COVID was unremarkable with an ejection fraction of 55%, normal pulmonary artery pressures and no valvular abnormality. GASTROINTESTINAL: She has noted no bright red blood per rectum or melena. Does have some intermittent fecal incontinence and reports she did have a fourth-degree tear with her first child. FAMILY HISTORY: She is not aware of any family history for GI tract malignancy. PHYSICAL EXAMINATION: GENERAL: Reveals pleasant overweight white female in no acute distress. VITAL SIGNS: Blood pressure 120/80. HEENT: Unremarkable. CHEST: Clear to auscultation. CARDIOVASCULAR: Revealed a regular rate and rhythm without murmur, S3 or S4. ABDOMEN: Soft, supple without mass, organomegaly or tenderness. EXTREMITIES: Reveal no cyanosis, clubbing or edema. ASSESSMENT AND PLAN: The patient is being set up for diagnostic EGD due to dysphagia and screening colonoscopy. Prep instructions with Suprep kit were given and questions were answered. As the patient has unpredictable affect and does have some cramping with higher dose of Linzess and lower doses are not always effective and the lowest dose 72 mg is not always effective for her. We will try her on Trulance 20mg daily. Samples were given. I thank you for the referral of this pleasant lady. Job ID: [id number] DocumentID: [id number] Dictated Date: 12/15/2020 10:11:08 Director Of Research Date: 12/15/2020 12:16:26 Dictated By: MARYLU HARRIS MD <Dictated by MARYLU HARRIS MD> <Electronically signed by MARYLU HARRIS MD> 12/17/20 0956 [facility]
== END 2021-01-05 10:00 | disposition home or self-care (01) ==
LOC: ENDO 07:04
PROVIDERS: ATTEND Internal Medicine
DX: Z12.11 Encounter for screening for malignant neoplasm of colon (principal); D12.5 Benign neoplasm of sigmoid colon; D12.3 Benign neoplasm of transverse colon; K29.50 Unspecified chronic gastritis without bleeding; K64.0 First degree hemorrhoids; K21.00 Gastro-esophageal reflux disease with esophagitis, without bleeding; K57.30 Diverticulosis of large intestine without perforation or abscess without bleeding; I10 Essential (primary) hypertension; J45.909 Unspecified asthma, uncomplicated; I48.91 Unspecified atrial fibrillation; E66.9 Obesity, unspecified; Z68.34 Body mass index [BMI] 34.0-34.9, adult; Z79.899 Other long term (current) drug therapy
CPT/HCPCS: 88305; 88342

== ENCOUNTER → 2021-02-06 | Outpatient (RCR) | payer OTHER ==
[2020-11-08 10:16] LABS: INR 3.9 (0.8-1.4); PROTHROMBIN TIME PATIENT 38.7 SEC (12.2-14.7)
[2020-12-18 13:17] LABS: INR 2.1 (0.8-1.4); PROTHROMBIN TIME PATIENT 23.6 SEC (12.2-14.7)
[2021-02-06 14:24] LABS: INR 2.1 (0.8-1.4); PROTHROMBIN TIME PATIENT 24.1 SEC (12.2-14.7)
== END | disposition home or self-care (01) ==
LOC: ONC 11-08 09:51
PROVIDERS: ATTEND Internal Medicine Hematology & Oncology
DX: G47.33 Obstructive sleep apnea (adult) (pediatric) (principal); F41.1 Generalized anxiety disorder; J45.30 Mild persistent asthma, uncomplicated; E78.00 Pure hypercholesterolemia, unspecified; D68.59 Other primary thrombophilia; Z85.89 Personal history of malignant neoplasm of other organs and systems; Z79.01 Long term (current) use of anticoagulants; Z92.21 Personal history of antineoplastic chemotherapy; Z92.3 Personal history of irradiation; Z85.3 Personal history of malignant neoplasm of breast
CPT/HCPCS: 36591; 85610

== ENCOUNTER 2021-03-09 09:48 | Outpatient (RCR) | payer OTHER | END 2021-03-14 | disposition home or self-care (01) | PROVIDERS: ATTEND Family Medicine | DX: M48.02 Spinal stenosis, cervical region (principal) ==

== ENCOUNTER → 2021-04-05 | Outpatient (CLI) | payer OTHER ==
--- NOTE | 2021-04-05 13:52 | Diagnostic Imaging Report ---
INDICATION: Six-month follow-up of left breast architectural distortion. CORRELATION is made with prior exam from 10/04/2020 and 09/29/2019. Unilateral left 2-D and 3-D diagnostic mammography was performed with CAD. Scattered fibroglandular densities in the left breast are noted. There area of questionable architectural distortion in the upper outer left breast at mid depth appears less prominent on today's study. No discrete mass is seen. No malignant appearing microcalcifications are identified. Left axilla is unremarkable. IMPRESSION: BI-RADS Category 3 Stable left mammogram and questionable area of architectural distortion in the upper outer left breast. Additional six-month follow-up is recommended to show continued stability. ACR BI-RADS Category 3: Probably benign findings. Result letter will be mailed to the patient. Note: At least 10% of breast cancer is not imaged by mammography. Dictated by: Dictated on workstation # [id number]
== END ==
LOC: RAD 13:45
PROVIDERS: ATTEND Internal Medicine Hematology & Oncology
DX: C50.119 Malignant neoplasm of central portion of unspecified female breast (principal); R92.8 Other abnormal and inconclusive findings on diagnostic imaging of breast
CPT/HCPCS: 77065; G0279

== ENCOUNTER 2021-04-27 10:37 | Outpatient (RCR) | payer OTHER ==
[2021-02-22 14:51] LABS: INR 2.2 (0.8-1.4); PROTHROMBIN TIME PATIENT 24.6 SEC (12.2-14.7)
[2021-04-10 14:52] LABS: INR 2.8 (0.8-1.4); PROTHROMBIN TIME PATIENT 30.2 SEC (12.2-14.7)
[~2021-04-27 10:37] MED LIST changes: -TOLT4CAP13 PO; +TOLT4CAP26 PO
[2021-04-27 11:03] LABS: INR 3.1 (0.8-1.4)
== END 2021-05-23 | disposition home or self-care (01) ==
LOC: ONC 10:37
PROVIDERS: ATTEND Internal Medicine Hematology & Oncology
DX: D68.59 Other primary thrombophilia (principal); Z79.01 Long term (current) use of anticoagulants; Z92.21 Personal history of antineoplastic chemotherapy; Z85.3 Personal history of malignant neoplasm of breast
CPT/HCPCS: 36591; 85610

== ENCOUNTER 2021-06-07 08:49 | Outpatient (RCR) | payer OTHER | END 2021-06-13 | disposition home or self-care (01) | PROVIDERS: ATTEND Family Medicine | DX: M48.02 Spinal stenosis, cervical region (principal); Z85.3 Personal history of malignant neoplasm of breast ==

== ENCOUNTER → 2021-06-21 | Outpatient (CLI) | payer OTHER ==
[2021-06-21 11:14] LABS: ALBUMIN 3.6 GM/DL (3.2-4.5); BILIRUBIN,TOTAL 0.7 MG/DL (0.1-1.0); CALCIUM 9.6 MG/DL (8.5-10.1); CREATININE SERUM 0.78 MG/DL (0.60-1.30); POTASSIUM 4.8 MMOL/L (3.6-5.0)
== END ==
LOC: LAB 10:28
PROVIDERS: ATTEND Nurse Practitioner Family
DX: E78.5 Hyperlipidemia, unspecified (principal)
CPT/HCPCS: 36415; 80053; 80061

== ENCOUNTER → 2021-06-22 | Outpatient (CLI) | payer OTHER ==
--- NOTE | 2021-06-22 15:47 | Diagnostic Imaging Report ---
PROCEDURE: US carotid duplex, bilateral. TECHNIQUE: Multiple real-time grayscale images were obtained over the carotid arteries in various projections, bilaterally. Additional spectral analysis and color Doppler duplex images were also obtained. INDICATION: Hypertension. FINDINGS: The previous carotid Doppler exam performed on 10/04/2019 noted mild atherosclerotic disease involving both carotid systems but failed to show any sign of a hemodynamically significant stenosis. On this exam, the mild atherosclerotic changes involving the carotid systems seen previously are again evident and no different. There is still no sign of a hemodynamically significant stenosis of either carotid system. Both vertebral arteries were identified, and there was antegrade flow bilaterally. IMPRESSION: There is still no evidence for a hemodynamically significant stenosis of either carotid system. Parameters based on the consensus panel Bland-Scale and Doppler ultrasound criteria published August 2003, Radiology, Volume 229. DOPPLER (peak systolic velocity M/S Right Left CCA .75 .93 ICA Proximal .61 .51 ICA Mid .63 .52 ICA Distal .74 .46 RATIO .98 .57 ECA .65 .64 VERT .20 .17 Dictated by: Dictated on workstation # [id number]
== END ==
LOC: RAD 10:59
PROVIDERS: ATTEND Nurse Practitioner Family
DX: I65.23 Occlusion and stenosis of bilateral carotid arteries (principal); I10 Essential (primary) hypertension
CPT/HCPCS: 93880

== ENCOUNTER 2021-07-09 12:34 | Outpatient (RCR) | payer OTHER | END 2021-07-09 16:30 | disposition home or self-care (01) | PROVIDERS: ATTEND Family Medicine | DX: M48.02 Spinal stenosis, cervical region (principal); J45.909 Unspecified asthma, uncomplicated; F41.9 Anxiety disorder, unspecified ==

== ENCOUNTER → 2021-07-25 | Outpatient (CLI) | payer OTHER ==
--- NOTE | 2021-07-25 13:21 | Diagnostic Imaging Report ---
EXAM: CERVICAL SPINE 3 VIEWS OR LESS. INDICATION: Cervical spine fusion. COMPARISON: Cervical spine radiographs 09/12/2020. FINDINGS: Interval postoperative findings from an anterior fusion with interbody devices at C5-C7. Hardware components appear intact. No evidence of loosening. Normal alignment. Normal prevertebral soft tissues. IMPRESSION: Anterior fusion with interbody devices at C5-C7. No evidence of hardware failure. Dictated by: Dictated on workstation # [id number]
== END ==
LOC: RAD 12:08
PROVIDERS: ATTEND Physician Assistant
DX: M43.22 Fusion of spine, cervical region (principal)
CPT/HCPCS: 72040

== ENCOUNTER 2021-08-15 11:14 | Outpatient (RCR) | payer OTHER ==
[2021-05-31 11:20] LABS: INR 3.4 (0.8-1.4); PROTHROMBIN TIME PATIENT 34.8 SEC (12.2-14.7)
[2021-07-02 10:34] LABS: INR 2.6 (0.8-1.4); PROTHROMBIN TIME PATIENT 28.5 SEC (12.2-14.7)
[2021-07-16 14:01] LABS: INR 1.7 (0.8-1.4); PROTHROMBIN TIME PATIENT 20.8 SEC (12.2-14.7)
[2021-07-20 12:33] LABS: INR 2.6 (0.8-1.4); PROTHROMBIN TIME PATIENT 28.6 SEC (12.2-14.7)
[2021-07-27 12:11] LABS: INR 2.7 (0.8-1.4); PROTHROMBIN TIME PATIENT 28.8 SEC (12.2-14.7)
[2021-08-15 11:55] LABS: INR 2.4 (0.8-1.4); PROTHROMBIN TIME PATIENT 26.1 SEC (12.2-14.7)
== END 2021-08-29 | disposition home or self-care (01) ==
LOC: ONC 11:14
PROVIDERS: ATTEND Internal Medicine Hematology & Oncology
DX: Z45.2 Encounter for adjustment and management of vascular access device (principal); D68.59 Other primary thrombophilia; Z85.89 Personal history of malignant neoplasm of other organs and systems; Z79.01 Long term (current) use of anticoagulants; Z92.21 Personal history of antineoplastic chemotherapy; Z92.3 Personal history of irradiation; Z85.3 Personal history of malignant neoplasm of breast
CPT/HCPCS: 36591; 85610

== ENCOUNTER → 2021-09-21 | Outpatient (CLI) | payer OTHER ==
[~2021-09-21] MED LIST changes: +MONT-40 PO; -MONT10TA32 PO
--- NOTE | 2021-09-21 10:27 | Diagnostic Imaging Report ---
Indication: Postop cervical spine surgery. TIME OF EXAM: 9:24 AM Correlation is made with prior study 07/25/2021. Two-view cervical spine demonstrate postoperative changes ACDF with anterior plate and screws transfixing the C5-C7 levels. Hardware appears intact. There is degenerative disc disease C2-C3, C3-C4 and C4-C5 levels with disc space narrowing and marginal spurring. Prevertebral tissues are normal. No fractures are seen IMPRESSION: Stable postop changes of C5-C7 ACDF when compared with exam from 07/25/2021. Dictated by: Dictated on workstation # [id number]
== END ==
LOC: RAD 09:02
PROVIDERS: ATTEND Neurological Surgery
DX: Z48.89 Encounter for other specified surgical aftercare (principal); Z98.1 Arthrodesis status
CPT/HCPCS: 72040

== ENCOUNTER → 2021-09-27 | Outpatient (CLI) | payer OTHER ==
--- NOTE | 2021-09-27 15:14 | Diagnostic Imaging Report ---
INDICATION: Right hip pain. TIME OF EXAM: 2:49 p.m. FINDINGS: Two views of the right hip show normal femoroacetabular alignment. The femoral head and neck are intact. No fractures are seen. Right-sided rami are intact. Joint space is fairly well maintained. IMPRESSION: No acute bony abnormality is detected. Dictated by: Dictated on workstation # [id number]
== END ==
LOC: RAD 14:04
PROVIDERS: ATTEND Family Medicine
DX: M25.551 Pain in right hip (principal)
CPT/HCPCS: 73502

== ENCOUNTER → 2021-10-04 | Outpatient (CLI) | payer OTHER ==
--- NOTE | 2021-10-04 14:50 | Diagnostic Imaging Report ---
INDICATION: Six-month follow-up left breast architectural distortion. CORRELATION is made with prior mammograms from 04/05/2021, 10/04/2020 and 09/29/2019. 2-D and 3-D bilateral diagnostic mammography was performed with CAD. Scattered fibroglandular densities are identified bilaterally. Area of architectural distortion in the upper outer left breast is stable. This shows one year of stability. There are scattered benign calcifications. No new mass or malignant-appearing microcalcifications are seen. Axillae are unremarkable. IMPRESSION: BI-RADS Category 3 Stable bilateral mammograms. The area of architectural distortion in the upper outer left breast is stable now for one year. An additional six-month follow-up is recommended to show continued stability. ACR BI-RADS Category 3: Probably benign findings. Result letter will be mailed to the patient. Note: At least 10% of breast cancer is not imaged by mammography. Dictated by: Dictated on workstation # [id number]
== END ==
LOC: RAD 14:15
PROVIDERS: ATTEND Internal Medicine Hematology & Oncology
DX: R92.8 Other abnormal and inconclusive findings on diagnostic imaging of breast (principal); F41.8 Other specified anxiety disorders
CPT/HCPCS: 77066; G0279; 77062

== ENCOUNTER 2021-10-11 09:59 | Outpatient (RCR) | payer OTHER ==
[2021-09-17 11:37] LABS: INR 2.3 (0.8-1.4); PROTHROMBIN TIME PATIENT 25.4 SEC (12.2-14.7)
[2021-10-10 14:34] LABS: BASOPHILS % (AUTO) 0 % (0-10); EOSINOPHILS # (AUTO) 0.2 10^3/uL (0.0-0.3); EOSINOPHILS % (AUTO) 3 % (0-10); HEMATOCRIT 40 % (35-52); HEMOGLOBIN 13.5 g/dL (11.5-16.0); LYMPHOCYTES # (AUTO) 2.2 10^3/uL (1.0-4.0); LYMPHOCYTES % (AUTO) 36 % (12-44); MEAN CORPUSCULAR HEMOGLOBIN 31 pg (25-34); MEAN CORPUSCULAR HGB CONC 34 g/dL (32-36); MEAN CORPUSCULAR VOLUME 90 fL (80-99); MEAN PLATELET VOLUME 9.9 fL (9.0-12.2); MONOCYTES # (AUTO) 0.6 10^3/uL (0.0-1.0); MONOCYTES % (AUTO) 10 % (0-12); NEUTROPHILS # (AUTO) 3.1 10^3/uL (1.8-7.8); NEUTROPHILS % (AUTO) 51 % (42-75); PLATELET COUNT 240 10^3/uL (130-400); WHITE BLOOD COUNT 6.1 10^3/uL (4.3-11.0)
[2021-10-10 14:51] LABS: INR 2.8 (0.8-1.4); PROTHROMBIN TIME PATIENT 30.4 SEC (12.2-14.7)
[2021-10-10 14:56] LABS: ALBUMIN 3.3 GM/DL (3.2-4.5); BILIRUBIN,TOTAL 0.4 MG/DL (0.1-1.0); CALCIUM 8.3 MG/DL (8.5-10.1); CREATININE SERUM 0.78 MG/DL (0.60-1.30); POTASSIUM 3.8 MMOL/L (3.6-5.0); TOTAL PROTEIN 6.7 GM/DL (6.4-8.2)
== END 2021-10-19 | disposition home or self-care (01) ==
LOC: ONC 09:59
PROVIDERS: ATTEND Internal Medicine Hematology & Oncology
DX: Z45.2 Encounter for adjustment and management of vascular access device (principal); C50.119 Malignant neoplasm of central portion of unspecified female breast; D68.59 Other primary thrombophilia; F41.8 Other specified anxiety disorders; Z79.01 Long term (current) use of anticoagulants; Z92.21 Personal history of antineoplastic chemotherapy; Z92.3 Personal history of irradiation
CPT/HCPCS: 36591; 80053; 85025; 85610; 99213

== ENCOUNTER → 2021-11-06 | Outpatient (CLI) | payer OTHER ==
[2021-11-06 09:41] LABS: INR 4.3 (0.8-1.4); PROTHROMBIN TIME PATIENT 41.4 SEC (12.2-14.7)
== END ==
LOC: EDSTATUS 10-20 08:58 → ONC 08:59
PROVIDERS: ATTEND Internal Medicine Hematology & Oncology
DX: Z45.2 Encounter for adjustment and management of vascular access device (principal); C50.111 Malignant neoplasm of central portion of right female breast; G47.33 Obstructive sleep apnea (adult) (pediatric); D68.59 Other primary thrombophilia; E78.00 Pure hypercholesterolemia, unspecified; F41.8 Other specified anxiety disorders; E66.9 Obesity, unspecified; Z79.01 Long term (current) use of anticoagulants; Z98.890 Other specified postprocedural states; Z85.828 Personal history of other malignant neoplasm of skin; Z92.3 Personal history of irradiation
CPT/HCPCS: 36591; 85610

== ENCOUNTER → 2021-11-26 | Outpatient (CLI) | payer OTHER ==
--- NOTE | 2021-11-26 13:33 | Diagnostic Imaging Report ---
INDICATION: Cervical spine surgery. TIME OF EXAM: 12:16 PM Correlation is made with prior radiograph from 09/21/2021. AP and lateral views of the cervical spine as well as flexion and extension lateral views of the cervical spine were obtained. There are postoperative changes of C5-C7 ACDF. The hardware appears to be intact without fracture or loosening. No abnormal motion during flexion or extension maneuvers is identified. The prevertebral tissues are normal. Odontoid is intact. IMPRESSION: Stable postop changes from C5 through C7 ACDF. No complicating features are detected. Dictated by: Dictated on workstation # [id number]
== END ==
LOC: RAD 11:47
PROVIDERS: ATTEND Physician Assistant
DX: Z98.1 Arthrodesis status (principal)
CPT/HCPCS: 72050

== ENCOUNTER → 2021-11-26 | Outpatient (CLI) | payer OTHER ==
--- NOTE | 2021-11-26 13:31 | Diagnostic Imaging Report ---
INDICATION: Chest pain and shortness of air. TIME OF EXAM: 12:12 PM Correlation is made with prior chest 07/05/2016. Left chest wall port has tip overlying SVC. The heart size is stable. Lungs are clear. No infiltrates are seen. The pulmonary vascularity is normal. No effusion or pneumothorax identified. There are postoperative changes in the lower cervical spine. IMPRESSION: Stable chest. No acute cardiopulmonary process is detected. Dictated by: Dictated on workstation # [id number]
== END ==
LOC: RAD 11:44
PROVIDERS: ATTEND Nurse Practitioner Family
DX: R07.9 Chest pain, unspecified (principal); R06.00 Dyspnea, unspecified; R06.02 Shortness of breath
CPT/HCPCS: 71046

== ENCOUNTER → 2021-12-10 | Outpatient (CLI) | payer OTHER | LOC: CARD 14:00 | PROVIDERS: ATTEND Internal Medicine Interventional Cardiology | DX: I49.3 Ventricular premature depolarization (principal); R00.2 Palpitations; D68.59 Other primary thrombophilia; R60.0 Localized edema | CPT/HCPCS: 93306 ==

== ENCOUNTER → 2021-12-31 | Outpatient (CLI) | payer OTHER ==
[2021-12-31 11:08] VITALS: BP 123/77
== END ==
LOC: SDC 10:53
PROVIDERS: ATTEND Internal Medicine Hematology & Oncology
DX: D68.59 Other primary thrombophilia (principal); Z79.01 Long term (current) use of anticoagulants; Z85.3 Personal history of malignant neoplasm of breast
CPT/HCPCS: 96523

== ENCOUNTER → 2022-02-14 | Outpatient (CLI) | payer OTHER ==
[2022-02-14 12:08] LABS: INR 2.3 (0.8-1.4); PROTHROMBIN TIME PATIENT 25.4 SEC (12.2-14.7)
== END ==
LOC: LAB 11:00
PROVIDERS: ATTEND Internal Medicine Hematology & Oncology
DX: D68.59 Other primary thrombophilia (principal); Z85.3 Personal history of malignant neoplasm of breast; Z79.01 Long term (current) use of anticoagulants
CPT/HCPCS: 36415; 85610

== ENCOUNTER → 2022-02-28 | Outpatient (CLI) | payer OTHER ==
[2022-02-14 11:40] VITALS: BP 0/0
[2022-02-14 12:08] LABS: INR 2.3 (0.8-1.4); PROTHROMBIN TIME PATIENT 25.4 SEC (12.2-14.7)
[~2022-02-28] VITALS: Ht 177.8 cm; Wt 108.2 kg
[~2022-02-28] MED LIST changes: +RT-ALBUTEROL SULF 2.5 MG/3 ML PRE-MIX VIAL INH ONE
--- NOTE | 2022-02-28 12:32 | Diagnostic Imaging Report ---
REASON FOR EXAM: Persistent shortness of breath status post COVID infection. Evaluate for fibrosis. History of right-sided breast cancer. COMPARISON: 02/13/2020. TECHNIQUE: Thin section high resolution noncontrast-enhanced axial images were obtained through the chest in supine inspiration and expiration and in prone inspiration, as per the department of CT high resolution chest protocol. FINDINGS: The soft tissue windows demonstrate normal heart size. There is no pleural or pericardial effusion. No large mediastinal or hilar adenopathy is seen. Left-sided port is visualized with the tip in the upper SVC. Inspiration: The lung volumes are maintained. Minimal dependent atelectasis is seen in the lung bases which resolves on prone imaging. No consolidation or ground-glass opacities. No bronchiectasis. No suspicious nodules. No pulmonary cysts. There is no evidence of subpleural fibrosis and honeycombing. Expiration: No evidence for focal air trapping. No overt airway collapse. Prone: No significant subpleural fibrosis or honeycombing. Limited views of the upper abdomen are unremarkable. The gallbladder surgically absent. No acute osseous abnormalities. IMPRESSION: 1. No evidence of idiopathic interstitial lung disease. 2. No focal consolidation or suspicious pulmonary nodules. Dictated by: Dictated on workstation # [id number]
== END ==
LOC: SDC 02-14 11:17 → RAD 07:59
PROVIDERS: ATTEND Internal Medicine Pulmonary Disease
DX: J45.909 Unspecified asthma, uncomplicated (principal); D68.59 Other primary thrombophilia; Z79.01 Long term (current) use of anticoagulants; Z85.3 Personal history of malignant neoplasm of breast; U09.9 Post COVID-19 condition, unspecified
CPT/HCPCS: 36415; 36591; 71250; 85610; 94060; 94621; 94726; 94729

== ENCOUNTER → 2022-03-04 | Outpatient (CLI) | payer OTHER ==
[~2022-03-04] MED LIST changes: +CATHETER FLUSH 10 ML SYR IV PRN; +HOLD METFORMIN - RECEIVED CONTRAST 20 ML VIAL IV SCH; +IOHEXOL 350 MG/ML 100 ML (OMNIPAQUE 350) VIAL IV ONE; +NS 100 ML (IVPB) BAG IV ONE; -RT-ALBUTEROL SULF 2.5 MG/3 ML PRE-MIX VIAL INH ONE
[2022-03-04 10:09] LABS: CREATININE SERUM 0.77 MG/DL (0.60-1.30)
--- NOTE | 2022-03-04 13:08 | Diagnostic Imaging Report ---
PROCEDURE: CT angiography of the head and CT angiography of the neck with and without contrast. TECHNIQUE: Contiguous noncontrast images were obtained from the skull base through the vertex. After intravenous contrast administration, helical CT angiography of the neck was performed. Source data was reformatted into 3D MIP projections. Delayed post contrast acquisition was also obtained. Auto Exposure Controls were utilized during the CT exam to meet ALARA standards for radiation dose reduction. INDICATION: Left visual loss as well as new right eye visual complaints. History of breast cancer and squamous cell carcinoma. Correlation limited and noncontrasted CT abdomen head and neck dated 12/17/2017 CT HEAD: There is no intracranial hemorrhage, hydrocephalus, edema, mass or mass effect. No abnormal enhancement. CT ANGIO NECK: The branching pattern of the great vessels unremarkable. The right vertebral artery dominant. The left is small but nonfocal and nonpathologic. The bilateral common carotids, the carotid bulbs, the major external carotids and the cervical internal carotid branches are all widely patent. No significant plaque or stenosis. CT ANGIOGRAM HEAD: The intradural vertebral arteries patent. The basilar is somewhat small but nonfocal. theatre instructor are predominantly via the anterior circulation. There is mild non-stenosing intracranial carotid atherosclerotic plaques. Intracranial ICAs showed no significant stenosis. The A1 segments, the a-common and the anterior cerebral arteries as well as the bilateral middle cerebral arterial segments and primary branches widely patent. No significant stenosis, thrombus, large vessel occlusion, aneurysm or vascular malformation. IMPRESSION: 1. Mild non-stenosing intracranial atherosclerotic calcified carotid plaques. 2. No hemodynamic significant stenosis in the neck or head. No thrombus or large vessel occlusion. No aneurysm. 3. No findings of metastatic disease. No acute appearing pathology. Dictated by: Dictated on workstation # [id number]
== END ==
LOC: RAD 10:15
PROVIDERS: ATTEND Internal Medicine Interventional Cardiology
DX: I65.23 Occlusion and stenosis of bilateral carotid arteries (principal); S05.40XA Penetrating wound of orbit with or without foreign body, unspecified eye, initial encounter; R60.0 Localized edema; U09.9 Post COVID-19 condition, unspecified; Z85.3 Personal history of malignant neoplasm of breast
CPT/HCPCS: 36415; 70496; 70498; 82565; 84520

== ENCOUNTER → 2022-04-11 | Outpatient (CLI) | payer OTHER ==
[~2022-04-11] VITALS: Wt 108.2 kg
[~2022-04-11] MED LIST changes: -CATHETER FLUSH 10 ML SYR IV PRN; -HOLD METFORMIN - RECEIVED CONTRAST 20 ML VIAL IV SCH; -IOHEXOL 350 MG/ML 100 ML (OMNIPAQUE 350) VIAL IV ONE; -NS 100 ML (IVPB) BAG IV ONE
[2022-04-11 13:20] VITALS: BP 109/76
== END ==
LOC: SDC 13:01
PROVIDERS: ATTEND Internal Medicine Hematology & Oncology
DX: D68.59 Other primary thrombophilia (principal); Z85.3 Personal history of malignant neoplasm of breast; Z79.01 Long term (current) use of anticoagulants
CPT/HCPCS: 96523

== ENCOUNTER → 2022-04-11 | Outpatient (CLI) | payer OTHER ==
--- NOTE | 2022-04-11 13:54 | Diagnostic Imaging Report ---
INDICATION: Six-month follow up left breast architectural distortion. CORRELATION is made with prior mammograms dating back 2019. Unilateral left 2-D and 3-D diagnostic mammography was performed with CAD. Scattered fibronodular densities in the left breast are noted. The area of questionable architectural distortion upper outer left breast is stable. No new mass is detected. No malignant-appearing microcalcifications are seen. There are vascular calcifications. Left axilla is unremarkable. IMPRESSION: BI-RADS Category 3 Stable left mammogram. This now shows 18 months of stability. A final six-month follow-up is recommended to show continued stability. ACR BI-RADS Category 3: Probably benign findings. Result letter will be mailed to the patient. Note: At least 10% of breast cancer is not imaged by mammography. Dictated by: Dictated on workstation # [id number]
== END ==
LOC: RAD 12:45
PROVIDERS: ATTEND Nurse Practitioner Adult Health
DX: R92.8 Other abnormal and inconclusive findings on diagnostic imaging of breast (principal)
CPT/HCPCS: 77065; G0279

== ENCOUNTER → 2022-04-19 | Outpatient (CLI) | payer OTHER ==
--- NOTE | 2022-04-19 16:04 | Diagnostic Imaging Report ---
INDICATION: Severe back pain. TIME OF EXAM: 3:15 p.m. FINDINGS: Three views of the lumbar spine were obtained. Curvature and alignment of the lumbar spine is normal. Vertebral body heights are maintained. No acute compression fracture is seen. There is multilevel degenerative disc disease with variable disc space narrowing and marginal spurring. There is lower lumbar facet arthropathy. IVC filter is noted in place. IMPRESSION: Lumbar spondylosis. No acute bony abnormality is detected. Dictated by: Dictated on workstation # [id number]
--- NOTE | 2022-04-19 16:08 | Diagnostic Imaging Report ---
INDICATION: Back pain. TIME OF EXAM: 3:16 p.m. FINDINGS: Three views of the sacroiliac joints were obtained. No ankylosis is seen. No abnormal sclerosis or osseous erosive changes are seen. IMPRESSION: Unremarkable sacroiliac joints. Dictated by: Dictated on workstation # [id number]
== END ==
LOC: RAD 14:55
PROVIDERS: ATTEND Nurse Practitioner Family
DX: M47.816 Spondylosis without myelopathy or radiculopathy, lumbar region (principal)
CPT/HCPCS: 72100; 72202

== ENCOUNTER → 2022-05-09 | Outpatient (CLI) | payer OTHER ==
--- NOTE | 2022-05-09 11:00 | Diagnostic Imaging Report ---
CLINICAL INDICATION: Patient with low back and right hip pain. No known injury. Patient with history of breast cancer. EXAM: MRI of the lumbar spine without contrast. Sequences include sagittal T2, sagittal T1, sagittal T2 fat-sat, and axial T2. COMPARISON: MRI of the lumbar spine without contrast dated 11/14/2015. FINDINGS: There is no acute lumbar spine fracture. There are hypertrophic spurs involving the lumbar spine. There is lower lumbar spine facet arthropathy/hypertrophy. The visualized portions of the distal thoracic spinal cord, conus medullaris, and cauda equina nerve roots are unremarkable. The conus medullaris tip is seen at the L2-L3 intervertebral level. There is no significant paraspinal soft tissue abnormality. T12-L1: Stable mild diffuse disk bulge. There is no significant central canal or neural foramen narrowing. L1-L2: There is interval development of grade 1 retrolisthesis of L1 on L2. There is progression of a diffuse disk bulge with superimposed small central posterior disk extrusion/herniation. There is severe bilateral facet arthropathy/hypertrophy which has progressed. There is mild to moderate central canal stenosis which has progressed. There is mild left neural foramen narrowing and no significant right neural foramen narrowing. L2-L3: There is interval development of subtle grade 1 retrolisthesis of L2 on L3. There is interval development of a diffuse disk bulge and moderate loss of disk space height. There is severe bilateral facet arthropathy/hypertrophy which has progressed. There is mild central canal stenosis which has progressed. There is no significant right neural foramen narrowing and moderate left neural foramen narrowing which has progressed. L3-L4: There is severe bilateral facet arthropathy/hypertrophy again noted. Stable diffuse disk bulge with mild loss of disk space height. There is moderate to severe central canal stenosis. There is no significant neural foramen narrowing. L4-L5: There is diffuse disk bulge with slight decrease posterior disk herniation component. Again seen far right lateral disk spurs and this is into the right foraminal region which is slightly progressed. There is stable mild to moderate right neural foramen narrowing and no significant left neural foramen narrowing. There is moderate central canal stenosis which is slightly improved in interim due to slight decreased posterior disk herniation component. L5-S1: There is moderate bilateral facet arthropathy. There is mild diffuse disk bulge with moderate loss of disk space height again seen. There is mild bilateral neural foramen narrowing which is not significantly changed. IMPRESSION: There is multilevel lumbar spine degenerative disk disease which has progressed at the L1-L2 and L2-L3 levels, slightly improved at the L4-L5 level. This is described above. Dictated by: Dictated on workstation # [id number]
== END ==
LOC: RAD 08:24
PROVIDERS: ATTEND Family Medicine
DX: M47.816 Spondylosis without myelopathy or radiculopathy, lumbar region (principal); M47.817 Spondylosis without myelopathy or radiculopathy, lumbosacral region; M51.25 Other intervertebral disc displacement, thoracolumbar region; M51.26 Other intervertebral disc displacement, lumbar region; M51.27 Other intervertebral disc displacement, lumbosacral region; M51.36 Other intervertebral disc degeneration, lumbar region; M51.37 Other intervertebral disc degeneration, lumbosacral region; M48.061 Spinal stenosis, lumbar region without neurogenic claudication; M43.16 Spondylolisthesis, lumbar region; M48.07 Spinal stenosis, lumbosacral region
CPT/HCPCS: 72148

== ENCOUNTER → 2022-06-13 | Day surgery (SDC) | payer OTHER ==
[~2022-06-13] VITALS: Ht 177.8 cm; Wt 108.2 kg
[2022-06-13 15:22] VITALS: BP 104/72
[2022-06-13 15:47] LABS: INR 1.9 (0.8-1.4); PROTHROMBIN TIME PATIENT 22.7 SEC (12.2-14.7)
== END ==
LOC: SDC 15:04
PROVIDERS: ATTEND Internal Medicine Hematology & Oncology
DX: I26.99 Other pulmonary embolism without acute cor pulmonale (principal)
CPT/HCPCS: 36415; 36591; 85610

== ENCOUNTER → 2022-06-20 | Outpatient (CLI) | payer OTHER ==
--- NOTE | 2022-06-20 15:47 | Diagnostic Imaging Report ---
CLINICAL INDICATION: Patient with right hip pain. EXAM: X-ray of the right hip, AP and frog-leg views. COMPARISON: X-ray of the right hip dated 09/27/2021. FINDINGS: Again seen is hypertrophic spurring of the superior right acetabular rim which may be seen with pincer-type femoroacetabular impingement. Stable small degenerative spurs involving the right femoral head/neck junction region. Visualized right sacroiliac joints are unremarkable. IMPRESSION: 1: There is no acute fracture or dislocation. 2: There is hypertrophic spurring involving the right acetabular roof which may be seen with pincer-type femoral acetabular impingement. 3: There is degenerative disease of the right hip. Dictated by: Dictated on workstation # [id number]
== END ==
LOC: RAD 14:22
PROVIDERS: ATTEND Neurological Surgery
DX: M76.9 Unspecified enthesopathy, lower limb, excluding foot (principal)
CPT/HCPCS: 73502

== ENCOUNTER → 2022-07-15 | Outpatient (CLI) | payer OTHER ==
[~2022-07-15] MED LIST changes: +ALBU8.5H6 IH; -RT-ALBUINH IH
== END | disposition home or self-care (01) ==
LOC: SDC 10:10
PROVIDERS: ATTEND Internal Medicine Hematology & Oncology
DX: Z53.9 Procedure and treatment not carried out, unspecified reason (principal)

== ENCOUNTER 2022-09-20 09:41 | Emergency (ER) | payer OTHER ==
[~2022-09-20] VITALS: Ht 177.8 cm; Wt 106.6 kg
[2022-09-20] MEDS ORDERED: ANTACID SUSP 30 ML UDC (MYLANTA) PO ONE (10:15)
[2022-09-20] MEDS ORDERED: SUCRALFATE 1 GM (CARAFATE) TAB PO ONE (10:15)
[2022-09-20] MEDS ORDERED: LIDOCAINE 2% VISCOUS 15 ML UDC PO ONE (10:15)
--- NOTE | 2022-09-20 10:27 | ED Chest Pain ---
General Chief Complaint: Chest Pain Stated Complaint: CHEST PAINS Nursing Triage Note: PT AMBULATE TO ROOM 01 WITHOUT DIFFICULTY WITH C/O EPIGASTRIC PAIN AND STERNAL CHEST PAIN STARTING LAST NIGHT. PT REPORTS TAKING OTC HOME MEDS WITHOUT RELIEF. PT BURPING ALOT DURING TRIAGE. Source: patient Exam Limitations: no limitations History of Present Illness Date Seen by Provider: Sep 20, 2022 Time Seen by Provider: 10:05 Initial Comments Patient is a 61-year-old female who presents to the emergency room today with a chief complaint of mid epigastric lower chest discomfort that feels "like a fist in my esophagus." She states onset of discomfort was yesterday in the afternoon. She took some GI remedies including Maalox/Mylanta without much relief of symptoms. She tells me she has a significant past medical history to include factor V Leiden deficiency, chronic anticoagulation on warfarin, history of breast cancer, small cell, hypertension, strong family history of coronary artery disease, multiple prior abdominal surgeries, gastroparesis. She has formally seen Dr. Balderas, GI specialist at [facility] in [place] and was on Reglan and Carafate for similar symptoms. She became concerned today because her mother had dyspepsia/indigestion significant coronary artery disease diagnosed. Patient is not a smoker. She denies fevers or chills or productive cough. She works as a nurse in OB services. She did have a heart cath 10 years ago with clean coronary arteries. Nothing makes the pain any better or any worse. No significant associated symptoms. Timing/Duration: 24 hours Severity/Quality: moderate, pressure ("like a fist in my esophagus") Allergies and Home Medications Allergies Coded Allergies: NSAIDS (Non-Steroidal Anti-Inflamma (Verified Allergy, Severe, ANAPHYLAXIS, 03/03/17) Sulfa (Sulfonamide Antibiotics) (Unverified Allergy, Intermediate, SWELLIN G, 03/03/17) amoxicillin (Unverified Allergy, Intermediate, HIVES, 03/03/17) Iodinated Contrast Media (Unverified Allergy, Unknown, 05/30/14) atorvastatin (Unverified Allergy, Unknown, 12/19/14) Uncoded Allergies: DIFINITY DYE (Allergy, Unknown, 05/30/14) Patient Home Medication List Home Medication List Reviewed: Yes Albuterol Sulfate (Ventolin Hfa) 1 Puff Puff, 2 PUFF IH Q4H PRN for WHEEZING, (Reported) Entered as Reported by: SHANTEL WINSLOW on 01/03/21 1250 Alprazolam (Xanax) 0.5 Mg Tablet, 0.5 MG PO HS, (Reported) Entered as Reported by: SHANTEL WINSLOW on 06/25/16 1359 Bimatoprost (Lumigan) 2.5 Ml Drops, 1 DROP OU HS, (Reported) Entered as Reported by: SHANTEL WINSLOW on 01/03/21 1250 Buspirone HCl (Buspirone HCl) 15 Mg Tablet, 15 MG PO HS, (Reported) Entered as Reported by: SHANTEL WINSLOW on 06/25/16 1359 Cholecalciferol (Vitamin D3) (Vitamin D3) 125 Mcg Tablet, 125 MCG PO DAILY, (Reported) Entered as Reported by: SHANTEL WINSLOW on 01/03/21 1250 Dorzolamide HCl/Timolol Maleat (Cosopt Eye Drops) 10 Ml Drops, 1 DROP OU BID, (Reported) Entered as Reported by: SHANTEL WINSLOW on 01/03/21 1250 Fluticasone Propionate (Fluticasone Propionate) 16 Gm [place].susp, 1 SPRAY NS DAILY, (Reported) Entered as Reported by: SHANTEL WINSLOW on 01/03/21 1250 Fluticasone/Vilanterol (Breo Ellipta 200-25 Mcg INH) 1 Each Blst.w.dev, 1 PUFF IH DAILY, (Reported) Entered as Reported by: SHANTEL WINSLOW on 01/03/21 1250 Gabapentin (Neurontin) 300 Mg Capsule, 300 MG PO HS, (Reported) Entered as Reported by: SHANTEL WINSLOW on 01/03/21 1250 Metoprolol Succinate (Metoprolol Succinate) 50 Mg Tab.er.24h, 50 MG PO HS, (Reported) Entered as Reported by: SHANTEL WINSLOW on 01/03/21 1250 Montelukast Sodium (Montelukast Sodium) 10 Mg Tablet, 10 MG PO DAILY, (Reported) Entered as Reported by: SHANTEL WINSLOW on 01/03/21 1250 Nitrofurantoin Macrocrystal (Nitrofurantoin) 100 Mg Capsule, 100 MG PO DAILY, (Reported) Entered as Reported by: SHANTEL WINSLOW on 01/03/21 1250 Omeprazole Magnesium (Prilosec Otc) 20 Mg Tablet.dr, 20 MG PO DAILY, (Reported) Entered as Reported by: SHANTEL WINSLOW on 06/25/16 1400 Tolterodine Tartrate (Tolterodine Tartrate ER) 4 Mg Cap.er.24h, 8 MG PO DAILY, (Reported) Entered as Reported by: SHANTEL WINSLOW on 01/03/21 1250 Warfarin Sodium (Warfarin Sodium) 4 Mg Tablet, 4 MG PO MoWeThSa, (Reported) Entered as Reported by: SHANTEL WINSLOW on 01/03/21 1250 Warfarin Sodium (Warfarin Sodium) 4 Mg Tablet, 2 MG PO SuTuFr, (Reported) Entered as Reported by: SHANTEL WINSLOW on 01/03/21 1250 [Magnesium/Calcium/Zi] , 1 TAB PO HS, (Reported) Entered as Reported by: KWAME THOMAS on 03/02/13 1603 Review of Systems Review of Systems Constitutional: see HPI EENTM: No Symptoms Reported Respiratory: No Symptoms Reported, Other (pthe pain make her feel mildly SOB) Cardiovascular: Chest Pain (lower chest - more epigastric distress/discomfort) Gastrointestinal: Abdomen Distended, Other ("belching alot") Genitourinary: No Symptoms Reported Musculoskeletal: no symptoms reported Skin: no symptoms reported Psychiatric/Neurological: No Symptoms Reported All Other Systems Reviewed Negative Unless Noted: Yes Past Dhdyotg-Qubdvi-Pcgrzg Hx Patient Social History Tobacco Use?: No Smoking Status: Never a Smoker Smokeless Tobacco Frequency: Never a User Use of E-Cig and/or Vaping dev: No Use of E-Cig and/or Vaping Tone: Never a User Substance use?: No Alcohol Use?: No Pt feels they are or have been: No Immunizations Up To Date COVID19 Vaccine Silo Filler: MODERNA Seasonal Allergies Seasonal Allergies: Yes Past Medical History Surgeries: Yes (PORT VENA CAVA FILTER, SIMOID colectomy, port, SCC) Abdominal, Adenoidectomy, Appendectomy, Section, Gallbladder, Hysterectomy, Tonsillectomy Respiratory: Yes Asthma Cardiac: Yes Deep Vein Thrombosis, Hypertension, Irregular Heartbeat Neurological: No Reproductive Disorders: No INDUSTRIAL ENG History: Hysterectomy Genitourinary: No Gastrointestinal: Yes (DYSPHAGIA) Diverticulosis Musculoskeletal: No Endocrine: Yes (nodules on thyroid) HEENT: Yes Glaucoma Cancer: Yes Breast What Type of Treatment Did You: Chemotherapy, Radiation Psychosocial: No Integumentary: No 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 0.0oz. 102.508916ru; 33.00 BMI Method:Stated General Appearance: No Apparent Distress, WD/WN HEENT: PERRL/EOMI Neck: Normal Inspection Respiratory: Lungs Clear, Normal Breath Sounds, No Accessory Muscle Use, No Respiratory Distress Cardiovascular: Regular Rate, Rhythm Gastrointestinal: Soft, Tenderness (mild epigastric tenderness; "bloated" abdomen. normal BS) Extremity: Normal Capillary Refill, Normal Inspection, Normal Range of Motion, Non Tender, No Calf Tenderness, No Pedal Edema Neurologic/Psychiatric: Alert, Oriented x3, No Motor/Sensory Deficits, Normal Mood/Affect, psychiatric clinician II-XII Norm as Tested Skin: Normal Color, Warm/Dry Progress/Results/Core Measures Results/Orders Lab Results Laboratory Tests Test 09/20/22 10:19 Range/Units White Blood Count 7.8 4.3-11.0 10^3/uL Red Blood Count 4.41 3.80-5.11 10^6/uL Hemoglobin 13.7 11.5-16.0 g/dL Hematocrit 40 35-52 % Mean Corpuscular Volume 91 80-99 fL Mean Corpuscular Hemoglobin 31 25-34 pg Mean Corpuscular Hemoglobin Concent 34 32-36 g/dL Red Cell Distribution Width 12.0 10.0-14.5 % Platelet Count 204 130-400 10^3/uL Mean Platelet Volume 10.1 9.0-12.2 fL Immature Granulocyte % (Auto) 0 % Neutrophils (%) (Auto) 61 42-75 % Lymphocytes (%) (Auto) 27 12-44 % Monocytes (%) (Auto) 9 0-12 % Eosinophils (%) (Auto) 2 0-10 % Basophils (%) (Auto) 1 0-10 % Neutrophils # (Auto) 4.8 1.8-7.8 10^3/uL Lymphocytes # (Auto) 2.1 1.0-4.0 10^3/uL Monocytes # (Auto) 0.7 0.0-1.0 10^3/uL Eosinophils # (Auto) 0.2 0.0-0.3 10^3/uL Basophils # (Auto) 0.0 0.0-0.1 10^3/uL Immature Granulocyte # (Auto) 0.0 0.0-0.1 10^3/uL Prothrombin Time 42.5 H 12.2-14.7 SEC INR Comment 4.5 H 0.8-1.4 Activated Partial Thromboplast Time 64 H 24-35 SEC Sodium Level 138 135-145 MMOL/L Potassium Level 4.4 3.6-5.0 MMOL/L Chloride Level 105 98-107 MMOL/L Carbon Dioxide Level 23 21-32 MMOL/L Anion Gap 10 5-14 MMOL/L Blood Urea Nitrogen 23 H 7-18 MG/DL Creatinine 0.78 0.60-1.30 MG/DL Estimat Glomerular Filtration Rate 85 BUN/Creatinine Ratio 29 Glucose Level 101 70-105 MG/DL Calcium Level 8.8 8.5-10.1 MG/DL Corrected Calcium 9.1 8.5-10.1 MG/DL Magnesium Level 2.1 1.6-2.4 MG/DL Total Bilirubin 0.5 0.1-1.0 MG/DL Aspartate Amino Transf (AST/SGOT) 20 5-34 U/L Alanine Aminotransferase (ALT/SGPT) 25 0-55 U/L Alkaline Phosphatase 74 40-136 U/L Myoglobin 39.8 10.0-92.0 NG/ML Troponin I < 0.028 <0.028 NG/ML Total Protein 6.9 6.4-8.2 GM/DL Albumin 3.6 3.2-4.5 GM/DL My Orders Orders - DOUGIE SINGH MD Cbc With Automated Diff (09/20/22 09:54) Magnesium (09/20/22 09:54) Chest 1 View, Ap/Pa Only (09/20/22 09:54) Ekg Tracing (09/20/22 09:54) Comprehensive Metabolic Panel (09/20/22 09:54) Myoglobin Serum (09/20/22 09:54) Protime With Inr (09/20/22 09:54) Partial Thromboplastin Time (09/20/22 09:54) O2 (09/20/22 09:54) Monitor-Rhythm Ecg Trace Only (09/20/22 09:54) Lipid Panel (09/21/22 06:00) Ed Iv/Invasive Line Start (09/20/22 09:54) Troponin I [place] (09/20/22 09:54) Sucralfate Tablet (Carafate Tablet) (09/20/22 10:15) Antacid Suspension (Mylanta Suspension (09/20/22 10:15) Lidocaine 2% Viscous 15 Ml (Xylocaine Vi (09/20/22 10:15) Pantoprazole Injection (Protonix Injecti (09/20/22 12:00) Medications Given in ED Current Medications Medications Dose Ordered Sig/Ted Route Start Time Stop Time Status Last Admin Dose Admin Al Hydrox/Mg Hydrox/Simethicone 30 ml ONCE ONCE PO 09/20/22 10:15 09/20/22 10:16 DC 09/20/22 10:28 30 ML Lidocaine HCl 5 ml ONCE ONCE PO 09/20/22 10:15 09/20/22 10:16 DC 09/20/22 10:28 5 ML Pantoprazole 40 mg ONCE ONCE IV 09/20/22 12:00 09/20/22 12:01 DC 09/20/22 12:19 40 MG Sucralfate 1 gm ONCE ONCE PO 09/20/22 10:15 09/20/22 10:16 DC 09/20/22 10:28 1 GM Vital Signs/I&O 09/20/22 09/20/22 09:50 09:50 Temp 35.8 Pulse 67 Resp 19 B/P (MAP) 124/94 (104) Pulse Ox 100 O2 Delivery Room Air Room Air Blood Pressure Mean: 104 Progress Progress Note : Time: 12:28 Progress Note Patient seen and evaluated, work-up today includes cardiac protocol with coagulation profile, the patient is on warfarin. Chest x-ray shows no abnormalities, EKG is pristine. She was treated with a GI cocktail and had some relief of her symptoms down to a "2". At the time of reevaluation her discomfort is increasing again, she feels quite bloated and the belching has returned. She states in the past Dr. Eric Gratn her GI doctor treated her with some Reglan. We will add this to her medications. She was also on Carafate. She is quite comfortable with the work-up and plan of care. She will follow-up with her primary care physician. We will also probably touch base again with her GI specialist. Advised her to return to the emergency room for any new concerns or worsening symptoms. She verbalized understanding. All questions are sought and answered. Initial ECG Impression Date: Sep 20, 2022 Initial ECG Impression Time: 10:00 Initial ECG Rate: 65 Initial ECG Rhythm: Normal Sinus Initial ECG Intervals: Normal Initial ECG Impression: Normal Diagnostic Imaging Diagonstic Imaging: Xray Comments [facility] [place], [place] NAME: [facility] REC#: [id number] PT STATUS: REG ER : 1960 PHYSICIAN: DOUGIE SINGH MD ADMIT DATE: 09/20/22/ER Draft Date of Exam:09/20/22 CHEST 1 VIEW, AP/PA ONLY INDICATION: Chest pain. COMPARISON: 02/13/2020. FINDINGS: Left subclavian catheter at the upper SVC stable. The lungs clear. No failure pattern, effusion or pneumothorax. IMPRESSION: No acute appearing abnormality. Dictated on workstation # [id number] Dict: 09/20/22 1025 Trans: 09/20/22 1028 [id number] Interpreted by: MARYCHUY CAZARES Electronically signed by: Departure Impression Primary Impression: Dyspepsia Additional Impressions: h/o gastroparesis Chest pain Qualified Codes: R07.89 - Other chest pain Disposition: 01 HOME, SELF-CARE Condition: Improved Departure-Patient Inst. Decision time for Depature: 12:34 Referrals: LAINEY RAY MD (PCP/Family) Primary Care Physician Patient Instructions: Dyspepsia (DC), Gastroparesis (Delayed Gastric Emptying) Add. Discharge Instructions: Start taking the Reglan every 6-8 hours as needed for stomach upset. Carafate 4 times a day, 30 minutes before meals. Continue your acid seo professional. If your chest/abdominal discomfort worsens or you develop new, concerning symptoms please come back to the emergency room for reevaluation. You should call and follow-up with Dr. Ray next week. Scripts Sucralfate (Carafate) 1 Gram Tablet 1 GM PO QIDACHS, #60 TAB Prov: DOUGIE SINGH MD 09/20/22 Metoclopramide HCl (Reglan) 10 Mg Tablet 10 MG PO Q8H PRN for indigestion, #30 TAB Prov: DOUGIE SINGH MD 09/20/22 Work/School Note: Work Release Form Date Seen in the Emergency Department: Sep 20, 2022 Return to Work: Sep 21, 2022 Copy Copies To 1: LAINEY RAY MD, KATHRYN M MD Sep 20, 2022 10:27
--- NOTE | 2022-09-20 10:28 | Diagnostic Imaging Report ---
INDICATION: Chest pain. COMPARISON: 02/13/2020. FINDINGS: Left subclavian catheter at the upper SVC stable. The lungs clear. No failure pattern, effusion or pneumothorax. IMPRESSION: No acute appearing abnormality. Dictated by: Dictated on workstation # [id number]
[2022-09-20 10:31] LABS: BASOPHILS % (AUTO) 1 % (0-10); EOSINOPHILS # (AUTO) 0.2 10^3/uL (0.0-0.3); EOSINOPHILS % (AUTO) 2 % (0-10); HEMATOCRIT 40 % (35-52); HEMOGLOBIN 13.7 g/dL (11.5-16.0); LYMPHOCYTES # (AUTO) 2.1 10^3/uL (1.0-4.0); LYMPHOCYTES % (AUTO) 27 % (12-44); MEAN CORPUSCULAR HEMOGLOBIN 31 pg (25-34); MEAN CORPUSCULAR HGB CONC 34 g/dL (32-36); MEAN CORPUSCULAR VOLUME 91 fL (80-99); MEAN PLATELET VOLUME 10.1 fL (9.0-12.2); MONOCYTES # (AUTO) 0.7 10^3/uL (0.0-1.0); MONOCYTES % (AUTO) 9 % (0-12); NEUTROPHILS # (AUTO) 4.8 10^3/uL (1.8-7.8); NEUTROPHILS % (AUTO) 61 % (42-75); PLATELET COUNT 204 10^3/uL (130-400); WHITE BLOOD COUNT 7.8 10^3/uL (4.3-11.0)
[2022-09-20 10:40] LABS: ALBUMIN 3.6 GM/DL (3.2-4.5)
[2022-09-20 10:41] LABS: INR 4.5 (0.8-1.4); POTASSIUM 4.4 MMOL/L (3.6-5.0); PROTHROMBIN TIME PATIENT 42.5 SEC (12.2-14.7)
[2022-09-20 10:42] LABS: CALCIUM 8.8 MG/DL (8.5-10.1)
[2022-09-20 10:43] LABS: TOTAL PROTEIN 6.9 GM/DL (6.4-8.2)
[2022-09-20 10:45] LABS: BILIRUBIN,TOTAL 0.5 MG/DL (0.1-1.0)
[2022-09-20 10:47] LABS: CREATININE SERUM 0.78 MG/DL (0.60-1.30)
[2022-09-20 10:49] LABS: MAGNESIUM 2.1 MG/DL (1.6-2.4)
[2022-09-20] MEDS ORDERED: PANTOPRAZOLE 40 MG (PROTONIX) VIAL IV ONE (12:00)
[2022-09-20] MEDS ORDERED: METO-310 PO (12:36)
[2022-09-20] MEDS ORDERED: SUCR1TAB36 PO (12:36)
[2022-09-20] MEDS ORDERED: diphenhydrAMINE 50 MG/ML INJ (BENADRYL) IVP STA (12:37)
[2022-09-20] MEDS ORDERED: SIMETHICONE 80 MG (MYLICON) CHEW PO STA (12:37)
[2022-09-20] MEDS ORDERED: METOCLOPRAMIDE INJ 10 MG/2 ML (REGLAN) IVP ONE (12:45)
[2022-09-20 14:49] VITALS: BP 137/67
== END 2022-09-20 13:00 | disposition home or self-care (01) ==
LOC: EDUNIT# 09:41 → ER 09:43
DX: R10.13 Epigastric pain (principal); R07.89 Other chest pain; R79.1 Abnormal coagulation profile; Z90.49 Acquired absence of other specified parts of digestive tract; Z87.19 Personal history of other diseases of the digestive system; Z98.61 Coronary angioplasty status; Z79.01 Long term (current) use of anticoagulants
CPT/HCPCS: 36415; 71045; 80053; 83735; 83874; 84484; 85025; 85610; 85730; 93005; 93041

== ENCOUNTER → 2022-10-07 | Outpatient (CLI) | payer OTHER ==
[~2022-10-07] MED LIST changes: +METO-310 PO; +SUCR1TAB36 PO
--- NOTE | 2022-10-07 16:44 | Diagnostic Imaging Report ---
PROCEDURE: US Thyroid. TECHNIQUE: Multiple real-time grayscale images were obtained of the thyroid in various projections. INDICATION: Goiter. Comparison is made with prior thyroid ultrasound from 02/11/2019. FINDINGS: Right lobe of the thyroid measures 5.2 x 1.6 x 1.4 cm, and the left lobe measures 5.4 x 2.0 x 2.3 cm. Isthmus is 4 mm in thickness. Partially calcified nodule in the right lobe measures 8 mm x 7 mm x 8 mm, stable to perhaps slightly smaller on today's study when compared with prior. There is a slightly lobulated hypoechoic nodule in the upper pole of the left lobe measuring approximately 9 mm x 7 mm x 10 mm. This was not well seen on prior exam. Nodule in the mid aspect measures 2.2 x 1.3 x 1.9 cm. This compares with 2.1 x 1.5 x 1.4 cm on prior exam. Subcentimeter cystic nodule in the lower pole of the left lobe is approximately 8 mm x 5 mm x 7 mm. This appears to be fairly stable. IMPRESSION: Bilateral thyroid nodules. Dominant nodule is on the left in the mid aspect, similar to perhaps minimally larger in the last 3-1/2 years. This is reassuring. Continued follow-up could be performed. Dictated by: Dictated on workstation # [id number]
== END ==
LOC: RAD 09:22
PROVIDERS: ATTEND Family Medicine
DX: E04.2 Nontoxic multinodular goiter (principal); Z85.3 Personal history of malignant neoplasm of breast
CPT/HCPCS: 76536

== ENCOUNTER → 2022-10-11 | Outpatient (CLI) | payer OTHER ==
--- NOTE | 2022-10-11 15:55 | Diagnostic Imaging Report ---
INDICATION: Right breast carcinoma and left breast architectural distortion. Study is performed for follow-up. CORRELATION is made prior mammograms 10/04/2021 and 04/11/2022. 2-D and 3-D bilateral diagnostic mammography was performed with CAD. Scattered fibroglandular densities are identified bilaterally. Architectural distortion upper outer left breast is stable. Post-therapeutic changes right breast are stable. There are scattered benign calcifications. No mass or malignant-appearing microcalcific tissues are seen. IMPRESSION: BI-RADS Category 2 Stable bilateral mammograms with no mammographic features suspicious for malignancy. Patient may return to routine annual screening mammography. ACR BI-RADS Category 2: Benign findings. Result letter will be mailed to the patient. Note: At least 10% of breast cancer is not imaged by mammography. Dictated by: Dictated on workstation # [id number]
== END ==
LOC: RAD 14:13
PROVIDERS: ATTEND Nurse Practitioner Adult Health
DX: C50.911 Malignant neoplasm of unspecified site of right female breast (principal); N64.89 Other specified disorders of breast
CPT/HCPCS: 77066; G0279; 77062

== ENCOUNTER → 2022-11-25 | Outpatient (CLI) | payer OTHER ==
[2022-11-25 13:00] VITALS: BP 113/71
== END ==
LOC: SDC 12:49
PROVIDERS: ATTEND Internal Medicine Hematology & Oncology
DX: D68.59 Other primary thrombophilia (principal); Z79.01 Long term (current) use of anticoagulants; Z85.3 Personal history of malignant neoplasm of breast
CPT/HCPCS: 96523

== ENCOUNTER → 2022-12-11 | Outpatient (CLI) | payer OTHER ==
[~2022-12-11] MED LIST changes: +HOLD METFORMIN - RECEIVED CONTRAST 20 ML VIAL IV SCH; +IOHEXOL 350 MG/ML 100 ML (OMNIPAQUE 350) VIAL IV ONE; +NS 100 ML (IVPB) BAG IV ONE
[2022-12-11 12:12] LABS: CREATININE SERUM 0.88 MG/DL (0.60-1.30)
--- NOTE | 2022-12-11 15:49 | Diagnostic Imaging Report ---
Barium swallow. Indication: Raspy voice, difficulty swallowing. There are no prior exams available for comparison. The professional sports scout film of the chest shows no evidence for an acute abnormality. A double contrast study was performed. The patient swallowed the contrast material without difficulty. There was no delay or obstruction to pass the contrast through the esophagus. There are a few tertiary contractions noted. These generally indicate ineffective peristalsis. There was a small hiatal hernia. There were also strips of gastroesophageal reflux to the mid thorax. There is no sign of esophagitis however. The stomach shows good distensibility and motility. There is no mass or ulceration evident. The duodenal bulb and proximal small bowel are unremarkable for an acute abnormality. There are 2 duodenal diverticula measuring approximately 2 to 3 cm in size. Impression: 1. There is a hiatal hernia with gastroesophageal reflux but there is no evidence for esophagitis. 2. There is no mass or stricture involving the esophagus. 3. The stomach, duodenum, proximal small bowel are unremarkable for an acute abnormality. Dictated by: Dictated on workstation # [id number]
--- NOTE | 2022-12-11 16:15 | Diagnostic Imaging Report ---
PROCEDURE: CT chest without contrast. TECHNIQUE: Multiple contiguous axial images were obtained through the chest without the use of intravenous contrast. Auto Exposure Controls were utilized during the CT exam to meet ALARA standards for radiation dose reduction. INDICATION: Dysphagia COMPARISON: 02/28/2022 and 02/13/2020 FINDINGS: Left-sided Port-A-Cath is partially visualized with the distal tip terminating within the mid aspect of the superior vena cava. No significant adenopathy within the chest. No aneurysmal dilatation of the thoracic aorta. The heart is within normal limits in size. No significant pericardial effusion. Tiny hiatal hernia. No pleural effusion. The trachea is patent. No pneumothorax. 3 mm right upper lobe pulmonary nodule is unchanged since 2019, and benign. No new suspicious pulmonary opacity or nodule. Cholecystectomy. The minimally visualized upper abdomen is unremarkable. No acute osseous abnormality with mild scattered osseous degenerative changes present. IMPRESSION: No acute abnormality. Left-sided Port-A-Cath is in place. Additional postsurgical and chronic findings as above. Dictated by: Dictated on workstation # [id number]
--- NOTE | 2022-12-11 16:48 | Diagnostic Imaging Report ---
PROCEDURE: CT neck soft tissue with contrast. TECHNIQUE: Multiple contiguous axial images were obtained through the neck after the administration of contrast. Auto Exposure Controls were utilized during the CT exam to meet ALARA standards for radiation dose reduction. INDICATION: Fullness in the throat. Dysphagia. History of breast cancer. COMPARISON: 03/04/2022. FINDINGS: The posterior nasopharynx and oropharynx demonstrate appropriate symmetry. There is no displacement of the parapharyngeal fat planes. There is no abnormal process evident within the prevertebral or retropharyngeal space. There is no evidence of abnormal thickening of the epiglottis or aryepiglottic folds. The vocal folds appear symmetric. The parotid and submandibular glands are unremarkable. Subcentimeter nodules are seen in the left lobe of thyroid. The right lobe of the thyroid has a diminutive appearance with possible postsurgical changes. No pathologically enlarged cervical lymph nodes are evident. No focal inflammatory changes are demonstrated. No soft tissue mass or fluid collection demonstrated. The vascular structures the neck demonstrate no evidence of high-grade stenosis on this nondedicated exam. The visualized lung apices are clear. A left-sided port is partially visualized. The visualized intracranial contents demonstrate no evidence of pathologic intracranial enhancement or intracranial mass effect. Visualized orbital contents are unremarkable. The visualized paranasal sinuses are clear. The mastoids and middle ears are clear. No acute osseous abnormality in the cervical spine. ACDF changes are visualized from C5 to C7. IMPRESSION: 1. Appropriate symmetry of the aerodigestive tract. 2. No evidence of pathologic adenopathy. 3. No soft tissue mass, fluid collection or focal inflammatory changes demonstrated. 4. Subcentimeter nodules in the left lobe of the thyroid with likely postsurgical changes in the right lobe of the thyroid. This is a similar appearance to the prior exam. Dictated by: Dictated on workstation # [id number]
== END ==
LOC: RAD 12:45
PROVIDERS: ATTEND Otolaryngology Otolaryngology/Facial Plastic Surgery
DX: K44.9 Diaphragmatic hernia without obstruction or gangrene (principal); K21.9 Gastro-esophageal reflux disease without esophagitis; E04.2 Nontoxic multinodular goiter; Z85.3 Personal history of malignant neoplasm of breast
CPT/HCPCS: 36415; 70491; 71250; 74220; 82565; 84520

== ENCOUNTER → 2023-01-29 | Outpatient (CLI) | payer OTHER ==
[~2023-01-29] MED LIST changes: -HOLD METFORMIN - RECEIVED CONTRAST 20 ML VIAL IV SCH; -IOHEXOL 350 MG/ML 100 ML (OMNIPAQUE 350) VIAL IV ONE; -NS 100 ML (IVPB) BAG IV ONE
== END ==
LOC: CARD 14:30
PROVIDERS: ATTEND Internal Medicine Interventional Cardiology
DX: G47.33 Obstructive sleep apnea (adult) (pediatric) (principal); I49.3 Ventricular premature depolarization
CPT/HCPCS: 93306

== ENCOUNTER → 2023-04-14 | Outpatient (CLI) | payer OTHER ==
[~2023-04-14] VITALS: Ht 180 cm; Wt 106.6 kg
[~2023-04-14] MED LIST changes: -DORZ10DR22 OU; +DORZ10DR40 OU
[2023-04-14 13:45] VITALS: BP 116/78
== END ==
LOC: SDC 13:40
PROVIDERS: ATTEND Nurse Practitioner Adult Health
DX: Z45.2 Encounter for adjustment and management of vascular access device (principal)
CPT/HCPCS: 96523

== ENCOUNTER → 2023-07-04 | Outpatient (CLI) | payer OTHER ==
[~2023-07-04] VITALS: Wt 106.6 kg
[~2023-07-04] MED LIST changes: +CATHETER FLUSH 10 ML SYR IVP PRN
[2023-07-04 15:00] VITALS: BP 160/78
== END ==
LOC: SDC 14:46
PROVIDERS: ATTEND Nurse Practitioner Adult Health
DX: Z45.2 Encounter for adjustment and management of vascular access device (principal)
CPT/HCPCS: 96523

== ENCOUNTER → 2023-07-30 | Outpatient (CLI) | payer OTHER ==
[~2023-07-30] MED LIST changes: -CATHETER FLUSH 10 ML SYR IVP PRN
--- NOTE | 2023-07-30 13:05 | Diagnostic Imaging Report ---
EXAMINATION: Chest, 2 views. HISTORY: Cough and hypertension. COMPARISON: 09/20/2022. FINDINGS: The lungs are clear without edema or pneumonia. No pleural effusion or pneumothorax. Heart size is normal. Left-sided port catheter is present. Tip is in the superior vena cava. IMPRESSION: Clear lungs. Dictated by: Dictated on workstation # [id number]
== END ==
LOC: CARD 11:57
PROVIDERS: ATTEND Nurse Practitioner Family
DX: R05.9 Cough, unspecified (principal); I10 Essential (primary) hypertension; M25.532 Pain in left wrist
CPT/HCPCS: 71046; 93005

== ENCOUNTER → 2023-09-04 | Outpatient (CLI) | payer OTHER | LOC: CARD 10:19 | PROVIDERS: ATTEND Internal Medicine Interventional Cardiology | DX: I49.3 Ventricular premature depolarization (principal); G47.33 Obstructive sleep apnea (adult) (pediatric) | CPT/HCPCS: 93306 ==